=== PATIENT | male | born 1940 | race Caucasian/White ===

== ENCOUNTER 2018-05-01 16:07 | Inpatient (IN) ==
--- NOTE | 2018-05-01 17:35 | Emergency Department Note ---
Disposition Clinical Impression: Agitation Altered mental status Qualifiers: Altered mental status type: unspecified Qualified Code(s): R41.82 - Altered mental status, unspecified Alzheimer's dementia Qualifiers: Alzheimer's disease onset: unspecified onset Dementia behavioral disturbance: with behavioral disturbance Qualified Code(s): G30.9 - Alzheimer's disease, unspecified Disposition: Still a Patient Referrals: Tamiko Loco, VEND[employer] MANAGEMENT SPECIALIST [Primary Care Provider] - Forms: ED Satisfaction Letter Time of Disposition: 18:51 Altered Mental Status HPI - General Chief Complaint: ED Altered Mental Status Stated Complaint: AMS Time Seen by Provider: 05/01/18 16:11 Source: EMS Mode of arrival: EMS Limitations: altered mental status Nursing Notes Reviewed: Yes Vital Signs Reviewed: Yes - History of Present Illness HPI Narrative: Patient is a 77-year-old male presenting for altered mental status and agitation. History of Alzheimer's. Patient states that a few hours prior to arrival, he began to have chest pain in the middle of his chest, complains of current chest pain without shortness of breath, no nausea vomiting or diaphoresis. Earlier today, patient was seen by his primary care provider, at that point in time there was concern for agitation and altered mental status w ith confusion that is briskly worsened over the past few weeks, this is reported by the patient's as well as stepdaughter. They state that at the house, patient has been extremely agitated with increased confusion over the past few weeks briskly worse over the past few days, they state that today he became combative, throwing multiple items in the house, almost hitting the patient's . No recent fever, chills, nausea or vomiting. There were multiple medication changes that were performed today by the primary care provider, per the patient's family. Per , on , patient did have a fall when he was seen in the ER. No further falls or injury. - Related Data Home Medications Medication Instructions Recorded Confirmed Aspirin 81 mg PO DAILY 10/09/14 04/29/18 DiphenhydraMINE [Benadryl] 25 mg PO HS 10/09/14 04/29/18 Finasteride [Proscar] 5 mg PO QAM 10/09/14 04/29/18 Lisinopril [Zestril] 20 mg PO QAM 10/09/14 04/29/18 Mirtazapine [Remeron] 15 mg PO HS 10/09/14 04/29/18 Multivit-Min/FA/Lycopen/Lutein 1 each PO QAM 10/09/14 04/29/18 [Centrum Silver Tablet] Pravastatin Sodium 10 mg PO HS 10/09/14 04/29/18 Previous Rx's Medication Instructions Recorded Meclizine [Antivert] 12.5 mg PO TID PRN #30 tablet 10/10/14 Ondansetron [Zofran] 4 mg PO Q8HR PRN #21 tablet 10/10/14 Polyethylene Glycol 3350 [MiraLAX] 17 gm PO DAILY #30 powd.pack 04/29/18 Allergies Allergy/AdvReac Type Severity Reaction Status Date / Time No Known Allergies Allergy Verified 04/27/18 04:53 Review of Systems: In addition to that documented in the HPI above, the additional ROS was obtained: General: Denies fever. Denies chills. Denies weight loss. Affirms confusion Eyes: Denies visual changes. ENT: Denies nasal congestion. Denies sore throat. Denies hearing change. Cardio: Affirms chest pain. Denies palpitations. Respiratory: Denies cough. Denies shortness of breath. Denies wheezing. GI: Denies nausea, Denies vomiting, or diarrhea. Denies hematochezia denies melena. Denies abdominal pain. : Denies dysuria, hematuria, or urinary retention MSK: Denies back pain. Denies joint swelling. Neuro: Denies slurred speech. Denies numbness or tingling. Denies focal weakness. Denies headache. Denies loss of consciousness. Psych: Affirms agitation Past Medical History - Past Medical History Attestation: Yes The following information was validated with the patient. Medical history: Reports: hyperlipidemia, hypertension Surgical history: Reports: herniorrhaphy Psychiatric history: Reports: no psych history - Social History Smoking Status: Former smoker Smokeless Tobacco Status: No Alcohol use: Reports: none Drug use: Reports: none Physical Exam General: Conversant. No apparent distress. Follow commands. Appears stated age. Neck: No JVD. Trachea midline. Neck supple. Eyes: PERRL. No scleral icterus. HENT: Normocephalic and atraumatic. Moist mucus membranes. Cardiovascular: Regular rate and rhythm. Normal S1 and S2. No murmurs appreciated. Normal capillary refill. Extremities well perfused with 2+ distal pulses bilaterally. No edema. Pulmonary: Normal and equal breath sounds bilaterally, anteriorly and po steriorly. No wheezes, rales, or rhonchi. Not in respiratory distress. Speaks in full sentences. Abdomen: Soft, nondistended, without tenderness. No bruits or masses. No guarding or rebound. Neuro: Alert and oriented x3. No slurred speech. No focal deficits noted. Skin: No rashes noted on visualized skin. Musculoskeletal: No bony abnormalities visualized. Moves all extremities. Psych: Patient becomes agitated during questioning, does get an argument with his while I was in the room. - General Limitations: altered mental status General appearance: alert Course Vital Signs Temperature 97.8 F 05/01/18 16:15 Pulse Rate 80 05/01/18 16:15 Respiratory Rate 20 05/01/18 16:15 Blood Pressure 142/69 05/01/18 16:15 O2 Sat by Pulse Oximetry 100 05/01/18 16:15 Temperature 97.8 F 05/01/18 16:15 Pulse Rate 84 05/01/18 18:19 Respiratory Rate 20 05/01/18 18:19 Blood Pressure 155/82 05/01/18 18:19 O2 Sat by Pulse Oximetry 100 05/01/18 18:19 Oxygen Delivery Oxygen Delivery Room Air Altered Mental Status - [facility] Narrative Medical decision making narrative: Patient is a 77-year-old male presenting with altered mental status. Patient has history of Alzheimer's dementia, brought in for chest pain. Patient is coming by his as well as stepdaughter, states this is been progressive confusion and agitation for the past 2 weeks worse over the past few days. Per family, has had agitation with confrontational behavior to his . On examination, patient does appear agitated, quickly going from, cooperative to agitated threatening to leave and pull off all of his cardiac monitoring system pieces. He currently or is refusing IV. CBC, BMP as well as troponin and EKG were performed as well as chest x-ray and CT of the head, all within normal li mits showing no acute intracranial or intracardiac or pulmonary etiology. BMP does show slight hyponatremic at 128, do not suspect this is the etiology or underlying factor causing the acute confusion and agitation. Suspect this is most likely progressive dementia. Patient will need to be reevaluated by 18, suspect facial will need further evaluation and treatment by geriatric psych. In discussion with the patient's daughter and , they are in agreement with this plan. Patient currently stable, he was given 1 mg IV of Ativan, as he was agitated and became uncooperative. [place] slip signed for the patient at 1858. At this point in time, full workup has been performed, patient is medically cleared, will call 1A for further treatment and evaluation. Patient was signed out to the night team, Dr. Martinez and Dr. Weiss, please refer to the MDM for further management. - Medical Records Medical records reviewed: Yes I reviewed the patient's medical records. - Lab Data Lab results reviewed: Yes I reviewed the patient's lab results. Result diagrams: 05/01/18 17:32 05/01/18 17:32 Lab Results 05/01/18 05/01/18 05/01/18 Range/Units 17:32 17:32 18:20 WBC 9.8 (4.3-11.1) K/mcL RBC 4.81 (4.19-5.50) M/mcL Hgb 14.8 (12.9-16.9) g/dL Hct 42.6 (37.5-50.1) % MCV 88.6 (83.0-100.0) fL MCH 30.8 (28.0-33.3) pg MCHC 34.7 (31.6-35.5) g/dL RDW 11.9 (11.5-14.5) % Plt Count 264 (140-400) K/mcL MPV 9.2 L (9.4-12.4) fL Immature Gran % 0.5 (0-4) % Seg Neutrophils % 62.4 % Lymphocytes % 20.3 % Monocytes % 13.8 % Eosinophils % 2.5 % Basophils % 0.5 % Neutrophils # 6.1 (1.6-8.9) K/mcL Lymphocytes # 2.0 (0.6-4.6) K/mcL Monocytes # 1.4 H (0.0-1.3) K/mcL Eosinophils # 0.2 (0.0-0.6) K/mcL Basophils # 0.1 (0.0-0.2) K/mcL Sodium 128 L (136-145) mEq/L Potassium 3.7 (3.5-5.1) mEq/L Chloride 91 L (98-107) mEq/L Carbon Dioxide 28 (23-29) mEq/L BUN 20 (8-23) mg/dL Creatinine 1.15 (0.70-1.30) mg/dL Est GFR ( Amer) > 60 (> 60) Est GFR (Non-Af Amer) > 60 (> 60) BUN/Creatinine Ratio 17 (6-26) Glucose 100 (70-105) mg/dL Calculated Osmolality 269 L (280-300) Calcium 9.7 (8.6-10.3) mg/dL Total Bilirubin 0.4 (0.3-1.0) mg/dL Direct Bilirubin 0.1 (0.0-0.2) mg/dL Indirect Bilirubin 0.3 (0.0-1.2) mg/dL AST 29 (13-39) Units/L ALT 31 (7-52) Units/L Alkaline Phosphatase 76 (34-104) Units/L Troponin I < 0.03 (< 0.04) ng/mL Serum Total Protein 7.1 (6.4-8.9) g/dL Albumin 4.4 (3.5-5.7) g/dL Globulin 2.7 (2.4-3.5) g/dL Albumin/Globulin Ratio 1.6 (1.1-2.2) TSH 0.722 (0.340-5.600) mcIU/mL Urine Color Yellow (Yellow) Urine Clarity Clear (Clear) Urine pH 6.5 (5.0-8.0) pH Units Ur Specific [place] 1.014 (1.010-1.025) Urine Protein Negative (Neg-Trace) mg/dL Urine Glucose (UA) Normal (Normal) mg/dL Urine Ketones Negative (Negative) mg/dL Urine Blood Negative (Negative) Urine Nitrite Negative (Negative) Urine Bilirubin Negative (Negative) Urine Urobilinogen Normal (Normal) mg/dL Ur Leukocyte Esterase Negative (Negative) Urine Opiates Screen (Cpqafb=527) ng/mL Ur Barbiturates Screen (Upvyvl=190) ng/mL Ur Phencyclidine Scrn (Cutoff=25) ng/mL Ur Amphetamines Screen (Apmzjq=6048) ng/mL U Benzodiazepines Scrn (Zktebd=748) ng/mL Urine Cocaine Screen (Cutoff= 300) ng/mL U Marijuana (THC) Screen (Cutoff = 50) ng/mL Ur Drug Screen Interp 05/01/18 Range/Units 18:20 WBC (4.3-11.1) K/mcL RBC (4.19-5.50) M/mcL Hgb (12.9-16.9) g/dL Hct (37.5-50.1) % MCV (83.0-100.0) fL MCH (28.0-33.3) pg MCHC (31.6-35.5) g/dL RDW (11.5-14.5) % Plt Count (140-400) K/mcL MPV (9.4-12.4) fL Immature Gran % (0-4) % Seg Neutrophils % % Lymphocytes % % Monocytes % % Eosinophils % % Basophils % % Neutrophils # (1.6-8.9) K/mcL Lymphocytes # (0.6-4.6) K/mcL Monocytes # (0.0-1.3) K/mcL Eosinophils # (0.0-0.6) K/mcL Basophils # (0.0-0.2) K/mcL Sodium (136-145) mEq/L Potassium (3.5-5.1) mEq/L Chloride (98-107) mEq/L Carbon Dioxide (23-29) mEq/L BUN (8-23) mg/dL Creatinine (0.70-1.30) mg/dL Est GFR ( Amer) (> 60) Est GFR (Non-Af Amer) (> 60) BUN/Creatinine Ratio (6-26) Glucose (70-105) mg/dL Calculated Osmolality (280-300) Calcium (8.6-10.3) mg/dL Total Bilirubin (0.3-1.0) mg/dL Direct Bilirubin (0.0-0.2) mg/dL Indirect Bilirubin (0.0-1.2) mg/dL AST (13-39) Units/L ALT (7-52) Units/L Alkaline Phosphatase (34-104) Units/L Troponin I (< 0.04) ng/mL Serum Total Protein (6.4-8.9) g/dL Albumin (3.5-5.7) g/dL Globulin (2.4-3.5) g/dL Albumin/Globulin Ratio (1.1-2.2) TSH (0.340-5.600) mcIU/mL Urine Color (Yellow) Urine Clarity (Clear) Urine pH (5.0-8.0) pH Units Ur Specific [place] (1.010-1.025) Urine Protein (Neg-Trace) mg/dL Urine Glucose (UA) (Normal) mg/dL Urine Ketones (Negative) mg/dL Urine Blood (Negative) Urine Nitrite (Negative) Urine Bilirubin (Negative) Urine Urobilinogen (Normal) mg/dL Ur Leukocyte Esterase (Negative) Urine Opiates Screen Negative (Unfyhl=892) ng/mL Ur Barbiturates Screen Negative (Emqqcn=670) ng/mL Ur Phencyclidine Scrn Negative (Cutoff=25) ng/mL Ur Amphetamines Screen Negative (Trwbca=4488) ng/mL U Benzodiazepines Scrn Negative (Kjnmcs=464) ng/mL Urine Cocaine Screen Negative (Cutoff= 300) ng/mL U Marijuana (THC) Screen Negative (Cutoff = 50) ng/mL Ur Drug Screen Interp See Below - Radiology Data Radiology results reviewed: Yes I reviewed the patient's radiology results. - EKG Data EKG attestation: Yes I reviewed and interpreted this EKG. EKG results narrative: EKG performed at 1657 ventricular rate of 81, regular rhythm, normal axis, no ST segment elevation or depression, intervals are all within normal limits. TPA Checklist - LKW: 3-4.5 hrs Add. Warnings/Precautions Patient/family understanding: The patient/family members have been counseled and understood the risk, benefit, and alternatives of treatment.
[2018-05-01 17:46] LABS: Basophils # 0.1 K/mcL (0.0-0.2); Basophils % 0.5 %; Eosinophils # 0.2 K/mcL (0.0-0.6); Eosinophils % 2.5 %; Hematocrit 42.6 % (37.5-50.1); Hemoglobin 14.8 g/dL (12.9-16.9); Immature Granulocytes % 0.5 % (0-4); Lymphocytes % 20.3 %; Mean Corpuscular HGB Conc 34.7 g/dL (31.6-35.5); Mean Corpuscular Hemoglobin 30.8 pg (28.0-33.3); Mean Corpuscular Volume 88.6 fL (83.0-100.0); Mean Platelet Volume 9.2 fL (9.4-12.4); Monocytes # 1.4 K/mcL (0.0-1.3); Monocytes % 13.8 %; Neutrophils # 6.1 K/mcL (1.6-8.9); Platelet Count 264 K/mcL (140-400); Red Blood Count 4.81 M/mcL (4.19-5.50); Red Cell Distribution Width 11.9 % (11.5-14.5); Segmented Neutrophils % 62.4 %
[2018-05-01 18:08] LABS: Alanine Aminotransferase 31 Units/L (7-52); Albumin 4.4 g/dL (3.5-5.7); Albumin/Globulin Ratio 1.6 (1.1-2.2); Alkaline Phosphatase 76 Units/L (34-104); Aspartate Amino Transferase 29 Units/L (13-39); BUN/Creatinine Ratio 17 (6-26); Bilirubin,Direct 0.1 mg/dL (0.0-0.2); Bilirubin,Indirect 0.3 mg/dL (0.0-1.2); Bilirubin,Total 0.4 mg/dL (0.3-1.0); Blood Urea Nitrogen 20 mg/dL (8-23); Calcium 9.7 mg/dL (8.6-10.3); Carbon Dioxide 28 mEq/L (23-29); Chloride 91 mEq/L (98-107); Globulin 2.7 g/dL (2.4-3.5); Glucose 100 mg/dL (70-105); Osmolality,Calculated 269 (280-300); Potassium 3.7 mEq/L (3.5-5.1); Sodium 128 mEq/L (136-145); Total Protein 7.1 g/dL (6.4-8.9); Troponin I < 0.03 ng/mL (< 0.04); eGFR For Non-African Americans > 60 (> 60)
[2018-05-01] MEDS ORDERED: *HR* LORazepam 2 MG/ML VIAL IVP ONE (18:14)
--- NOTE | 2018-05-01 18:17 | Emergency Department Note ---
Disposition Clinical Impression: Alzheimer's dementia, Agitation Altered mental status Qualifiers: Altered mental status type: unspecified Qualified Code(s): R41.82 - Altered mental status, unspecified Disposition: Still a Patient Referrals: Tamiko Loco CNP [Primary Care Provider] - Forms: ED Satisfaction Letter General Adult HPI - General Chief complaint: ED Altered Mental Status Stated complaint: AMS Time Seen by Provider: 05/01/18 16:11 Source: EMS Mode of arrival: EMS Limitations: altered mental status - History of Present Illness Pain Scale: 0 - Related Data Home Medications Medication Instructions Recorded Confirmed Aspirin 81 mg PO DAILY 10/09/14 04/29/18 DiphenhydraMINE [Benadryl] 25 mg PO HS 10/09/14 04/29/18 Finasteride [Proscar] 5 mg PO QAM 10/09/14 04/29/18 Lisinopril [Zestril] 20 mg PO QAM 10/09/14 04/29/18 Mirtazapine [Remeron] 15 mg PO HS 10/09/14 04/29/18 Multivit-Min/FA/Lycopen/Lutein 1 each PO QAM 10/09/14 04/29/18 [Centrum Silver Tablet] Pravastatin Sodium 10 mg PO HS 10/09/14 04/29/18 Previous Rx's Medication Instructions Recorded Meclizine [Antivert] 12.5 mg PO TID PRN #30 tablet 10/10/14 Ondansetron [Zofran] 4 mg PO Q8HR PRN #21 tablet 10/10/14 Polyethylene Glycol 3350 [MiraLAX] 17 gm PO DAILY #30 powd.pack 04/29/18 Allergies Allergy/AdvReac Type Severity Reaction Status Date / Time No Known Allergies Allergy Verified 04/27/18 04:53 Past Medical History - Past Medical History Medical history: Reports: hyperlipidemia, hypertension Surgical history: Reports: herniorrhaphy Psychiatric history: Reports: no psych history - Social History Smoking Status: Former smoker Smokeless Tobacco Status: No Alcohol use: Reports: none Drug use: Reports: none Physical Exam - General Limitations: altered mental status General appearance: alert Course Vital Signs Temperature 97.8 F 05/01/18 16:15 Pulse Rate 80 05/01/18 16:15 Respiratory Rate 20 05/01/18 16:15 Blood Pressure 142/69 05/01/18 16:15 O2 Sat by Pulse Oximetry 100 05/01/18 16:15 Temperature 97.8 F 05/01/18 16:15 Pulse Rate 80 05/01/18 16:15 Respiratory Rate 20 05/01/18 16:15 Blood Pressure 142/69 05/01/18 16:15 O2 Sat by Pulse Oximetry 100 05/01/18 16:15 Oxygen Delivery Oxygen Delivery Room Air Medical Decision Making - Medical Records Medical records reviewed: Yes I reviewed the patient's medical records. - Lab Data Lab results reviewed: Yes I reviewed the patient's lab results. Result diagrams: 05/01/18 17:32 05/01/18 17:32 Lab Results 05/01/18 05/01/18 Range/Units 17:32 17:32 WBC 9.8 (4.3-11.1) K/mcL RBC 4.81 (4.19-5.50) M/mcL Hgb 14.8 (12.9-16.9) g/dL Hct 42.6 (37.5-50.1) % MCV 88.6 (83.0-100.0) fL MCH 30.8 (28.0-33.3) pg MCHC 34.7 (31.6-35.5) g/dL RDW 11.9 (11.5-14.5) % Plt Count 264 (140-400) K/mcL MPV 9.2 L (9.4-12.4) fL Immature Gran % 0.5 (0-4) % Seg Neutrophils % 62.4 % Lymphocytes % 20.3 % Monocytes % 13.8 % Eosinophils % 2.5 % Basophils % 0.5 % Neutrophils # 6.1 (1.6-8.9) K/mcL Lymphocytes # 2.0 (0.6-4.6) K/mcL Monocytes # 1.4 H (0.0-1.3) K/mcL Eosinophils # 0.2 (0.0-0.6) K/mcL Basophils # 0.1 (0.0-0.2) K/mcL Sodium 128 L (136-145) mEq/L Potassium 3.7 (3.5-5.1) mEq/L Chloride 91 L (98-107) mEq/L Carbon Dioxide 28 (23-29) mEq/L BUN 20 (8-23) mg/dL Creatinine 1.15 (0.70-1.30) mg/dL Est GFR ( Amer) > 60 (> 60) Est GFR (Non-Af Amer) > 60 (> 60) BUN/Creatinine Ratio 17 (6-26) Glucose 100 (70-105) mg/dL Calculated Osmolality 269 L (280-300) Calcium 9.7 (8.6-10.3) mg/dL Total Bilirubin 0.4 (0.3-1.0) mg/dL Direct Bilirubin 0.1 (0.0-0.2) mg/dL Indirect Bilirubin 0.3 (0.0-1.2) mg/dL AST 29 (13-39) Units/L ALT 31 (7-52) Units/L Alkaline Phosphatase 76 (34-104) Units/L Troponin I < 0.03 (< 0.04) ng/mL Serum Total Protein 7.1 (6.4-8.9) g/dL Albumin 4.4 (3.5-5.7) g/dL Globulin 2.7 (2.4-3.5) g/dL Albumin/Globulin Ratio 1.6 (1.1-2.2) - Radiology Data Radiology results reviewed: Yes I reviewed the patient's radiology results. Attestation Statement - Attestation Attestation: I examined this patient and my medical decision-making was reviewed with the Resident Physician. I agree with the documented findings, disposition and treatment plan as described except to the extent set forth below. 77-year-old male presents emergency room for psychiatric evaluation. Patient apparently has a history of Alzheimer's. His had increasing aggression and agitation and confusion over the last couple weeks. Patient is becoming more aggressive with family members. He said change in personality and behavior. Appetite changes as well. Concerns for worsening psychiatric disease. Patient was sent to the ER for evaluation and medical clearance to be placed somewhere for psychiatric evaluation. Patient is alert and oriented at this time. He has no complaints to us. There was complaints of chest pain earlier today. Patient was also confused and agitated at that time. EKG was nondiagnostic. CT of the head was negative. Chest x-ray was normal. Awaiting lab work and drug urinalysis screen.
[2018-05-01 18:21] LABS: Thyroid Stimulating Hormone 0.722 mcIU/mL (0.340-5.600)
[2018-05-01] MEDS ORDERED: *HR* LORazepam 2 MG/ML VIAL IM ONE (18:21)
[2018-05-01 18:39] LABS: Bilirubin,Urine Negative (Negative); Blood,Urine Negative (Negative); Clarity,Urine Clear (Clear); Color,Urine Yellow (Yellow); Glucose,Urine (UA) Normal (Normal); Ketones,Urine Negative (Negative); Leukocyte Esterase,Urine Negative (Negative); Nitrite,Urine Negative (Negative); PH,Urine 6.5 pH Units (5.0-8.0); Protein,Urine Negative (Neg-Trace); Specific Gravity,Urine 1.014 (1.010-1.025); Urobilinogen,Urine Normal (Normal)
[2018-05-01 18:59] LABS: Amphetamine Screen,Urine Negative ng/mL (Cutoff=1000); Barbiturate Screen,Urine Negative ng/mL (Cutoff=200); Benzodiazepines Screen,Urine Negative ng/mL (Cutoff=200); Cannabinoid Screen,Urine Negative ng/mL (Cutoff = 50); Cocaine Screen,Urine Negative ng/mL (Cutoff= 300); Opiate Screen,Urine Negative ng/mL (Cutoff=300); Phencyclidine Screen,Urine Negative ng/mL (Cutoff=25)
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
[2018-05-01] MEDS ORDERED: 0.9 % Sodium Chloride 500 ML IVC ONE (20:31)
[2018-05-01] MEDS ORDERED: Naloxone 0.4 MG/ML INJ IVP PRN (22:17)
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
[2018-05-02] MEDS: traMADol 50 MG TABLET PO PRN ×2 (00:20→17:42)
[2018-05-02] MEDS ORDERED: BENZOCAINE/MENTHOL 1 LOZENGE (BAG OF 6) MM PRN (01:47)
[2018-05-02 01:53] LABS: Hematocrit 36.4 % (37.5-50.1); Mean Corpuscular HGB Conc 35.7 g/dL (31.6-35.5); Mean Corpuscular Hemoglobin 31.3 pg (28.0-33.3); Mean Corpuscular Volume 87.7 fL (83.0-100.0); Mean Platelet Volume 9.2 fL (9.4-12.4); Platelet Count 211 K/mcL (140-400); Red Blood Count 4.15 M/mcL (4.19-5.50); Red Cell Distribution Width 11.8 % (11.5-14.5)
[2018-05-02 02:08] LABS: BUN/Creatinine Ratio 15 (6-26); Blood Urea Nitrogen 15 mg/dL (8-23); Calcium 8.6 mg/dL (8.6-10.3); Carbon Dioxide 22 mEq/L (23-29); Chloride 93 mEq/L (98-107); Cholesterol 136 mg/dL (< 200); Glucose 160 mg/dL (70-105); HDL Cholesterol 46 mg/dL (40-59); LDL Cholesterol,Calculated 71 mg/dL (0-99); Magnesium 2.1 mg/dL (1.6-2.6); Osmolality,Calculated 264 (280-300); Potassium 3.8 mEq/L (3.5-5.1); Sodium 125 mEq/L (136-145); Triglycerides 97 mg/dL (< 150); eGFR For Non-African Americans > 60 (> 60)
[2018-05-02 04:03] LABS: Adenovirus Not Detected (Not Detect); Bordetella Pertussis Not Detected (Not Detect); Chlamydophila pneumoniae Not Detected (Not Detect); Coronavirus 229E Not Detected (Not Detect); Coronavirus HKU1 Not Detected (Not Detect); Coronavirus NL63 Not Detected (Not Detect); Coronavirus OC43 Not Detected (Not Detect); Human Metapneumovirus Not Detected (Not Detect); Human Rhinovirus/Enterovirus Not Detected (Not Detect); Influenza A Subtype 2009 H1 Not Detected (Not Detect); Influenza A Untypeable Not Detected (Not Detect); Influenza B Not Detected (Not Detect); Mycoplasma pneumoniae Not Detected (Not Detect); Parainfluenza Virus 1 Not Detected (Not Detect); Parainfluenza Virus 2 Not Detected (Not Detect); Parainfluenza Virus 3 Not Detected (Not Detect); Parainfluenza Virus 4 Not Detected (Not Detect); Respiratory Syncytial Virus Not Detected (Not Detect)
[2018-05-02] MEDS: Lisinopril 20 MG TABLET PO SCH (09:32)
[2018-05-02] MEDS: amLODIPine 5 MG TABLET PO SCH (09:32)
[2018-05-02] MEDS: Finasteride 5 MG TABLET PO SCH (09:32)
[2018-05-02] MEDS: Loratadine 10 MG TABLET PO SCH (09:32)
[2018-05-02] MEDS: Aspirin 81 MG TAB.CHEW PO SCH (09:32)
--- NOTE | 2018-05-02 09:35 | Neurology - Consult Note ---
<Celso Sanchez - Last Filed: 05/02/18 09:33> Date of Encounter: 05/02/18 Time of Encounter: 09:33 Assessment and Plan (1) Altered mental status Current Visit: Yes Status: Acute neurology consulted to evaluate for cause of altered mental state. Patient has had progressive agitation, combativeness and mental status alterations times approximately 2 weeks. Etiology remains unclear. Likely multifactorial with metabolic derangements and new medication changes. Encephalopathic. Neuro exam is nonfocal and nonlateralizing. MRI of brain negative for acute intracranial abnormality; chronic microvascular ischemic changes seen. CT of head negative for acute abnormality. PLAN: EEG Evaluate medication list; D/W regarding new medications. History of Present Illness Chief complaint: AMS, aggression and episodic confusion HPI: Mr. Denney is a 77 year old male with a PMH of HLD, HTN, and dementia who presents to the ED with an altered mental state, headache, increased anger and aggressive and combative behavior over the past week. This behavior has been progressively worse over the last few days. He has also had a disturbed sleep/wake cycle with the spouse reporting that he has not been sleeping well. He denies any neuro s/sx including visual changes, dizziness/lightheadedness, dysphagia, dysarthria, and/neck pain, fevers, chills, nausea, vomiting, diarrh ea, urinary S/SX, unilateral weakness/paresthesias. CT of head completed in the ED and was found to be negative for acute intracranial abnormality. MRI of the brain completed today showing no acute intracranial abnormality, no acute infarction or medial temporal sclerosis. Findings on MRI showing age related parenchymal volume loss and mild chronic microvascular ischemic changes. Past Med Surg Social Fam HX - Past Medical History Medical history: hyperlipidemia, hypertension, other (Urinary retention) Additional medical history: ALZHEIMERS Psychiatric history: depression - Past Surgical History Surgical History: herniorrhaphy Additional surgical history: heart cath - Social History Smoking Status: Former smoker Packs per day: 1 PPD - Reports quitting 35 years ago Smokeless Tobacco Status: No Alcohol use: none Drug use: none - Family History Mother Race: Family Member Ethnicity: Non- Living Status: Age at : 94 Cause of : Alzheimer's disease Hx Family Endocrine Disorder: Yes (DM) Brother Race: Family Member Ethnicity: Non- Living Status: Still Living Hx Family Cardiac Disorders: Yes (CAD, CABG) Sister Race: Family Member Ethnicity: Non- Living Status: Age at : 20 Cause of : Colon cancer Hx Family Cancer: Yes (Colon) Father Race: Family Member Ethnicity: Non- Living Status: Cause of : Cancer Hx Family Cardiac Disorders: Yes Hx Family Cancer: Yes (Prostate cancer) Medications and Allergies Aspirin 81 mg PO DAILY 10/09/14 [History] Finasteride [Proscar] 5 mg PO QAM 10/09/14 [History] Lisinopril [Zestril] 20 mg PO QAM 10/09/14 [History] Mirtazapine [Remeron] 15 mg PO HS 10/09/14 [History] Pravastatin Sodium 10 mg PO HS 10/09/14 [History] Polyethylene Glycol 3350 [MiraLAX] 17 gm PO DAILY #30 powd.pack 04/29/18 [Rx] Donepezil [Aricept] 5 mg PO HS 05/01/18 [History] Fluticasone Propionate Nasal [Flonase] 100 mcg NS DAILY 05/01/18 [History] LORazepam [Ativan] 0.5 - 1 mg PO HS PRN 05/01/18 [History] Loratadine [Allergy Relief] 10 mg PO DAILY 05/01/18 [History] amLODIPine [Norvasc] 5 mg PO DAILY 05/01/18 [History] Allergy/AdvReac Type Severity Reaction Status Date / Time No Known Allergies Allergy Verified 04/27/18 04:53 All Systems: The remainder of the systems were reviewed and are negative Review of Systems: REVIEW OF SYSTEMS GENERAL: Negative for any nausea, vomiting, fevers, chills, or weight loss, fatigue NEUROLOGIC: Negative for any visual changes, facial asymmetry, dysphagia, dysa rthria, hemiparesis, hemisensory deficits, convulsive activity, unilateral weakness or numbness/tingling, or parasthesias Positive for episodic dizziness without aggravating factors PSYCH: Positive for agitation/irritability, and aggression (new to patient) HEENT: Negative for any head trauma, neck trauma, neck stiffness, photophobia, phonophobia CARDIAC: Negative for any chest pain, dyspnea, palpitations GASTROINTESTINAL: Negative for any abdominal pain, nausea, vomiting GENITOURINARY: Negative for any dysuria, incontinence, or polyuria. MUSCULOSKELETAL: denies loss of strength Physical Examination - Vital Signs Vital Signs: Initial Vital Signs Temp Pulse Resp BP Pulse Ox 97.8 F 80 20 142/69 100 05/01/18 16:15 05/01/18 16:15 05/01/18 16:15 05/01/18 16:15 05/01/18 16:15 - Exam Exam: Examination: General Examination: *CONSTITUTIONAL: Alert and oriented x3, no acute distress *GENERAL APPEARANCE OF PATIENT elderly male, overall appears healthy and well groomed *EYES: pupils equal, round, reactive to light and accommodation, conjunctiva clear *CARDIOVASCULAR RRR, S1, S2, no peripheral edema, 2+ radial and dorsalis pedis pulses normal. Musculoskeletal: *GAIT AND STATION normal, with normal Romberg testing, no abnormalities such as broad base gait or spasticity *ASSESSMENT OF MUSCLE STRENGTH IN THE UPPER AND LOWER EXTREMITIES bilateral deltoid, bicep, tricep, blast hole driller strength, hip flexors ,anterior tibialis, dorsoflexion of the foot 5/5 *MUSCLE TONE IN THE UPPER AND LOWER EXTREMITIES normal. No abnormal movements, fasciculations or atrophy identified. Neurological: *ORIENTATION to person, situation, time and place *RECURRENT AND REMOTE MEMORY intact *ATTENTION AND CONCENTRATION are normal *LANGUAGE FUNCTION no significant aphasia or dysarthia was noted. *FUND OF KNOWLEDGE aware of current events, past history, vocabulary *MENTAL attention span and concentration normal. *CN II optic fundi were normal, no papilledema noted. *CN III,IV, PERRLA extraocular eye movements were full, no nystagmus and no ptosis noted. *CN V shows normal sensation and jaw opens symmetrically. *CN VII shows normal facial movement symmetrically, upper and lower bilaterally. *CN VIII shows no significant hearing loss on exam *CN IX,,X palate elevated symmetrically *CN XI normal strength in the sternocleidomastoid muscles, symmetrical shoulder shrugging. *CN XII tongue protruded in the midline, with normal strength and movement. *SENSORY EXAMINATION light touch intact *REFLEXES: deep tendon reflexes were normal and symmetrical , grade 2/4 diffusely, no pathological reflexes were noted. *CEREBELLAR TESTING normal finger to nose, heel/knee/haynes *PAIN LEVEL 0 Results - Laboratory Findings CBC and BMP: 05/02/18 01:12 05/02/18 01:12 Abnormal lab findings: Abnormal lab results RBC 4.15 M/mcL (4.19-5.50) L 05/02/18 01:12 Hct 36.4 % (37.5-50.1) L 05/02/18 01:12 MCHC 35.7 g/dL (31.6-35.5) H 05/02/18 01:12 MPV 9.2 fL (9.4-12.4) L 05/02/18 01:12 Monocytes # 1.4 K/mcL (0.0-1.3) H 05/01/18 17:32 Sodium 125 mEq/L (136-145) L 05/02/18 01:12 Chloride 93 mEq/L (98-107) L 05/02/18 01:12 Carbon Dioxide 22 mEq/L (23-29) L 05/02/18 01:12 Glucose 160 mg/dL (70-105) H 05/02/18 01:12 Calculated Osmolality 264 (280-300) L 05/02/18 01:12 - Diagnostic Findings Additional findings: XR/XR chest 1V portable IMPRESSION: No radiographic evidence of acute cardiopulmonary process. CT/CT head/brain wo con IMPRESSION: No acute intracranial abnormality. MR/MR head/brain wo con IMPRESSION: 1. No acute intracranial abnormality. No acute infarction or medial temporal sclerosis. 2. Age-related parenchymal volume loss and mild chronic microvascular ischemic changes. Consult Discharge Plan - Plan Referrals: Tamiko Loco CNP [Primary Care Provider] - <Otto Severino I - Last Filed: 05/02/18 16:01> Date of Encounter: 05/02/18 Assessment and Plan (1) Altered mental status Current Visit: Yes Status: Acute I have personally performed a face to face diagnostic evaluation, including HPI, EXAM, which is included in the Assesment and plan, which was discussed with Celso Sanchez CNP, I agree with the above outlined documentation. Otto Severino MD. NeurologyI Qualifiers: Qualified Code(s): R41.0 - Disorientation, unspecified History of Present Illness HPI: Mr. Denney is a 77 year old male All Systems: The remainder of the systems were reviewed and are negative Physical Examination - Vital Signs Vital Signs: Initial Vital Signs Temp Pulse Resp BP Pulse Ox 97.8 F 80 20 142/69 100 05/01/18 16:15 05/01/18 16:15 05/01/18 16:15 05/01/18 16:15 05/01/18 16:15 Results - Laboratory Findings CBC and BMP: 05/02/18 01:12 05/02/18 01:12 Abnormal lab findings: Abnormal lab results RBC 4.15 M/mcL (4.19-5.50) L 05/02/18 01:12 Hct 36.4 % (37.5-50.1) L 05/02/18 01:12 MCHC 35.7 g/dL (31.6-35.5) H 05/02/18 01:12 MPV 9.2 fL (9.4-12.4) L 05/02/18 01:12 Monocytes # 1.4 K/mcL (0.0-1.3) H 05/01/18 17:32 Sodium 125 mEq/L (136-145) L 05/02/18 01:12 Chloride 93 mEq/L (98-107) L 05/02/18 01:12 Carbon Dioxide 22 mEq/L (23-29) L 05/02/18 01:12 Glucose 160 mg/dL (70-105) H 05/02/18 01:12 Serum Osmolality 260 mOsm/kg (280-300) L 05/02/18 10:17 Calculated Osmolality 264 (280-300) L 05/02/18 01:12 Folate 21.0 ng/mL (3.0-16.0) H 05/02/18 10:17 Urine Osmolality 87 mOsm/kg (300-1090) L 05/02/18 11:45
--- NOTE | 2018-05-02 09:55 | Internal Med Progress Note ---
Hospitalist Progress Note - Encounter Date of Encounter: 05/02/18 Time of Encounter: 09:55 - Subjective Interval History: He was seen and examined at bedside currently patient is alert and oriented 3 following simple commands denies any suicidal or homicidal ideations at this time no seizure activity noted continues to be on one-to-one observation - Exam Vitals: Temp Pulse Resp BP Pulse Ox 98.4 F 87 16 124/72 96 05/02/18 06:19 05/02/18 06:19 05/02/18 06:19 05/02/18 06:19 05/02/18 06:19 Exam: Skin: Free of rash and discoloration. Eyes: Sclera is white. There is no discharge from eyes. ENMT: Oral/pharyngeal mucosa is normal in appearance. There is no discharge from nose or ears. Respiratory: Normal breath sounds with no crackles and wheezes bilaterally. CV: Heart is regular with no gallop or murmur. GI: Abdomen is flat and soft with no palpable mass or visceromegaly. : There is no tenderness in patient's flanks bilaterally. Neuro exam: He has good strength in upper and lower extremities. He has normal eye movements. Psychiatric: He has normal affect. His thought process is appropriate to the situation. - Assessment and Plan (1) Acute encephalopathy Current Visit: Yes Status: Acute Assessment and Plan: Suspect that this is multifactorial however etiology remains unclear possible metabolic/ dementia- patient does have some hyponatremia and has had some new medication changes. Patient has not been sleeping which could be contributing -Infectious workup is been negative We will check thiamine B12 and folic acid check TSH MRI no acute intracranial abnormalities no acute infarcts or medial temporal sclerosis CT of head negative for any intracranial abnormalities Avoid benzos continue with Haldol and Seroquel as well as Aricept and Remeron Neurology and psychiatry have been consulted and appreciate recommendations EEG ordered per neurology (2) HTN (hypertension) Current Visit: Yes Status: Chronic Assessment and Plan: Hx of chronic HTN. Monitor pt. and VS. currently stable continue to monitor continue home medications (3) Suicidal ideation Current Visit: Yes Status: Acute Assessment and Plan: Presentation patient displayed acute suicidal ideations. 02/14 sitter. Currently patient denies any suicidal or homicidal thoughts -patient has been pleasant and cooperative psychiatry was consulted-recommending continue Seroquel 25 mg by mouth daily at bedtime and discontinuing medication once altered mental state has improved recommending continuing 1-1 sitter-due to waning delirium - recommending discontinuing 1-1 sitter once prolonged baseline is seen Avoid benzos recommending Haldol 5 mg by mouth every hours when necessary for severe agitation A (4) Behavior safety risk Current Visit: Yes Status: Acute Assessment and Plan: Patient is calm and cooperative today seen by psychiatry recommending continue Seroquel 25 mg daily at bedtime for calming Continue home dose of mirtazapine and denies a Prill Hold lorazepam and avoid benzos Haldol 5 mg orally every 8 hours as needed for severe agitation and combative behavior Continue with / observation Fall precautions (5) Chronic headaches Current Visit: Yes Status: Acute Assessment and Plan: Currently denies any headaches -MRI of brain showing no acute intracranial abnormality no acute infarction or medial temporal sclerosis CT of head completed in the ED and was found to be negative for any acute intracranial abnormality Neurology has been consulted and appreciate recommendations A (6) Discomfort in chest Current Visit: Yes Status: Acute Assessment and Plan: Troponins negative [address]-T wave abnormalities continue with aspirin and statin Echo pending (7) SOB (shortness of breath) Current Visit: Yes Status: Acute Assessment and Plan: Oxygen saturation has been stable he has been able the room without any difficulty Echo has been ordered and is pending (8) History of appetite changes Current Visit: Yes Status: Acute Assessment and Plan: Nutritional consult for supplements (9) Insomnia Current Visit: Yes Status: Acute Assessment and Plan: Continue with Seroquel and sitter (10) HLD (hyperlipidemia) Current Visit: Yes Status: Chronic Assessment and Plan: Hx of chronic HLD. Lipid panel in a.m. labs. Continue pts. Zocor. (11) DVT prophylaxis Current Visit: Yes Status: Acute Assessment and Plan: Bilateral SCDs on LEs for DVT prophylaxis until MRI done and resulted. (12) Dementia Current Visit: Yes Status: Chronic Assessment and Plan: Hx of dementia. Continue pts. Aricept w/caution d/t risk of QT prolongation. Cardiac monitoring ordered. (13) Anxiety and depression Current Visit: Yes Status: Chronic Assessment and Plan: Hx of anxiety and depression. Pt. takes Ativan and Remeron daily. Will continue these. Adding Seroquel 25 mg HS per Neurology recommendations for behavioral changes. (14) Weakness Current Visit: Yes Status: Acute Assessment and Plan: Consult PT and OT Falls precautions Obtain cardiac echo Rule out infectious process-respiratory panel is negative blood cultures are pending no white count chest x-ray no acute process urinalysis negative (15) Hyponatremia Current Visit: Yes Status: Acute Assessment and Plan: Sodium 125 today no neurological deficits noted no seizure activity noted. Nursing staff reports patient has been drinking large quantities of water-this may be contributing to his hyponatremia Will obtain urine osmole and serum osmole and urine sodium We will place on fluid restriction 1.5 mL Monitor intake and output Monitor sodium - Time Spent with Patient Total time spent is greater than 50% in coordination of care (as documented) at patient's floor/unit and/or counseling patient: Internal Medicine: Result - Labs CBC & Chem 7: 05/02/18 01:12 05/02/18 01:12 Labs: Short CBC 05/01/18 05/02/18 Range/Units 17:32 01:12 WBC 9.8 6.5 (4.3-11.1) K/mcL Hgb 14.8 13.0 D (12.9-16.9) g/dL Hct 42.6 36.4 L (37.5-50.1) % Plt Count 264 211 (140-400) K/mcL Neutrophils # 6.1 (1.6-8.9) K/mcL BMP 05/01/18 05/02/18 17:32 01:12 Sodium 128 L 125 L Potassium 3.7 3.8 Chloride 91 L 93 L Carbon Dioxide 28 22 L BUN 20 15 Creatinine 1.15 0.98 Glucose 100 160 H Calcium 9.7 8.6 Cardiac Enzymes 05/01/18 05/01/18 05/02/18 Range/Units 17:32 22:56 01:12 Troponin I < 0.03 < 0.03 < 0.03 (< 0.04) ng/mL Liver Function 05/01/18 Range/Units 17:32 Total Bilirubin 0.4 (0.3-1.0) mg/dL Direct Bilirubin 0.1 (0.0-0.2) mg/dL AST 29 (13-39) Units/L ALT 31 (7-52) Units/L Alkaline Phosphatase 76 (34-104) Units/L Albumin 4.4 (3.5-5.7) g/dL Urine 03/18/19 Range/Units 18:20 Urine Color Yellow (Yellow) Urine Clarity Clear (Clear) Urine pH 6.5 (5.0-8.0) pH Units Ur Specific [place] 1.014 (1.010-1.025) Urine Protein Negative (Neg-Trace) mg/dL Urine Glucose (UA) Normal (Normal) mg/dL - Impressions Impressions Chest X-Ray 05/01/18 16:48 IMPRESSION: No radiographic evidence of acute cardiopulmonary process. D/ / 05/01/2018 17:10:59 Bob Torres MD / xuan Interpreting Provider: Bob Torres MD Head CT 05/01/18 17:26 IMPRESSION: No acute intracranial abnormality. D/ / Xenia Allison MD / Xenia Allison MD Interpreting Provider: Xenia Allison MD Brain MRI 05/02/18 21:56 IMPRESSION: 1. No acute intracranial abnormality. No acute infarction or medial temporal sclerosis. 2. Age-related parenchymal volume loss and mild chronic microvascular ischemic changes. D/ / 05/02/2018 08:16:02 Zane Xiao MD / xuan Interpreting Provider: Zane Xiao MD - VTE Documentation of Mechanical Device: Intermittent pneumatic compression device Consult Discharge Plan - Plan Referrals: Tamiko Loco, [facility] [Primary Care Provider] - (2) HTN (hypertension) Qualifiers: Hypertension type: essential hypertension Qualified Code(s): I10 - Essential (primary) hypertension (5) Chronic headaches Qualifiers: Headache type: unspecified Intractability: intractable Qualified Code(s): R51 - Headache (9) Insomnia Qualifiers: Insomnia type: other insomnia Qualified Code(s): G47.09 - Other insomnia (10) HLD (hyperlipidemia) Qualifiers: Hyperlipidemia type: pure hypercholesterolemia Qualified Code(s): E78.00 - Pure hypercholesterolemia, unspecified; E78.0 - Pure hypercholesterolemia (12) Dementia Qualifiers: Dementia type: unspecified type Dementia behavioral disturbance: with behavioral disturbance Qualified Code(s): F03.91 - Unspecified dementia with behavioral disturbance
[2018-05-02] MEDS: Acetaminophen 325 MG TABLET PO PRN ×2 (10:03→19:41)
[2018-05-02] MEDS: Fluticasone Propionate Nasal 50 MCG/SPRAY BOTTLE NS SCH (10:03)
--- NOTE | 2018-05-02 13:05 | Consult Note ---
Date of Encounter: 05/03/18 Time of Encounter: 12:40 Assessment & Recommendation (1) Altered mental status Current visit: Yes Status: Acute Assessment & Recommendation: -Due to several confounding factors, including a current sodium of 125, it is unlikely that the altered mental status experience is purely due to to psychiatric illness or dementia. -Recommend continuing quetiapine 25 mg by mouth daily at bedtime for calming, discontinuing medication once altered mental status has improved -Recommend continuing home doses of mirtazapine and donepezil -Recommend continuing the hold home dose of lorazepam, as this can further confuse the patient -Recommend starting haloperidol 5 mg by mouth every 8 hours when necessary if there is any severe agitation or combative behavior -Recommend against starting benzodiazepines or other sedating drugs, as it can make the patient's altered mental status worse -Recommend continuing one-to-one sitter, as current status may be a waning of delirium. May recommend discontinuing one-to-one sitter once prolonged baseline is seen -Will continue to monitor Qualifiers: Altered mental status type: delirium Qualified Code(s): R41.0 - Disorientation, unspecified History of Present Illness Patient: new to practice Requesting Physician: Gaye Moseley MD Reason for consult: Altered mental status History of present illness: Mr. Denney is a 77 year old male with a past psychiatric history of major neuroc ognitive disorder, Alzheimer's type who was admitted on 05/01/2018 and he was consulted today for altered mental status. Reports state that and daughter explained that patient has become increasingly combative over the past few weeks. Patient presented to his PCP before admission he suggested that the visit due to altered mental status. Patient was admitted on 04/27/2018 and discharged on 04/29/2018 for weakness status post fall. Reports also explained that patient reported suicidal ideation due to the idea that he was dying. He was pink slipped. When speaking with the patient, he is logical and linear and speech, stating that he is "a lot better." He explains that he had carbon monoxide poisoning causing his medical issues. He reports a current 10 out of 10 headache and uses this headache to explain a lot of the questions he is unable to answer. He is unable to give this provider that date, even the year. He is not able to tell his provider the president's name, but was able to explain core aspects of him, stating that he has "a lot of money." He was also unable to out right state how many children he has, having to count them out. He denies issues of depression and anxiety today. He denies issues of appetite. He does report poor sleep but explains that his PCP assist with this. He denies side effects to his psychiatric medications. He denies current SI, HI, AH, and VH. He does admit to suicidal ideation previously in the admission. He explains that he had a "when I thought I was going to ." He reports that "nobody was going to help me, so as to help myself." However, he reports that he is not going to really harm himself, stating "I do not want to go down, I want to go up." He reports protective factors of "I want to go to [facility]." He denies past suicide attempts. He denies current SI. Nursing staff denies any abnormal behavior or combative behavior since she has been on shift this a.m. CC: Gaye Moseley MD Past Med Surg Social Fam HX - Past Medical History Source: patient Medical history: hyperlipidemia, hypertension, other (Urinary retention) - Past Psychiatric History Psychiatric history: Reports: anxiety, depression, other (Major neurocognitive disorder). Denies: prior suicide attempt Past psychiatric history details: Denies history of suicide attempt Family psychiatric history: Unknown Family History of Suicide: Unknown - Past Surgical History Surgical History: herniorrhaphy - Social History Smoking Status: Former smoker Smokeless Tobacco Status: No Alcohol use: none Drug use: none Occupational status: other Current living situation: Other Activity Level: Other - Family History Brother Race: Family Member Ethnicity: Non- Living Status: Still Living Hx Family Cardiac Disorders: Yes (CAD, CABG) Father Race: Family Member Ethnicity: Non- Living Status: Cause of : Cancer Hx Family Cardiac Disorders: Yes Hx Family Cancer: Yes (Prostate cancer) Mother Race: Family Member Ethnicity: Non- Living Status: Age at : 94 Cause of : Alzheimer's disease Hx Family Endocrine Disorder: Yes (DM) Sister Race: Family Member Ethnicity: Non- Living Status: Age at : 20 Cause of : Colon cancer Hx Family Cancer: Yes (Colon) Medications & Allergies RX: Aspirin 81 mg PO DAILY 10/09/14 [History] RX: Finasteride [Proscar] 5 mg PO QAM 10/09/14 [History] RX: Lisinopril [Zestril] 20 mg PO QAM 10/09/14 [History] RX: Mirtazapine [Remeron] 15 mg PO HS 10/09/14 [History] RX: Pravastatin Sodium 10 mg PO HS 10/09/14 [History] Polyethylene Glycol 3350 [MiraLAX] 17 gm PO DAILY #30 powd.pack 04/29/18 [Rx] Donepezil [Aricept] 5 mg PO HS 05/01/18 [History] Fluticasone Propionate Nasal [Flonase] 100 mcg NS DAILY 05/01/18 [History] LORazepam [Ativan] 0.5 - 1 mg PO HS PRN 05/01/18 [History] Loratadine [Allergy Relief] 10 mg PO DAILY 05/01/18 [History] amLODIPine [Norvasc] 5 mg PO DAILY 05/01/18 [History] Allergy/AdvReac Type Severity Reaction Status Date / Time No Known Allergies Allergy Verified 04/27/18 04:53 Review of Systems Neurological: Reports: headache Psychiatric: Reports: abnormal sleep pattern, memory loss. Denies: depression, anxiety, suicidal ideation, homicidal ideation, auditory hallucinations, visual hallucinations, confusion Psychiatry Exam - Constitutional Vitals: Temp Pulse Resp BP Pulse Ox 98.2 F 76 15 129/74 98 05/02/18 12:11 05/02/18 12:11 05/02/18 12:11 05/02/18 12:11 05/02/18 12:11 General appearance: age & developmentally appropriate, well-groomed, well- nourished, average - Musculoskeletal Gait: other (Not assessed) Station: relaxed Strength & Tone: normal for patient (Grossly) - Psychiatric Patient Orientation: Yes Person, Yes Time, Yes Place, Yes Circumstance (Did not know the president's name, was able to state core aspects about him, such as him having great wealth in that his was young) Level of alertness: Alert, Follows commands Behavior: calm, cooperative Psychomotor activity: Normal Eye Contact: Maintains Eye Contact Mood Description: Euthymic/stable Patient description of mood: "A lot better" Affect description: congruent with mood, full range Speech Volume: Normal Speech pattern: normal rate, normal rhythm, normal tone, fluent, spontaneous Language & Vocabulary: consistent with education Thought Process: Logical, Linear, Goal Oriented Thought Content: No Suicidal ideation, No Homicidal ideation, No Overt delusions Perceptual Disturbances: No Reacting to internal stimuli, No Auditory hallucinations, No Visual hallucinations Attention Span Ability: Capable of Focused Attention Memory Description: Grossly Intact Patient Reliability: Questionable Historian Fund of knowledge: Yes abstraction ability, Yes aware of current events Intelligence Estimate: Average Judgment: Fair Insight: Partial Results - Drug Levels and Toxicology Drug Levels and Toxicology: Drug Levels and Toxicity 05/01/18 18:20 Urine Opiates Screen Negative Ur Barbiturates Screen Negative Ur Phencyclidine Scrn Negative Ur Amphetamines Screen Negative U Benzodiazepines Scrn Negative Urine Cocaine Screen Negative U Marijuana (THC) Screen Negative - Labs Labs: Laboratory Last Values WBC 6.5 K/mcL (4.3-11.1) 05/02/18 01:12 RBC 4.15 M/mcL (4.19-5.50) L 05/02/18 01:12 Hgb 13.0 g/dL (12.9-16.9) D 05/02/18 01:12 Hct 36.4 % (37.5-50.1) L 05/02/18 01:12 MCV 87.7 fL (83.0-100.0) 05/02/18 01:12 MCH 31.3 pg (28.0-33.3) 05/02/18 01:12 MCHC 35.7 g/dL (31.6-35.5) H 05/02/18 01:12 RDW 11.8 % (11.5-14.5) 05/02/18 01:12 Plt Count 211 K/mcL (140-400) 05/02/18 01:12 MPV 9.2 fL (9.4-12.4) L 05/02/18 01:12 Immature Gran % 0.5 % (0-4) 05/01/18 17:32 Seg Neutrophils % 62.4 % 05/01/18 17:32 Lymphocytes % 20.3 % 05/01/18 17:32 Monocytes % 13.8 % 05/01/18 17:32 Eosinophils % 2.5 % 05/01/18 17:32 Basophils % 0.5 % 05/01/18 17:32 Neutrophils # 6.1 K/mcL (1.6-8.9) 05/01/18 17:32 Lymphocytes # 2.0 K/mcL (0.6-4.6) 05/01/18 17:32 Monocytes # 1.4 K/mcL (0.0-1.3) H 05/01/18 17:32 Eosinophils # 0.2 K/mcL (0.0-0.6) 05/01/18 17:32 Basophils # 0.1 K/mcL (0.0-0.2) 05/01/18 17:32 Sodium 125 mEq/L (136-145) L 05/02/18 01:12 Potassium 3.8 mEq/L (3.5-5.1) 05/02/18 01:12 Chloride 93 mEq/L (98-107) L 05/02/18 01:12 Carbon Dioxide 22 mEq/L (23-29) L 05/02/18 01:12 BUN 15 mg/dL (8-23) 05/02/18 01:12 Creatinine 0.98 mg/dL (0.70-1.30) 05/02/18 01:12 Est GFR ( Amer) > 60 (> 60) 05/02/18 01:12 Est GFR (Non-Af Amer) > 60 (> 60) 05/02/18 01:12 BUN/Creatinine Ratio 15 (6-26) 05/02/18 01:12 Glucose 160 mg/dL (70-105) H 05/02/18 01:12 Serum Osmolality 260 mOsm/kg (280-300) L 05/02/18 10:17 Calculated Osmolality 264 (280-300) L 05/02/18 01:12 Calcium 8.6 mg/dL (8.6-10.3) 05/02/18 01:12 Magnesium 2.1 mg/dL (1.6-2.6) 05/02/18 01:12 Total Bilirubin 0.4 mg/dL (0.3-1.0) 05/01/18 17:32 Direct Bilirubin 0.1 mg/dL (0.0-0.2) 05/01/18 17:32 Indirect Bilirubin 0.3 mg/dL (0.0-1.2) 05/01/18 17:32 AST 29 Units/L (13-39) 05/01/18 17:32 ALT 31 Units/L (7-52) 05/01/18 17:32 Alkaline Phosphatase 76 Units/L (34-104) 05/01/18 17:32 Ammonia 39 mcmol/L (16-53) 05/01/18 22:50 Troponin I < 0.03 ng/mL (< 0.04) 05/02/18 10:17 Serum Total Protein 7.1 g/dL (6.4-8.9) 05/01/18 17:32 Albumin 4.4 g/dL (3.5-5.7) 05/01/18 17:32 Globulin 2.7 g/dL (2.4-3.5) 05/01/18 17:32 Albumin/Globulin Ratio 1.6 (1.1-2.2) 05/01/18 17:32 Triglycerides 97 mg/dL (< 150) 05/02/18 01:12 Cholesterol 136 mg/dL (< 200) 05/02/18 01:12 LDL Cholesterol, Calc 71 mg/dL (0-99) 05/02/18 01:12 VLDL Cholesterol, Calc 19 mg/dL (< 31) 05/02/18 01:12 HDL Cholesterol 46 mg/dL (40-59) 05/02/18 01:12 Cholesterol/HDL Ratio 3.0 (0-4.9) 05/02/18 01:12 Vitamin B12 592 pg/mL (250-1100) 05/02/18 10:17 Folate 21.0 ng/mL (3.0-16.0) H 05/02/18 10:17 TSH 0.722 mcIU/mL (0.340-5.600) 05/01/18 17:32 Random Cortisol 15.3 mcg/dl 05/02/18 10:17 Urine Color Yellow (Yellow) 05/01/18 18:20 Urine Clarity Clear (Clear) 05/01/18 18:20 Urine pH 6.5 pH Units (5.0-8.0) 05/01/18 18:20 Ur Specific [place] 1.014 (1.010-1.025) 05/01/18 18:20 Urine Protein Negative mg/dL (Neg-Trace) 05/01/18 18:20 Urine Glucose (UA) Normal mg/dL (Normal) 05/01/18 18:20 Urine Ketones Negative mg/dL (Negative) 05/01/18 18:20 Urine Blood Negative (Negative) 05/01/18 18:20 Urine Nitrite Negative (Negative) 05/01/18 18:20 Urine Bilirubin Negative (Negative) 05/01/18 18:20 Urine Urobilinogen Normal mg/dL (Normal) 05/01/18 18:20 Ur Leukocyte Esterase Negative (Negative) 05/01/18 18:20 Urine Osmolality 87 mOsm/kg (300-1090) L 05/02/18 11:45 Urine Sodium 15.2 mEq/L 05/02/18 11:45 Urine Opiates Screen Negative ng/mL (Duczqn=835) 05/01/18 18:20 Ur Barbiturates Screen Negative ng/mL (Vrwwas=208) 05/01/18 18:20 Ur Phencyclidine Scrn Negative ng/mL (Cutoff=25) 05/01/18 18:20 Ur Amphetamines Screen Negative ng/mL (Tuvluj=8053) 05/01/18 18:20 U Benzodiazepines Scrn Negative ng/mL (Kdtxrb=452) 05/01/18 18:20 Urine Cocaine Screen Negative ng/mL (Cutoff= 300) 05/01/18 18:20 U Marijuana (THC) Screen Negative ng/mL (Cutoff = 50) 05/01/18 18:20 Ur Drug Screen Interp See Below 05/01/18 18:20 Chlamy pneumoniae PCR Not Detected (Not Detect) 05/01/18 23:30 Adenovirus (PCR) Not Detected (Not Detect) 05/01/18 23:30 B. pertussis DNA (PCR) Not Detected (Not Detect) 05/01/18 23:30 B.parapertussis DNA PCR Not Detected (Not Detect) 05/01/18 23:30 Coronavirus OC43 (PCR) Not Detected (Not Detect) 05/01/18 23:30 Coronavirus HKU1 (PCR) Not Detected (Not Detect) 05/01/18 23:30 Coronavirus 229E (PCR) Not Detected (Not Detect) 05/01/18 23:30 Coronavirus NL63 (PCR) Not Detected (Not Detect) 05/01/18 23:30 Human Metapneumovir PCR Not Detected (Not Detect) 05/01/18 23:30 Influenza A (H1) PCR Not Detected (Not Detect) 05/01/18 23:30 Influ A (H1N1/09) PCR Not Detected (Not Detect) 05/01/18 23:30 Influenza A (H3) PCR Not Detected (Not Detect) 05/01/18 23:30 Influenza A Untype (PCR) Not Detected (Not Detect) 05/01/18 23:30 Influenza Type B (PCR) Not Detected (Not Detect) 05/01/18 23:30 M.pneumoniae DNA (PCR) Not Detected (Not Detect) 05/01/18 23:30 Parainfluenza 1 (PCR) Not Detected (Not Detect) 05/01/18 23:30 Parainfluenza 2 (PCR) Not Detected (Not Detect) 05/01/18 23:30 Parainfluenza 3 (PCR) Not Detected (Not Detect) 05/01/18 23:30 Parainfluenza 4 (PCR) Not Detected (Not Detect) 05/01/18 23:30 RSV (PCR) Not Detected (Not Detect) 05/01/18 23:30 Entero/Rhino (PCR) Not Detected (Not Detect) 05/01/18 23:30 - Impressions Impressions Chest X-Ray 05/01/18 16:48 IMPRESSION: No radiographic evidence of acute cardiopulmonary process. D/ / 05/01/2018 17:10:59 Bob Torres MD / xuan Interpreting Provider: Bob Torres MD Head CT 05/01/18 17:26 IMPRESSION: No acute intracranial abnormality. D/ / Xenia Allsion MD / Xenia Allison MD Interpreting Provider: Xenia Allison MD Echocardiogram 05/02/18 08:00 Impressions: LVEF 60-65%. Normal LV chamber size, wall thickness and function. Mild left ventricular diastolic dysfunction. Normal right ventricular structure and function. No evidence of pulmonary hypertension. No significant valvular dysfunction. Left Ventricular Wall Motion: Rest Echo Findings All wall segments showed normal motion. Findings: Study Quality * Technically adequate exam. ECG Findings * Normal sinus rhythm. Left Ventricle * LVEF 60-65%. * Normal LV chamber size, wall thickness and function. * Mild left ventricular diastolic dysfunction. Right Ventricle * Normal right ventricular structure and function. Left Atrium * Normal left atrial size. Right Atrium * Normal right atrial size. Aortic Valve * Aortic valve not well visualized. * No aortic regurgitation. * No aortic stenosis. Mitral Valve * Normal mitral valve structure and function. * No mitral regurgitation. * No mitral stenosis. Tricuspid Valve * Normal tricuspid valve structure and function. * Trace tricuspid regurgitation. * No evidence of pulmonary hypertension. Pulmonic Valve * Pulmonic valve not well visualized. * No pulmonic regurgitation. Aorta * Normally sized aortic root. Pericardium * The pericardium appears normal. IVC * Normal IVC dimensions and inspiratory collapse. Pulmonary Artery * Pulmonary artery not well visualized. Brain MRI 05/02/18 21:56 IMPRESSION: 1. No acute intracranial abnormality. No acute infarction or medial temporal sclerosis. 2. Age-related parenchymal volume loss and mild chronic microvascular ischemic changes. D/ / 05/02/2018 08:16:02 Zane Xiao MD / xuan Interpreting Provider: Zane Xiao MD Consult Discharge Plan - Plan Referrals: Tamiko Loco, BEADWORKER [Primary Care Provider] - - Attending Attestation I examined this patient and my medical decision-making was reviewed with the Resident Physician. I agree with the documented findings, disposition and treatment plan as described except to the extent set forth below.
--- NOTE | 2018-05-02 15:56 | EEG/EMG/Oth Biometrics Report ---
EEG Procedure Report EEG Procedure: Routine EEG Procedure Note: This is a routine 21 channel digital EEG performed utilizing 10- 20 international electrode placement system. FINDINGS: Patient has a predominant waking background frequency that is average voltage 8 to 10 Hertz alpha activity in the posterior region, normal amplitude symmetrical over the both hemispheres reactive to eyes opening and closing record continued to show alpha activity intermixed with some theta off and on, no abnormal activity recorded, predominantly no evidence of any spike wave discharges or any lateralizing abnormalities, Photic stimulation did not produce any convulsive response. Intermittent EMG artifacts were noted. Stage II sleep was not achieved. Impression: Normal awake drowsy electroencephalogram. With significant electrode artifacts , No epileptiform discharges or any other paroxysmal activities noted. ( Please note that normal EEG does not exclude the diagnosis of seizures or epilepsy, clinical correlation is suggested)
[2018-05-02] MEDS: Mirtazapine 15 MG TABLET PO SCH (20:58)
--- NOTE | 2018-05-02 21:25 | Electrocardiograph Report ---
[address] [address] Test Date: 2018-05-01 Pat Name: Irais Denney Department: EXAM8 Room: 3B21 Gender: M [employer] Worker: : 1940 Requested By: Kristian Wang Order Number: [id number] Reading MD: Sarah Garay Measurements Intervals [place] Rate: 81 P: 61 TX: 173 QRS: 67 QRSD: 96 T: 56 QT: 361 QTc: 419 Interpretive Statements Sinus rhythm Electronically Signed On 05-02-2018 21:24:16 EDT by Sarah Garay
[2018-05-03] MEDS: traMADol 50 MG TABLET PO PRN ×2 (06:41→16:04)
[2018-05-03 06:53] LABS: Hematocrit 41.4 % (37.5-50.1); Hemoglobin 14.5 g/dL (12.9-16.9); Mean Corpuscular Hemoglobin 31.3 pg (28.0-33.3); Mean Corpuscular Volume 89.2 fL (83.0-100.0); Platelet Count 251 K/mcL (140-400); Red Blood Count 4.64 M/mcL (4.19-5.50); Red Cell Distribution Width 11.9 % (11.5-14.5)
[2018-05-03 07:11] LABS: BUN/Creatinine Ratio 10 (6-26); Blood Urea Nitrogen 11 mg/dL (8-23); Calcium 9.7 mg/dL (8.6-10.3); Carbon Dioxide 27 mEq/L (23-29); Chloride 97 mEq/L (98-107); Glucose 97 mg/dL (70-105); Osmolality,Calculated 277 (280-300); Sodium 134 mEq/L (136-145); eGFR For Non-African Americans > 60 (> 60)
--- NOTE | 2018-05-03 09:26 | Neurology Progress Note ---
<Celso Sanchez J - Last Filed: 05/03/18 14:48> Date of Encounter: 05/03/18 Time of Encounter: 09:23 Assessment and Plan (1) Altered mental status Current Visit: Yes Status: Acute Neurology consulted for evaluation of altered mental state. Episodic agitation, combativeness and altered mental state ongoing approximately 2 weeks. Encephalopathy likely multifactorial secondary to metabolic derangements and new medication changes; however, concerning for underlying psychological process as well. Patient repeating "the devil was making the act different " but is unable to elaborate further. Today during my assessment he is displaying some agitation and appears anxious. Neuro exam is nonfocal and nonlateralizing. MRI and CT imaging of brain negative for any acute abnormalities. EEG negative Urinalysis and a urine tox negative RIP negative We do not feel at this juncture that the patient's altered mental state is of a neurological etiology. Again, encephalopathy is multifactorial; will take time to resolve. Psychiatry following; recommendations appreciated Continue to avoid starting benzodiazepines or other sedating drugs to avoid worsening AMS Continue with sitter. Continue medical and supportive care Qualifiers: Altered mental status type: delirium Qualified Code(s): R41.0 - Disorientation, unspecified Subjective Principal diagnosis: Altered mental status, patient is encephalopathic Interval history: Seen and examined at bedside today. The patient is having persistent confusion with erratic behavior. At times he does appear to be agitated easily and somewhat aggressive and at other times he is weepy and concerned that he may not see his again. He reports that the devil is making him act different but he is unable to elaborate further. Overall, he remained stable and has not had any acute decline overnight. Objective - Constitutional Vitals: Temp Pulse Resp BP Pulse Ox 98.3 F 92 18 147/81 97 05/03/18 07:45 05/03/18 07:45 05/03/18 07:45 05/03/18 07:45 05/03/18 07:45 Exam: Examination: General Examination: *CONSTITUTIONAL: Alert and oriented x2, somewhat disoriented to situation and events surrounding admission. He is mildly distressed and agitated. *GENERAL APPEARANCE OF PATIENT elderly male, generally healthy, well groomed *EYES: pupils equal, round, reactive to light and accommodation, conjunctiva clear *CARDIOVASCULAR RRR, S1, S2, no peripheral edema, 2+ radial and dorsalis pedis pulses normal. Musculoskeletal: *GAIT AND STATION normal, with normal Romberg testing, no abnormalities such as broad base gait or spasticity *ASSESSMENT OF MUSCLE STRENGTH IN THE UPPER AND LOWER EXTREMITIES bilate ral deltoid, bicep, tricep, cutter plastics rolls strength, hip flexors ,anterior tibialis, dorsoflexion of the foot 5/5 *MUSCLE TONE IN THE UPPER AND LOWER EXTREMITIES normal. No abnormal movements, fasciculations or atrophy identified. *PSYCH: Distressed, agitated easily and somewhat anxious appearing Neurological: *ORIENTATION to person, time and place *RECURRENT AND REMOTE MEMORY intact *ATTENTION AND CONCENTRATION are normal *LANGUAGE FUNCTION no significant aphasia or dysarthia was noted. *FUND OF KNOWLEDGE aware of current events, past history, vocabulary *MENTAL attention span and concentration normal. *CN II optic fundi were normal, no papilledema noted. *CN III,IV, PERRLA extraocular eye movements were full, no nystagmus and no ptosis noted. *CN V shows normal sensation and jaw opens symmetrically. *CN VII shows normal facial movement symmetrically, upper and lower bilaterally. *CN VIII shows no significant hearing loss on exam *CN IX,,X palate elevated symmetrically *CN XI normal strength in the sternocleidomastoid muscles, symmetrical shoulder shrugging. *CN XII tongue protruded in the midline, with normal strength and movement. *SENSORY EXAMINATION light touch intact *REFLEXES: deep tendon reflexes were normal and symmetrical , grade 2/4 diffusely, no pathological reflexes were noted. *CEREBELLAR TESTING normal finger to nose, heel/knee/haynes *PAIN LEVEL 0 - VTE Documentation of Mechanical Device: Intermittent pneumatic compression device Results - Laboratory Findings CBC and BMP: 05/03/18 04:57 05/03/18 04:57 Abnormal lab findings: Abnormal lab results Monocytes # 1.4 K/mcL (0.0-1.3) H 05/01/18 17:32 Sodium 134 mEq/L (136-145) L 05/03/18 04:57 Chloride 97 mEq/L (98-107) L 05/03/18 04:57 Serum Osmolality 260 mOsm/kg (280-300) L 05/02/18 10:17 Calculated Osmolality 277 (280-300) L 05/03/18 04:57 Folate 21.0 ng/mL (3.0-16.0) H 05/02/18 10:17 Urine Osmolality 87 mOsm/kg (300-1090) L 05/02/18 11:45 Consult Discharge Plan - Plan Referrals: Tamiko Loco HIGHBALLER [Primary Care Provider] - <Otto Severino I - Last Filed: 05/03/18 15:50> Date of Encounter: 05/03/18 Assessment and Plan (1) Altered mental status Current Visit: Yes Status: Acute I have personally performed a face to face diagnostic evaluation, including HPI, EXAM, which is included in the Assesment and plan, which was discussed with Celso Sanchez CNP, I agree with the above outlined documentation. NO evidence of Stroke or seizures or infection, suggest adjustment of meds, Dementia with behavioral features, may get help from Psych Otto Severino MD. NeurologyI Qualifiers: Altered mental status type: delirium Qualified Code(s): R41.0 - Disorientation, unspecified Objective - Constitutional Vitals: Temp Pulse Resp BP Pulse Ox 98.7 F 88 16 135/75 95 05/03/18 15:19 05/03/18 15:19 05/03/18 15:19 05/03/18 15:19 05/03/18 15:19 Results - Laboratory Findings CBC and BMP: 05/03/18 04:57 05/03/18 04:57 Abnormal lab findings: Abnormal lab results Monocytes # 1.4 K/mcL (0.0-1.3) H 05/01/18 17:32 Sodium 134 mEq/L (136-145) L 05/03/18 04:57 Chloride 97 mEq/L (98-107) L 05/03/18 04:57 Serum Osmolality 260 mOsm/kg (280-300) L 05/02/18 10:17 Calculated Osmolality 277 (280-300) L 05/03/18 04:57 Folate 21.0 ng/mL (3.0-16.0) H 05/02/18 10:17 Urine Osmolality 87 mOsm/kg (300-1090) L 05/02/18 11:45
[2018-05-03] MEDS: Loratadine 10 MG TABLET PO SCH (10:03)
[2018-05-03] MEDS: Lisinopril 20 MG TABLET PO SCH (10:03)
[2018-05-03] MEDS: Aspirin 81 MG TAB.CHEW PO SCH (10:03)
[2018-05-03] MEDS: Finasteride 5 MG TABLET PO SCH (10:04)
[2018-05-03] MEDS: Fluticasone Propionate Nasal 50 MCG/SPRAY BOTTLE NS SCH (10:04)
[2018-05-03] MEDS: amLODIPine 5 MG TABLET PO SCH (10:04)
--- NOTE | 2018-05-03 10:15 | Internal Med Progress Note ---
Hospitalist Progress Note - Encounter Date of Encounter: 05/03/18 Time of Encounter: 10:13 - Subjective Interval History: Pt seen and examined in the room. He is still having on and off psychotic episodes with paranoid thoughts. His behaviour is calm and less violent. - Exam Vitals: Temp Pulse Resp BP Pulse Ox 98.3 F 92 18 147/81 97 05/03/18 07:45 05/03/18 07:45 05/03/18 07:45 05/03/18 07:45 05/03/18 07:45 Exam: Skin: Free of rash and discoloration. Eyes: Sclera is white. There is no discharge from eyes. ENMT: Oral/pharyngeal mucosa is normal in appearance. There is no discharge from nose or ears. Respiratory: Normal breath sounds with no crackles and wheezes bilaterally. CV: Heart is regular with no gallop or murmur. GI: Abdomen is flat and soft with no palpable mass or visceromegaly. : There is no tenderness in patient's flanks bilaterally. Neuro exam: He has good strength in upper and lower extremities. He has normal eye movements. Psychiatric: He has normal affect. His thought process is appropriate to the situation. - Assessment and Plan (1) Acute encephalopathy Current Visit: Yes Status: Acute Assessment and Plan: 05/02 Suspect that this is multifactorial however etiology remains unclear possible metabolic/ dementia- patient does have some hyponatremia and has had some new medication changes. Patient has not been sleeping which could be contributing -Infectious workup is been negative We will check thiamine B12 and folic acid check TSH MRI no acute intracranial abnormalities no acute infarcts or medial temporal sclerosis CT of head negative for any intracranial abnormalities Avoid benzos continue with Haldol and Seroquel as well as Aricept and Remeron Neurology and psychiatry have been consulted and appreciate recommendations EEG ordered per neurology. 05/03 Etiology remains unclear. Has mild hyponatremia upon arrival, but it has corrected, current Na 134. Normal TSH, random cortisol, Vit B12 and folate. Neuro exam no focal, negative MRI brain and CT for acute abnormalities. EEG no rmal. Neuro signed off. Hx of dementia. On Aricept. Symptoms likely has a psych component. On Romeron and Seroquel. Overall symptoms improving. (2) Suicidal ideation Current Visit: Yes Status: Acute Assessment and Plan: Presentation patient displayed acute suicidal ideations. 02/14 sitter. Currently patient denies any suicidal or homicidal thoughts -patient has been pleasant and cooperative psychiatry was consulted-recommending continue Seroquel 25 mg by mouth daily at bedtime and discontinuing medication once altered mental state has improved recommending continuing 1-1 sitter-due to waning delirium - recommending discontinuing 1-1 sitter once prolonged baseline is seen Avoid benzos recommending Haldol 5 mg by mouth every hours when necessary for severe agitation A (3) Behavior safety risk Current Visit: Yes Status: Acute Assessment and Plan: Patient is calm and cooperative today seen by psychiatry recommending continue Seroquel 25 mg daily at bedtime for calming Continue home dose of mirtazapine and denies a Prill Hold lorazepam and avoid benzos Haldol 5 mg orally every 8 hours as needed for severe agitation and combative behavior Continue with 02/14 observation Fall precautions (4) Chronic headaches Current Visit: Yes Status: Acute Assessment and Plan: Currently denies any headaches -MRI of brain showing no acute intracranial abnormality no acute infarction or medial temporal sclerosis CT of head completed in the ED and was found to be negative for any acute intracranial abnormality A (5) Discomfort in chest Current Visit: Yes Status: Resolved (6) SOB (shortness of breath) Current Visit: Yes Status: Resolved (7) History of appetite changes Current Visit: Yes Status: Acute (8) Insomnia Current Visit: Yes Status: Acute Assessment and Plan: Continue with Seroquel and sitter (9) HLD (hyperlipidemia) Current Visit: Yes Status: Chronic Assessment and Plan: Hx of chronic HLD. Lipid panel in a.m. labs. Continue pts. Zocor. (10) Dementia Current Visit: Yes Status: Chronic (11) Anxiety and depression Current Visit: No Status: Chronic Assessment and Plan: Hx of anxiety and depression. Added Seroquel 25 mg HS per Neurology recommendations for behavioral changes. Continue Romeron. (12) Weakness Current Visit: Yes Status: Acute Assessment and Plan: Consult PT and OT Falls precautions (13) Hyponatremia Current Visit: Yes Status: Acute Assessment and Plan: Sodium 125 today no neurological deficits noted no seizure activity noted. Nursing staff reports patient has been drinking large quantities of water-this may be contributing to his hyponatremia Fluid restriction 1.5 mL Monitor intake and output Urine Na and osmolarity are appropriate, ruled out SIADH. Na improving, currently at 134. (14) HTN (hypertension) Current Visit: Yes Status: Chronic Assessment and Plan: Hx of chronic HTN. Monitor pt. and VS. currently stable continue to monitor continue home medications (15) DVT prophylaxis Current Visit: Yes Status: Acute Assessment and Plan: Bilateral SCDs on LEs for DVT prophylaxis. - Time Spent with Patient Total time spent is greater than 50% in coordination of care (as documented) at patient's floor/unit and/or counseling patient: Greater than 35 minutes Plan of Care Discussed with: patient Internal Medicine: Result - Labs CBC & Chem 7: 05/03/18 04:57 05/03/18 04:57 Labs: Short CBC 05/03/18 Range/Units 04:57 WBC 8.4 (4.3-11.1) K/mcL Hgb 14.5 D (12.9-16.9) g/dL Hct 41.4 (37.5-50.1) % Plt Count 251 (140-400) K/mcL BMP 05/02/18 05/03/18 16:02 04:57 Sodium 128 L 134 L Potassium 4.0 Chloride 97 L Carbon Dioxide 27 BUN 11 Creatinine 1.07 Glucose 97 Calcium 9.7 Cardiac Enzymes 05/02/18 Range/Units 10:17 Troponin I < 0.03 (< 0.04) ng/mL - Impressions Impressions Chest X-Ray 05/01/18 16:48 IMPRESSION: No radiographic evidence of acute cardiopulmonary process. D/ / 05/01/2018 17:10:59 Bob Torres MD / xuan Interpreting Provider: Bob Torres MD Brain MRI 05/02/18 21:56 IMPRESSION: 1. No acute intracranial abnormality. No acute infarction or medial temporal sclerosis. 2. Age-related parenchymal volume loss and mild chronic microvascular ischemic changes. D/ / 05/02/2018 08:16:02 Zane Xiao MD / xuan Interpreting Provider: Zane Xiao MD - VTE Documentation of Mechanical Device: Intermittent pneumatic compression device Consult Discharge Plan - Plan Referrals: Tamiko Loco, LEATHER SCRAPER [Primary Care Provider] - (4) Chronic headaches Qualifiers: Headache type: unspecified Intractability: intractable Qualified Code(s): R51 - Headache (8) Insomnia Qualifiers: Insomnia type: other insomnia Qualified Code(s): G47.09 - Other insomnia (9) HLD (hyperlipidemia) Qualifiers: Hyperlipidemia type: pure hypercholesterolemia Qualified Code(s): E78.00 - Pure hypercholesterolemia, unspecified; E78.0 - Pure hypercholesterolemia (10) Dementia Qualifiers: Dementia type: unspecified type Dementia behavioral disturbance: with behavioral disturbance Qualified Code(s): F03.91 - Unspecified dementia with behavioral disturbance (14) HTN (hypertension) Qualifiers: Hypertension type: essential hypertension Qualified Code(s): I10 - Essential (primary) hypertension
[2018-05-03] MEDS: Acetaminophen 325 MG TABLET PO PRN (12:47)
--- NOTE | 2018-05-03 14:25 | Psychiatry Progress Note ---
Date of Encounter: 05/03/18 Time of Encounter: 09:45 Subjective Interval history: Patient was seen today in his room. Overnight reports state that he has been verbally aggressive at times but not combative or physically aggressive. Smita reports that he has been "irritable" due to being on a water restriction. However, she reports that he has not been "mean." They state that he has been tearful due to wanting his with him. When seeing the patient, he reports that he is "just fine." He was alert and oriented to self, city, hospital, and president. He was unable to tell this provider the date, but he understands that he needs to look at the wall for that date. He did not know the name of the hospital, but was able to look at the wall for the hospital name. He appeared logical and linear at this time. He is intermittently tearful, stating that he wants his . He reports they have been for 39 years. He reports depression due to his not being with him and explains that if she were, he would not be depressed. He reports "normal" anxiety at this time. He states that he is not sleeping well due to a headache. He denies issues with appetite. He denies SI, HI, AH, and VH. This provider later went up to the provider's room, as nursing staff alerted me to the presence of his and stepdaughter. They explain that he has been "talking nonstop" for a week. They report that 3 weeks ago, he made a large purchase of $4000 in covers for his gutters. He also reported that he has not been sleeping. He also explained that 3-4 weeks ago, the patient's son called asking for money. His son reported that he was clean, then ended up in [facility]. explains that the patient was extremely upset about this issue. They explain that he has had issues similar to this 4 times before. He explained during these times, he will talk a lot, make large purchases, and have thoughts of suicide. They report 1 hospitalization 40 years ago due to a "nervous breakdown" which appeared to be due to depression and social stressors. Patient's family reports that up to about a week ago, he was baseline. They report that his confusion due to dementia consists of not finding his car in a parking lot, losing his wedding ring, and losing his keys. 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 reports that he threw a cane at her, which is not normal for him. He reports that he is "a sweetheart." Stepdaughter also reports increased aggression with the patient. They explain that how he appears now is certainly not his baseline. This prov ider notices a difference in the patient from when he was seen this a.m., with him being increasingly confused and trying to leave the hospital. This provider does note irritation and slight aggression and the patient's voice when told he is not able to leave. He continues to tell this provider the same thing several times. Review of Systems Neurological: Reports: headache Psychiatric: Reports: depression, anxiety, abnormal sleep pattern, confusion, memory loss. Denies: suicidal ideation, change in appetite, homicidal ideation, auditory hallucinations, visual hallucinations Results - Vital Signs Vital Signs: Temp Pulse Resp BP Pulse Ox 98.1 F 88 18 138/78 99 05/03/18 11:20 05/03/18 11:20 05/03/18 11:20 05/03/18 11:20 05/03/18 11:20 - Drug Levels and Toxicology Drug Levels and Toxicology: None noted this a.m. - Labs Labs: Laboratory Results - last 24 hr 05/02/18 05/03/18 05/03/18 16:02 04:57 04:57 WBC 8.4 RBC 4.64 Hgb 14.5 D Hct 41.4 MCV 89.2 MCH 31.3 MCHC 35.0 RDW 11.9 Plt Count 251 MPV 10.0 Sodium 128 L 134 L Potassium 4.0 Chloride 97 L Carbon Dioxide 27 BUN 11 Creatinine 1.07 Est GFR ( Amer) > 60 Est GFR (Non-Af Amer) > 60 BUN/Creatinine Ratio 10 Glucose 97 Calculated Osmolality 277 L Calcium 9.7 - Impressions ITS Impressions Chest X-Ray 05/01/18 16:48 IMPRESSION: No radiographic evidence of acute cardiopulmonary process. D/ / 05/01/2018 17:10:59 Bob Torres MD / xuan Interpreting Provider: Bob Torres MD Head CT 05/01/18 17:26 IMPRESSION: No acute intracranial abnormality. D/ / Xenia Allison MD / Xenia Allison MD Interpreting Provider: Xenia Allison MD Echocardiogram 05/02/18 08:00 Impressions: LVEF 60-65%. Normal LV chamber size, wall thickness and function. Mild left ventricular diastolic dysfunction. Normal right ventricular structure and function. No evidence of pulmonary hypertension. No significant valvular dysfunction. Left Ventricular Wall Motion: Rest Echo Findings All wall segments showed normal motion. Findings: Study Quality * Technically adequate exam. ECG Findings * Normal sinus rhythm. Left Ventricle * LVEF 60-65%. * Normal LV chamber size, wall thickness and function. * Mild left ventricular diastolic dysfunction. Right Ventricle * Normal right ventricular structure and function. Left Atrium * Normal left atrial size. Right Atrium * Normal right atrial size. Aortic Valve * Aortic valve not well visualized. * No aortic regurgitation. * No aortic stenosis. Mitral Valve * Normal mitral valve structure and function. * No mitral regurgitation. * No mitral stenosis. Tricuspid Valve * Normal tricuspid valve structure and function. * Trace tricuspid regurgitation. * No evidence of pulmonary hypertension. Pulmonic Valve * Pulmonic valve not well visualized. * No pulmonic regurgitation. Aorta * Normally sized aortic root. Pericardium * The pericardium appears normal. IVC * Normal IVC dimensions and inspiratory collapse. Pulmonary Artery * Pulmonary artery not well visualized. Brain MRI 05/02/18 21:56 IMPRESSION: 1. No acute intracranial abnormality. No acute infarction or medial temporal sclerosis. 2. Age-related parenchymal volume loss and mild chronic microvascular ischemic changes. D/ / 05/02/2018 08:16:02 Zane Xiao MD / xuan Interpreting Provider: Zane Xiao MD Assessment and Plan (1) Altered mental status Current visit: Yes Status: Acute Plan: Continue hospitalization, Encourage participation in unit milieu, Monitor sleep, Monitor appetite Additional Plan: -Due to this recent hyponatremia, the abrupt nature of the mental status change, and apparent waxing and waning of his confusion, this altered mental status appears to be more of a delirium process. Although his hyponatremia has been corrected, it may take several weeks for his mentation to return to baseline due to his lowered cognitive reserve. -Recommend continuing quetiapine 25 mg by mouth daily at bedtime for calming, discontinuing medication once altered mental status has improved -Recommend continuing home doses of mirtazapine and donepezil -Recommend continuing the hold home dose of lorazepam, as this can further confuse the patient -Recommend starting haloperidol 5 mg by mouth every 8 hours when necessary if there is any severe agitation or combative behavior -Recommend against starting benzodiazepines or other sedating drugs, as it can make the patient's altered mental status worse -Although patient has not been combative or has had suicidal actions or thoughts during this admission, there is concern with this provider after seeing the patient this afternoon for the need of constant redirection, as the patient is continually attempting to leave. It is recommended that a one-to-one sitter be continued on this patient at this time -Will continue to monitor Risks, benefits, side effects, alternatives discussed w/pt: No (No changes made) Patient agreeable to treatment: Yes Qualifiers: Altered mental status type: delirium Qualified Code(s): R41.0 - Disorientation, unspecified Consult Discharge Plan - Plan Referrals: Tamiko Loco, MARKETING UNDERWRITER [Primary Care Provider] - - Attending Attestation I examined this patient and my medical decision-making was reviewed with the Resident Physician. I agree with the documented findings, disposition and treatment plan as described except to the extent set forth below. Resident spoke with family as outlined. I examined patient. If patient doesn't agree to recommended ECF may need to pursue guardianship options. Psychiatry Exam - Constitutional Vitals: Temp Pulse Resp BP Pulse Ox 98.1 F 88 18 138/78 99 05/03/18 11:20 05/03/18 11:20 05/03/18 11:20 05/03/18 11:20 05/03/18 11:20 General appearance: age & developmentally appropriate, well-groomed, well- nourished, average - Musculoskeletal Gait: unsteady (Mildly so, needing a cane) Station: relaxed Strength & Tone: normal for patient (Grossly) - Psychiatric Patient Orientation: Yes Person, No Time (Due to look up on the board for the date but could not tell even the year to this provider), Yes Place ([facility] and in [place] but did not know the name of the [facility]), Yes Circumstance Level of alertness: Alert, Follows commands Behavior: cooperative, tearful Psychomotor activity: Slowed (Mildly so) Eye Contact: Maintains Eye Contact Mood Description: Anxious Patient description of mood: "Just fine" Affect description: constricted Speech Volume: Soft/Quiet Speech pattern: normal rate, normal tone, fluent, spontaneous, appropriate, clear, coherent, limited (Decreased prosody) Language & Vocabulary: consistent with education Thought Process: Logical (Earlier in the day), Linear (Earlier in the day), Goal Oriented (Earlier in the day), Tangential (Later in the day) Thought Content: No Suicidal ideation, No Homicidal ideation, No Overt delusions Perceptual Disturbances: No Reacting to internal stimuli, No Auditory hallucinations, No Visual hallucinations Attention Span Ability: Capable of Focused Attention Memory Description: Grossly Intact Patient Reliability: Questionable Historian Fund of knowledge: Yes aware of current events Intelligence Estimate: Average Judgment: Poor Insight: Minimal
[2018-05-03] MEDS: Mirtazapine 15 MG TABLET PO SCH (20:04)
[2018-05-04] MEDS ORDERED: Haloperidol Lactate 5 MG/ML VIAL IVP PRN (01:02)
[2018-05-04] MEDS ORDERED: Haloperidol Lactate 5 MG/ML VIAL IM PRN (01:05)
[2018-05-04 06:18] LABS: Hematocrit 41.6 % (37.5-50.1); Hemoglobin 14.8 g/dL (12.9-16.9); Mean Corpuscular HGB Conc 35.6 g/dL (31.6-35.5); Mean Corpuscular Hemoglobin 31.6 pg (28.0-33.3); Mean Corpuscular Volume 88.7 fL (83.0-100.0); Mean Platelet Volume 9.2 fL (9.4-12.4); Platelet Count 262 K/mcL (140-400); Red Blood Count 4.69 M/mcL (4.19-5.50)
[2018-05-04 06:36] LABS: BUN/Creatinine Ratio 11 (6-26); Blood Urea Nitrogen 12 mg/dL (8-23); Calcium 9.8 mg/dL (8.6-10.3); Carbon Dioxide 25 mEq/L (23-29); Chloride 98 mEq/L (98-107); Glucose 128 mg/dL (70-105); Osmolality,Calculated 277 (280-300); Potassium 4.3 mEq/L (3.5-5.1); Sodium 133 mEq/L (136-145); eGFR For Non-African Americans > 60 (> 60)
[2018-05-04] MEDS: Aspirin 81 MG TAB.CHEW PO SCH (08:21)
[2018-05-04] MEDS: Loratadine 10 MG TABLET PO SCH (08:21)
[2018-05-04] MEDS: Finasteride 5 MG TABLET PO SCH (08:21)
[2018-05-04] MEDS: amLODIPine 5 MG TABLET PO SCH (08:21)
[2018-05-04] MEDS: Lisinopril 20 MG TABLET PO SCH (08:21)
[2018-05-04] MEDS: Fluticasone Propionate Nasal 50 MCG/SPRAY BOTTLE NS SCH (08:29)
--- NOTE | 2018-05-04 10:25 | Neurology Progress Note ---
<Celso Sanchez - Last Filed: 05/04/18 15:45> Date of Encounter: 05/04/18 Time of Encounter: 15:45 Assessment and Plan (1) Altered mental status Current Visit: Yes Status: Acute Neuro consulted for eval of AMS. Episodic agitation, combativeness and altered mental state ongoing approximately 2 weeks. Has also been making large purchases unexpectedly, has had a altered sleep/wake cycle. Etiology of altered mental state encephalopathic versus acute psychosis or some combination of both. Today, neuro exam continues to be nonfocal, remains somewhat easily agitated but is overall cooperative and not combative. Symptoms do not appear to be of a primary neurologic cause. MRI and CT imaging of brain negative for acute abnormalities. EEG normal. Psychiatry following in consultation, recommendations appreciated. Agree with continuing to avoid benzodiazepines or other sedating meds to avoid worsening AMS. Continue with sitter. Recommend medical and supportive care. We will likely take time to improve. Neurology will sign off at this time; please reconsult should any further need arise. Qualifiers: Altered mental status type: delirium Qualified Code(s): R41.0 - Disorientation, unspecified Subjective Principal diagnosis: Altered mental status, patient is encephalopathic Interval history: Seen and examined at bedside today. Confusion and erratic behavior are consistent, patient remains somewhat confused regarding situational events leading up to admission. He does admit to not sleeping well and recently making large purchases. Additionally, he continues to have this pressure speech presentation and somewhat easily agitated at times. Objective - Constitutional Vitals: Temp Pulse Resp BP Pulse Ox 98.1 F 91 16 130/81 93 05/04/18 08:04 05/04/18 08:04 05/04/18 08:04 05/04/18 08:04 05/04/18 08:20 Exam: Examination: General Examination: *CONSTITUTIONAL: Alert and oriented x2, somewhat disoriented to situation and events surrounding admission. Continues to be distressed and somewhat agitated. At times he is weepy. *GENERAL APPEARANCE OF PATIENT elderly male, generally healthy, well groomed *EYES: pupils equal, round, reactive to light and accommodation, conjunctiva clear *CARDIOVASCULAR RRR, S1, S2, no peripheral edema, 2+ radial and dorsalis pedis pulses normal. Musculoskeletal: *GAIT AND STATION normal, with normal Romberg testing, no abnormalities such as broad base gait or spasticity *ASSESSMENT OF MUSCLE STRENGTH IN THE UPPER AND LOWER EXTREMITIES bilateral deltoid, bicep, tricep, clinical nurse strength, hip flexors ,anterior tibialis, dorsoflexion of the foot 5/5 *MUSCLE TONE IN THE UPPER AND LOWER EXTREMITIES normal. No abnormal movements, fasciculations or atrophy identified. *PSYCH: Distressed, agitated easily and somewhat anxious appearing Neurological: *ORIENTATION to person, time and place *RECURRENT AND REMOTE MEMORY intact *ATTENTION AND CONCENTRATION are normal *LANGUAGE FUNCTION no significant aphasia or dysarthia was noted. Pressured speech pattern *FUND OF KNOWLEDGE aware of current events, past history, vocabulary *MENTAL attention span and concentration normal. *CN II optic fundi were normal, no papilledema noted. *CN III,IV, PERRLA extraocular eye movements were full, no nystagmus and no ptosis noted. *CN V shows normal sensation and jaw opens symmetrically. *CN VII shows normal facial movement symmetrically, upper and lower bilaterally. *CN VIII shows no significant hearing loss on exam *CN IX,,X palate elevated symmetrically *CN XI normal strength in the sternocleidomastoid muscles, symmetrical shoulder shrugging. *CN XII tongue protruded in the midline, with normal strength and movement. *SENSORY EXAMINATION light touch intact *REFLEXES: deep tendon reflexes were normal and symmetrical , grade 2/4 diffusely, no pathological reflexes were noted. *CEREBELLAR TESTING normal finger to nose, heel/knee/haynes *PAIN LEVEL 0 - VTE Documentation of Mechanical Device: Intermittent pneumatic compression device Results - Laboratory Findings CBC and BMP: 05/04/18 05:55 05/04/18 05:55 Abnormal lab findings: Abnormal lab results MCHC 35.6 g/dL (31.6-35.5) H 05/04/18 05:55 MPV 9.2 fL (9.4-12.4) L 05/04/18 05:55 Monocytes # 1.4 K/mcL (0.0-1.3) H 05/01/18 17:32 Sodium 133 mEq/L (136-145) L 05/04/18 05:55 Glucose 128 mg/dL (70-105) H 05/04/18 05:55 Serum Osmolality 260 mOsm/kg (280-300) L 05/02/18 10:17 Calculated Osmolality 277 (280-300) L 05/04/18 05:55 Folate 21.0 ng/mL (3.0-16.0) H 05/02/18 10:17 Urine Osmolality 87 mOsm/kg (300-1090) L 05/02/18 11:45 Consult Discharge Plan - Plan Referrals: Tamiko Loco CNP [Primary Care Provider] - Prescriptions: Quetiapine Fumarate [Seroquel] 25 mg PO HS #30 tablet <Otto Severino I - Last Filed: 05/04/18 16:30> Date of Encounter: 05/04/18 Assessment and Plan (1) Altered mental status Current Visit: Yes Status: Acute I have personally performed a face to face diagnostic evaluation, including HPI, EXAM, which is included in the Assesment and plan, which was discussed with Celso Sanchez CNP, I agree with the above outlined documentation. Otto Severino MD. NeurologyI Qualifiers: Altered mental status type: delirium Qualified Code(s): R41.0 - Disorientation, unspecified Objective - Constitutional Vitals: Temp Pulse Resp BP Pulse Ox 98.9 F 97 14 114/71 94 05/04/18 15:31 05/04/18 15:31 05/04/18 15:31 05/04/18 15:31 05/04/18 15:31 Results - Laboratory Findings CBC and BMP: 05/04/18 05:55 05/04/18 05:55 Abnormal lab findings: Abnormal lab results MCHC 35.6 g/dL (31.6-35.5) H 05/04/18 05:55 MPV 9.2 fL (9.4-12.4) L 05/04/18 05:55 Monocytes # 1.4 K/mcL (0.0-1.3) H 05/01/18 17:32 Sodium 133 mEq/L (136-145) L 05/04/18 05:55 Glucose 128 mg/dL (70-105) H 05/04/18 05:55 Serum Osmolality 260 mOsm/kg (280-300) L 05/02/18 10:17 Calculated Osmolality 277 (280-300) L 05/04/18 05:55 Folate 21.0 ng/mL (3.0-16.0) H 05/02/18 10:17 Urine Osmolality 87 mOsm/kg (300-1090) L 05/02/18 11:45
[2018-05-04] MEDS: Acetaminophen 325 MG TABLET PO PRN (12:21)
--- NOTE | 2018-05-04 13:29 | Discharge Summary ---
- NOTES TO OUTPATIENT PROVIDER Notes to Outpatient Provider: f/u with PCP and psych as needed. Orders not resulted at time of discharge: Pending orders 05/01/18 22:45 Culture,Blood [BC] Stat 05/02/18 10:17 Vitamin B1 (Thiamine) Whole Bl Routine Date of Encounter: 05/05/18 Time of Encounter: 13:27 - Discharge Diagnosis (1) Acute encephalopathy Priority: Primary Status: Acute (2) Suicidal ideation Priority: Primary Status: Acute (3) Behavior safety risk Priority: Primary Status: Acute (4) Chronic headaches Priority: Secondary Status: Chronic Qualifiers: Headache type: unspecified Intractability: intractable Qualified Code(s): R51 - Headache (5) Discomfort in chest Priority: Primary Status: Resolved (6) SOB (shortness of breath) Priority: Primary Status: Resolved (7) History of appetite changes Priority: Secondary Status: Resolved (8) Insomnia Priority: Primary Status: Acute Qualifiers: Insomnia type: other insomnia Qualified Code(s): G47.09 - Other insomnia (9) HLD (hyperlipidemia) Priority: Secondary Status: Chronic Qualifiers: Hyperlipidemia type: pure hypercholesterolemia Qualified Code(s): E78.00 - Pure hypercholesterolemia, unspecified; E78.0 - Pure hypercholesterolemia (10) Dementia Priority: Secondary Status: Chronic Qualifiers: Dementia type: unspecified type Dementia behavioral disturbance: with behavioral disturbance Qualified Code(s): F03.91 - Unspecified dementia with behavioral disturbance (11) Anxiety and depression Priority: Secondary Status: Chronic (12) Weakness Priority: Primary Status: Acute (13) Hyponatremia Priority: Primary Status: Resolved (14) HTN (hypertension) Priority: Secondary Status: Chronic Qualifiers: Hypertension type: essential hypertension Qualified Code(s): I10 - Essential (primary) hypertension (15) DVT prophylaxis Priority: Primary Status: Acute Hospital course: Mr. Denney is a 77 year old male w/PMH of HTN, HLD, urinary retention, mild dementia, anxiety and depression presents from the ED w/CC of increased anger and aggressive behavior over the past week. Pt. states he has had a headache for several weeks. Pt. also reports mild chest discomfort and has a hx of anxiety. Pts. states that the pt. has not been sleeping well and has not had any sleep for several days. Pt. was admitted on 04/27 and discharged on 04/29. stated that she found the pt. on the bathroom floor on 04/27 and he was incontinent of stool and could not use his legs. denies pt. hit his head. No neuro work-up completed. Pt. also reports he is very weak when he walks to the mailbox and back up their hill. Reports SOB but denies home O2 use. Pts. also states that pts. appetite has not been good and he is not eating well. Pt. denies recent cardiac w/u, recent illness, fever, chills, nausea, vomiting, changes in vision, unusual bleeding, abdominal pain, diarrhea, constipation, one-sided weakness, numbness, tingling, facial droop, slurred speech, dizziness, lightheadedness, pre-syncope, or syncope. Patient was admitted for further evaluation and management. He underwent extensive workup including labs, EEG, echocardiogram, and imaging studies. Labs showed mild hyponatremia with sodium 121. He received IV fluid, which gradually corrected sodium to 134. TSH, free T4, random cortisol all normal. An MRI and CT were negative for acute abnormalities. Neurology was consulted, and EEG was ordered which showed no epileptic waveforms. Psychiatry was consulted, patient was started on Seroquel 25 mg every night. His home medication Remeron and Aricept were continued. Haldol was ordered as needed for agitation. He remained agitated, confused, and aggressive at times, which required intermittent restraints and bedside sitter. After carefully reviewing all the test results and a discussion with all the specialties, with THE patient's symptoms are typical for depression and silvano. To transfer to a facility with capability of taking care of mood disorder is an optimal choice. campaign worker and lining caser have been talking to the family and a contact relevant facilities. Patient is discharged to [facility]. He was instructed to continue follow-up with PCP and the psychiatry as needed. Discharge discussed with: patient, family Time spent discussing smoking cessation with patient: more than 10 minutes - Time Spent with Patient Total time spent providing and/or coordinating discharge services: Time spent: Greater than 30 minutes - Discharge Medications Prescriptions: New Quetiapine Fumarate [Seroquel] 25 mg PO HS #30 tablet Continue Mirtazapine [Remeron] 15 mg PO HS Lisinopril [Zestril] 20 mg PO QAM Finasteride [Proscar] 5 mg PO QAM Pravastatin Sodium 10 mg PO HS Aspirin 81 mg PO DAILY Polyethylene Glycol 3350 [MiraLAX] 17 gm PO DAILY #30 powd.pack amLODIPine [Norvasc] 5 mg PO DAILY Donepezil [Aricept] 5 mg PO HS Fluticasone Propionate Nasal [Flonase] 100 mcg NS DAILY Loratadine [Allergy Relief] 10 mg PO DAILY LORazepam [Ativan] 0.5 - 1 mg PO HS PRN PRN Reason: Sleep Home Medications: Aspirin 81 mg PO DAILY 10/09/14 [History] Finasteride [Proscar] 5 mg PO QAM 10/09/14 [History] Lisinopril [Zestril] 20 mg PO QAM 10/09/14 [History] Mirtazapine [Remeron] 15 mg PO HS 10/09/14 [History] Pravastatin Sodium 10 mg PO HS 10/09/14 [History] Polyethylene Glycol 3350 [MiraLAX] 17 gm PO DAILY #30 powd.pack 04/29/18 [Rx] Donepezil [Aricept] 5 mg PO HS 05/01/18 [History] Fluticasone Propionate Nasal [Flonase] 100 mcg NS DAILY 05/01/18 [History] LORazepam [Ativan] 0.5 - 1 mg PO HS PRN 05/01/18 [History] Loratadine [Allergy Relief] 10 mg PO DAILY 05/01/18 [History] amLODIPine [Norvasc] 5 mg PO DAILY 05/01/18 [History] Quetiapine Fumarate [Seroquel] 25 mg PO HS #30 tablet 05/04/18 [Rx] Allergies/Adverse Reactions: Allergy/AdvReac Type Severity Reaction Status Date / Time No Known Allergies Allergy Verified 04/27/18 04:53 Date of admission: 05/02/18 16:08 Primary care physician: Tamiko Loco CNP Consults: 05/01/18 21:58 Consult to Neurology [CONS] Routine Consulting Provider: Neurology [facility] Reason for Consult: Patient is experiencing recent behavioral changes w/increased anger and aggression. CT of the head unremarkable. Pt. reports headache for several weeks. 04/27 found the pt. in the bathroom on the floor at 4 a.m. incontinent of stool and unable to move leg. denies pt. hit his head. Pt. brought to ED and discharged on 04/29. reports aggressive behavior today w/pt. trying to strike her w/cane. On exam, pt. is calm and has minor difficulty w/details. Pt. also reports worsening weakness over the past several weeks w/ambulation. Echocardiogram ordered to assess LVEF. MRI of the head/brain ordered. Call Completed: Yes 05/01/18 22:13 Consult to Psychiatry [CONS] Routine Consulting Provider: Psychiat[facility] Reason consult: Agitation 05/01/18 22:15 Consult to Nutrition [CONS] Routine Comment: CHOCOLATE BOOST Consulting Provider: NUTRITION Reason for Dietary Consult: PO Supplementation 05/01/18 22:27 Consult to Manager Monitoring [CONS] Routine Reason for SW Consult: Please assess patient for possible home needs for post-discharge planning. 05/02/18 12:26 Consult to Interpret Exam [CONS] Routine Consulting Provider: Otto Severino I Consult to Interpret Exam: Interpret EEG 05/02/18 15:42 Consult to Physical Therapy [CONS] Routine Comment: Evaluate, develop and implement POC Reason for Consult: Falls Does patient have active BEDREST order?: No Is patient medically & hemodynamically stable?: Yes Patient assessed for mobility or mobilized this visit?: Yes 05/02/18 15:43 Consult to Physical Therapy [CONS] Routine Comment: Evaluate, develop and implement POC Reason for Consult: WEAKNESS, POSSIBLE PLACEMENT Does patient have active BEDREST order?: No Is patient medically & hemodynamically stable?: Yes Anticipated date of discharge: 05/04/18 - Constitutional Vitals: Temp Pulse Resp BP Pulse Ox 98.1 F 91 16 130/81 93 05/04/18 08:04 05/04/18 08:04 05/04/18 08:04 05/04/18 08:04 05/04/18 08:20 General appearance: Present: A&O X 3 Exam: Skin: Free of rash and discoloration. Eyes: Sclera is white. There is no discharge from eyes. ENMT: Oral/pharyngeal mucosa is normal in appearance. There is no discharge from nose or ears. Respiratory: Normal breath sounds with no crackles and wheezes bilaterally. CV: Heart is regular with no gallop or murmur. GI: Abdomen is flat and soft with no palpable mass or visceromegaly. : There is no tenderness in patient's flanks bilaterally. Neuro exam: He has good strength in upper and lower extremities. He has normal eye movements. Psychiatric: He has normal affect. His thought process is appropriate to the situation. - Patient Status Disposition: Transfer Psychiatric Hosp Condition: Good Functional capacity at discharge: uses cane/walker Overall status at discharge: patient is progressing back to baseline - Discharge Instructions Follow Up With: Tamiko Loco, INSURANCE ADJUSTOR [Primary Care Provider] - (We are unable make appointment. Please call and make a follow up appointment within 1 week of discharge. Thank You. ) - Diet and Activity Activity: increase activity as tolerated Diet: advance to your usual diet - VTE Documentation of Mechanical Device: Intermittent pneumatic compression device
--- NOTE | 2018-05-04 13:49 | Physician Discharge Referral ---
ExtendedCare Referral Info Provider in Charge after Transfer: PCP Institutional Level of Care: Skilled - Diagnosis (1) Acute encephalopathy Priority: Primary Status: Acute (2) Suicidal ideation Priority: Primary Status: Acute (3) Behavior safety risk Priority: Primary Status: Acute (4) Chronic headaches Priority: Secondary Status: Chronic (5) Discomfort in chest Priority: Primary Status: Resolved (6) SOB (shortness of breath) Priority: Primary Status: Resolved (7) History of appetite changes Priority: Secondary Status: Acute (8) Insomnia Priority: Primary Status: Acute (9) HLD (hyperlipidemia) Priority: Secondary Status: Chronic (10) Dementia Priority: Secondary Status: Chronic (11) Anxiety and depression Priority: Primary Status: Chronic (12) Weakness Priority: Primary Status: Acute (13) Hyponatremia Priority: Primary Status: Acute (14) HTN (hypertension) Priority: Secondary Status: Chronic (15) DVT prophylaxis Priority: Primary Status: Acute Prognosis: Fair Aware of Diagnosis: Patient, Family Aware of Prognosis: Patient, Family - Transfer Medications Prescriptions: Quetiapine Fumarate [Seroquel] 25 mg PO HS #30 tablet Home Medications: Aspirin 81 mg PO DAILY 10/09/14 [History] Finasteride [Proscar] 5 mg PO QAM 10/09/14 [History] Lisinopril [Zestril] 20 mg PO QAM 10/09/14 [History] Mirtazapine [Remeron] 15 mg PO HS 10/09/14 [History] Pravastatin Sodium 10 mg PO HS 10/09/14 [History] Polyethylene Glycol 3350 [MiraLAX] 17 gm PO DAILY #30 powd.pack 04/29/18 [Rx] Donepezil [Aricept] 5 mg PO HS 05/01/18 [History] Fluticasone Propionate Nasal [Flonase] 100 mcg NS DAILY 05/01/18 [History] LORazepam [Ativan] 0.5 - 1 mg PO HS PRN 05/01/18 [History] Loratadine [Allergy Relief] 10 mg PO DAILY 05/01/18 [History] amLODIPine [Norvasc] 5 mg PO DAILY 05/01/18 [History] Quetiapine Fumarate [Seroquel] 25 mg PO HS #30 tablet 05/04/18 [Rx] Allergies/Adverse Reactions: Allergy/AdvReac Type Severity Reaction Status Date / Time No Known Allergies Allergy Verified 04/27/18 04:53 - Respiratory Orders Smoking Cessation: Smoking cessation has been advised. For more information, call the [place] Tobacco Quit Line at 7-871-GKDJ-NOW. - Advance Directives Code Status: Full Code CERTIFICATION: I certify that the transfer of the above named patient to an Extended Care Facility is necessary for the continuing treatment of the diagnosis listed. The above information is true and accurate reflection of patient's current condition. Confidential - Redisclosure prohibited without a patient's written consent.
[2018-05-04] MEDS: traMADol 50 MG TABLET PO PRN (16:17)
--- NOTE | 2018-05-04 16:43 | Internal Med Progress Note ---
Hospitalist Progress Note - Encounter Date of Encounter: 05/04/18 Time of Encounter: 16:39 - Subjective Interval History: Pt seen and examined in the room. He is calm but not coherent. still needs sitter and restraints. - Exam Vitals: Temp Pulse Resp BP Pulse Ox 98.9 F 97 14 114/71 94 05/04/18 15:31 05/04/18 15:31 05/04/18 15:31 05/04/18 15:31 05/04/18 15:31 Exam: Skin: Free of rash and discoloration. Eyes: Sclera is white. There is no discharge from eyes. ENMT: Oral/pharyngeal mucosa is normal in appearance. There is no discharge from nose or ears. Respiratory: Normal breath sounds with no crackles and wheezes bilaterally. CV: Heart is regular with no gallop or murmur. GI: Abdomen is flat and soft with no palpable mass or visceromegaly. : There is no tenderness in patient's flanks bilaterally. Neuro exam: He has good strength in upper and lower extremities. He has normal eye movements. Psychiatric: He has normal affect. His thought process is appropriate to the situation. - Assessment and Plan (1) Acute encephalopathy Current Visit: Yes Status: Acute Assessment and Plan: 05/02 Suspect that this is multifactorial however etiology remains unclear possible metabolic/ dementia- patient does have some hyponatremia and has had some new medication changes. Patient has not been sleeping which could be contributing -Infectious workup is been negative We will check thiamine B12 and folic acid check TSH MRI no acute intracranial abnormalities no acute infarcts or medial temporal sclerosis CT of head negative for any intracranial abnormalities Avoid benzos continue with Haldol and Seroquel as well as Aricept and Remeron Neurology and psychiatry have been consulted and appreciate recommendations EEG ordered per neurology. 05/03 Etiology remains unclear. Has mild hyponatremia upon arrival, but it has corrected, current Na 134. Normal TSH, random cortisol, Vit B12 and folate. Neuro exam no focal, negative MRI brain and CT for acute abnormalities. EEG normal. Neuro signed off. Hx of dementia. On Aricept. Symptoms likely has a psych component. On Romeron and Seroquel. Overall symptoms improving. 05/04 wax and wane agitation and confusion. Will transfer to [facility] for further psych treatment. (2) Suicidal ideation Current Visit: Yes Status: Acute Assessment and Plan: Presentation patient displayed acute suicidal ideations. 02/14 sitter. Currently patient denies any suicidal or homicidal thoughts -patient has been pleasant and cooperative psychiatry was consulted-recommending continue Seroquel 25 mg by mouth daily at bedtime and discontinuing medication once altered mental state has improved recommending continuing 1-1 sitter-due to waning delirium - recommending discontinuing 1-1 sitter once prolonged baseline is seen Avoid benzos recommending Haldol 5 mg by mouth every hours when necessary for severe agitation (3) Behavior safety risk Current Visit: Yes Status: Acute Assessment and Plan: Patient is calm and cooperative today seen by psychiatry recommending continue Seroquel 25 mg daily at bedtime for calming Continue home dose of mirtazapine and denies a Prill Hold lorazepam and avoid benzos Haldol 5 mg orally every 8 hours as needed for severe agitation and combative behavior Continue with 02/14 observation Fall precautions (4) Chronic headaches Current Visit: Yes Status: Chronic Assessment and Plan: Currently denies any headaches -MRI of brain showing no acute intracranial ab normality no acute infarction or medial temporal sclerosis CT of head completed in the ED and was found to be negative for any acute intracranial abnormality (5) Discomfort in chest Current Visit: Yes Status: Resolved (6) SOB (shortness of breath) Current Visit: Yes Status: Resolved (7) History of appetite changes Current Visit: Yes Status: Resolved (8) Insomnia Current Visit: Yes Status: Acute Assessment and Plan: Continue with Seroquel and sitter (9) HLD (hyperlipidemia) Current Visit: Yes Status: Chronic Assessment and Plan: Hx of chronic HLD. Lipid panel in a.m. labs. Continue pts. Zocor. (10) Dementia Current Visit: Yes Status: Chronic Assessment and Plan: Hx of dementia. Continue pts. Aricept w/caution d/t risk of QT prolongation. Cardiac monitoring ordered. (11) Anxiety and depression Current Visit: No Status: Chronic Assessment and Plan: Hx of anxiety and depression. Added Seroquel 25 mg HS per Neurology recommendations for behavioral changes. Continue Romeron. (12) Weakness Current Visit: Yes Status: Acute Assessment and Plan: Consult PT and OT Falls precautions (13) Hyponatremia Current Visit: Yes Status: Resolved (14) HTN (hypertension) Current Visit: Yes Status: Chronic Assessment and Plan: Hx of chronic HTN. Monitor pt. and VS. currently stable continue to monitor continue home medications (15) DVT prophylaxis Current Visit: Yes Status: Acute Assessment and Plan: Bilateral SCDs on LEs for DVT prophylaxis. - Time Spent with Patient Total time spent is greater than 50% in coordination of care (as documented) at patient's floor/unit and/or counseling patient: Greater than 35 minutes Plan of Care Discussed with: patient Internal Medicine: Result - Labs CBC & Chem 7: 05/04/18 05:55 05/04/18 05:55 Labs: Short CBC 05/04/18 Range/Units 05:55 WBC 9.3 (4.3-11.1) K/mcL Hgb 14.8 (12.9-16.9) g/dL Hct 41.6 (37.5-50.1) % Plt Count 262 (140-400) K/mcL BMP 05/04/18 05:55 Sodium 133 L Potassium 4.3 Chloride 98 Carbon Dioxide 25 BUN 12 Creatinine 1.07 Glucose 128 H Calcium 9.8 - VTE Documentation of Mechanical Device: Intermittent pneumatic compression device Consult Discharge Plan - Plan Referrals: Tamiko Loco, [employer] [employer] [Primary Care Provider] - Prescriptions: Quetiapine Fumarate [Seroquel] 25 mg PO HS #30 tablet ____ (4) Chronic headaches Qualifiers: Headache type: unspecified Intractability: intractable Qualified Code(s): R51 - Headache (8) Insomnia Qualifiers: Insomnia type: other insomnia Qualified Code(s): G47.09 - Other insomnia (9) HLD (hyperlipidemia) Qualifiers: Hyperlipidemia type: pure hypercholesterolemia Qualified Code(s): E78.00 - Pure hypercholesterolemia, unspecified; E78.0 - Pure hypercholesterolemia (10) Dementia Qualifiers: Dementia type: unspecified type Dementia behavioral disturbance: with behavioral disturbance Qualified Code(s): F03.91 - Unspecified dementia with behavioral disturbance (14) HTN (hypertension) Qualifiers: Hypertension type: essential hypertension Qualified Code(s): I10 - Essential (primary) hypertension
[2018-05-04] MEDS: Mirtazapine 15 MG TABLET PO SCH (20:12)
--- NOTE | 2018-05-04 20:28 | Electrocardiograph Report ---
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
[2018-05-05 04:18] LABS: BUN/Creatinine Ratio 16 (6-26); Blood Urea Nitrogen 19 mg/dL (8-23); Calcium 9.6 mg/dL (8.6-10.3); Carbon Dioxide 24 mEq/L (23-29); Chloride 98 mEq/L (98-107); Glucose 118 mg/dL (70-105); Osmolality,Calculated 277 (280-300); Potassium 4.5 mEq/L (3.5-5.1); Sodium 132 mEq/L (136-145); eGFR For Non-African Americans 60 (> 60)
[2018-05-05] MEDS: Lisinopril 20 MG TABLET PO SCH (09:27)
[2018-05-05] MEDS: Loratadine 10 MG TABLET PO SCH (09:27)
[2018-05-05] MEDS: amLODIPine 5 MG TABLET PO SCH (09:27)
[2018-05-05] MEDS: Finasteride 5 MG TABLET PO SCH (09:27)
[2018-05-05] MEDS: Fluticasone Propionate Nasal 50 MCG/SPRAY BOTTLE NS SCH (09:29)
[2018-05-05] MEDS: Aspirin 81 MG TAB.CHEW PO SCH (09:29)
[2018-05-05] MEDS: Acetaminophen 325 MG TABLET PO PRN (10:32)
[2018-05-05 10:41] VITALS: BP 156/81
== END 2018-05-05 12:32 | DRG 71 ==
LOC: 3BNU 16:07 → EMEROOARM 16:07 → 3BNU 22:20
PROVIDERS: ADMIT Internal Medicine; ATTEND Internal Medicine

== ENCOUNTER 2018-05-29 12:29 | Observation (INO) ==
[2018-05-29] MEDS ORDERED: Aspirin 81 MG TAB.CHEW PO ONE (12:40)
--- NOTE | 2018-05-29 12:48 | Emergency Department Note ---
Disposition Clinical Impression: Safety impairment Chest pain Qualifiers: Chest pain type: unspecified Qualified Code(s): R07.9 - Chest pain, unspecified Disposition: Admitted As Inpatient Condition: Fair Time of Disposition: 15:15 General Adult HPI - General Chief complaint: ED General Medical Stated complaint: constipation, UTI Time Seen by Provider: 05/29/18 12:30 Source: patient, EMS Mode of arrival: EMS Limitations: no limitations Nursing Notes Reviewed: Yes Vital Signs Reviewed: Yes - History of Present Illness HPI Narrative: Patient is a 77-year-old male with baseline dementia coming in today with complaints of constipation, chest pain, inability to urinate. Family is on their way to the facility at this moment, patient is alert and oriented to self, place, but not to time. He states that he does not know when his chest pain began, but it is mild and radiating across his chest, and he finds it difficult to describe but says that it hurts a little bit. Patient also does not know the last time he had a bowel movement, and states that he has been unable to urinate all day as far as he knows. He is also complaining of a headache. He is also complaining of a dry cough. And patient states that he has been itchy recently. 1400: Family is in room and states that patient is unable to care for self at home. He has waxing and waning mental status where he seems increasingly confused or will lash out at family occasionally. Additionally, he is not sleeping more than two hours each night and is not eating more than just a few bites here and there. Family is concerned that they are unable to care for him as his that lives with him is 80+ and a 2-time cancer survivor. Pain Scale: 5 - Related Data Home Medications Medication Instructions Recorded Confirmed Aspirin 81 mg PO DAILY 10/09/14 05/29/18 Finasteride [Proscar] 5 mg PO QAM 10/09/14 05/29/18 Lisinopril [Zestril] 20 mg PO QAM 10/09/14 05/29/18 Pravastatin Sodium 10 mg PO HS 10/09/14 05/29/18 amLODIPine [Norvasc] 5 mg PO HS 05/01/18 05/29/18 Melatonin 5 mg Tablet 5 mg PO HS 05/29/18 05/29/18 Allergies Allergy/AdvReac Type Severity Reaction Status Date / Time No Known Allergies Allergy Verified 05/13/18 19:06 Review of Systems: All systems ED: reviewed and negative except as stated. Constitutional: Denies: fever, chills ENT ED: Denies: ear pain, throat pain Reports: rhinorrhea Cardiovascular: Denies: palpitations Reports: chest pain Respiratory: Denies: dyspnea Reports: cough Gastrointestinal: Denies: nausea, vomiting, diarrhea, Reports: constipation, abdominal pain Genitourinary: Denies: urgency, dysuria, frequency Reports: inability to urinate Musculoskeletal: Denies: back pain, Reports: neck pain Integumentary: Denies: rash, abrasion Neurological: Denies: weakness, numbness, paresthesias Reports: headache, frontal Psychiatric: Denies: anxiety, depression Endocrine: Denies: fatigue, heat or cold intolerance Hematological/Lymphatic: Denies: easy bleeding, easy bruising Allergic/Immunologic: Denies: facial swelling, urticaria Past Medical History - Past Medical History Attestation: Yes The following information was validated with the patient. Source: patient Medical history: Reports: dementia, hyperlipidemia, hypertension, other Surgical history: Reports: herniorrhaphy Psychiatric history: Reports: anxiety, depression, other - Social History Smoking Status: Former smoker Smokeless Tobacco Status: No Alcohol use: Reports: none Drug use: Reports: none Physical Exam General: A&O x 2 - person and place. No acute distress. Well developed, well nourished. Pleasant. Easily engaged in conversation. Head: atraumatic, normocephalic. ENT: No conjunctival injection, no scleral icterus. PERRLA. EOMI. Oropharynx non- erythematous. mucous membranes tacky. Neuro: No focal deficits, no speech deficit, no facial droop, mentating well enough. BUE/BLE Str 5/5. Pulm: Lungs CTAB A/P. No wheezes, rales, ronchi. Cardio: RRR no m/r/g. Chest not tender to palpation. Abd: Soft, non-distended. Normoactive bowel sounds. Non-tender to palpation. No guarding. Non rigid. No scars. No rashes. Extremities: Radial pulses 2+ raman, posterior tibialis 2+ raman. No LE edema. No cyanosis, clubbing. Skin: warm, dry, intact. No rashes. Psych: Appropriate mood and affect. Answers questions appropriately. Cooperative with exam. - General General appearance: alert Course Course Narrative: Pt has complaints of constipation/inability to urinate/chest pain. Ddx includes but is not limited to: fecal impaction causing urinary retention, enlarged prostate, ACS, angina, PNA Workup to include: CXR, EKG, CBC, BMP, troponin, lipase, KUB, UA Vital Signs Temperature 97.9 F 05/29/18 12:34 Pulse Rate 69 05/29/18 12:34 Respiratory Rate 15 05/29/18 12:34 Blood Pressure 138/81 05/29/18 12:34 O2 Sat by Pulse Oximetry 100 05/29/18 12:34 Temperature 97.9 F 05/29/18 12:34 Pulse Rate 65 05/29/18 14:30 Respiratory Rate 14 05/29/18 14:30 Blood Pressure 146/85 05/29/18 14:30 O2 Sat by Pulse Oximetry 100 05/29/18 14:30 Oxygen Delivery Oxygen Delivery Room Air Medical Decision Making - MDM Narrative Medical decision making narrative: Pts workup was unremarkable as far as chest pain was concerned - troponin was negative, EKG did not demonstrate ischemic changes, CXR did not show acute cardiopulmonary changes. However, social work evaluated the patient and determined that he was not safe to return to home and would require a more extensive evaluation in order to go to a SNF. Spoke with hospitalist, Dr. Hunter, who agreed to accept the patient for observation. Family was given an opportunity to ask questions at bedside and all of their concerns were addressed. Family verbalized understanding and agreement with plan of care. Pt remained stable while in the department. Patient was able to urinate on his own. No Johnson catheter was placed. - Medical Records Medical records reviewed: Yes I reviewed the patient's medical records. - Lab Data Lab results reviewed: Yes I reviewed the patient's lab results. Result diagrams: 05/29/18 13:43 05/29/18 13:43 Lab Results 05/29/18 05/29/18 05/29/18 Range/Units 13:21 13:43 13:43 WBC 5.4 (4.3-11.1) K/mcL RBC 4.21 (4.19-5.50) M/mcL Hgb 13.3 (12.9-16.9) g/dL Hct 38.1 (37.5-50.1) % MCV 90.5 (83.0-100.0) fL MCH 31.6 (28.0-33.3) pg MCHC 34.9 (31.6-35.5) g/dL RDW 12.6 (11.5-14.5) % Plt Count 270 (140-400) K/mcL MPV 10.2 (9.4-12.4) fL Immature Gran % 0.2 (0-4) % Seg Neutrophils % 55.1 % Lymphocytes % 28.0 % Monocytes % 14.8 % Eosinophils % 1.3 % Basophils % 0.6 % Neutrophils # 3.0 (1.6-8.9) K/mcL Lymphocytes # 1.5 (0.6-4.6) K/mcL Monocytes # 0.8 (0.0-1.3) K/mcL Eosinophils # 0.1 (0.0-0.6) K/mcL Basophils # 0.0 (0.0-0.2) K/mcL PT 11.3 (9.4-12.1) Seconds INR 1.0 APTT 31.4 (26.0-36.0) Seconds Sodium (136-145) mEq/L Potassium (3.5-5.1) mEq/L Chloride (98-107) mEq/L Carbon Dioxide (23-29) mEq/L BUN (8-23) mg/dL Creatinine (0.70-1.30) mg/dL Est GFR ( Amer) (> 60) Est GFR (Non-Af Amer) (> 60) BUN/Creatinine Ratio (6-26) Glucose (70-105) mg/dL Calculated Osmolality (280-300) Calcium (8.6-10.3) mg/dL Total Bilirubin (0.3-1.0) mg/dL Direct Bilirubin (0.0-0.2) mg/dL Indirect Bilirubin (0.0-1.2) mg/dL AST (13-39) Units/L ALT (7-52) Units/L Alkaline Phosphatase (34-104) Units/L Troponin I (< 0.04) ng/mL Serum Total Protein (6.4-8.9) g/dL Albumin (3.5-5.7) g/dL Globulin (2.4-3.5) g/dL Albumin/Globulin Ratio (1.1-2.2) Lipase (11-82) Units/L Urine Color Yellow (Yellow) Urine Clarity Clear (Clear) Urine pH 7.0 (5.0-8.0) pH Units Ur Specific [place] < 1.005 L (1.010-1.025) Urine Protein Negative (Neg-Trace) mg/dL Urine Glucose (UA) Normal (Normal) mg/dL Urine Ketones Negative (Negative) mg/dL Urine Blood Negative (Negative) Urine Nitrite Negative (Negative) Urine Bilirubin Negative (Negative) Urine Urobilinogen Normal (Normal) mg/dL Ur Leukocyte Esterase Negative (Negative) Ur Culture Indicated? NO (NO) 05/29/18 Range/Units 13:43 WBC (4.3-11.1) K/mcL RBC (4.19-5.50) M/mcL Hgb (12.9-16.9) g/dL Hct (37.5-50.1) % MCV (83.0-100.0) fL MCH (28.0-33.3) pg MCHC (31.6-35.5) g/dL RDW (11.5-14.5) % Plt Count (140-400) K/mcL MPV (9.4-12.4) fL Immature Gran % (0-4) % Seg Neutrophils % % Lymphocytes % % Monocytes % % Eosinophils % % Basophils % % Neutrophils # (1.6-8.9) K/mcL Lymphocytes # (0.6-4.6) K/mcL Monocytes # (0.0-1.3) K/mcL Eosinophils # (0.0-0.6) K/mcL Basophils # (0.0-0.2) K/mcL PT (9.4-12.1) Seconds INR APTT (26.0-36.0) Seconds Sodium 131 L (136-145) mEq/L Potassium 4.0 (3.5-5.1) mEq/L Chloride 99 (98-107) mEq/L Carbon Dioxide 23 (23-29) mEq/L BUN 17 (8-23) mg/dL Creatinine 0.97 (0.70-1.30) mg/dL Est GFR ( Amer) > 60 (> 60) Est GFR (Non-Af Amer) > 60 (> 60) BUN/Creatinine Ratio 18 (6-26) Glucose 91 (70-105) mg/dL Calculated Osmolality 273 L (280-300) Calcium 8.8 (8.6-10.3) mg/dL Total Bilirubin 0.5 (0.3-1.0) mg/dL Direct Bilirubin 0.1 (0.0-0.2) mg/dL Indirect Bilirubin 0.4 (0.0-1.2) mg/dL AST 20 (13-39) Units/L ALT 14 (7-52) Units/L Alkaline Phosphatase 64 (34-104) Units/L Troponin I < 0.03 (< 0.04) ng/mL Serum Total Protein 5.8 L (6.4-8.9) g/dL Albumin 3.8 (3.5-5.7) g/dL Globulin 2.0 L (2.4-3.5) g/dL Albumin/Globulin Ratio 1.9 (1.1-2.2) Lipase 19 (11-82) Units/L Urine Color (Yellow) Urine Clarity (Clear) Urine pH (5.0-8.0) pH Units Ur Specific [place] (1.010-1.025) Urine Protein (Neg-Trace) mg/dL Urine Glucose (UA) (Normal) mg/dL Urine Ketones (Negative) mg/dL Urine Blood (Negative) Urine Nitrite (Negative) Urine Bilirubin (Negative) Urine Urobilinogen (Normal) mg/dL Ur Leukocyte Esterase (Negative) Ur Culture Indicated? (NO) - Radiology Data Radiology results reviewed: Yes I reviewed the patient's radiology results. Chest X-Ray 05/29/18 12:40 IMPRESSION: 1. Chest: No acute cardiopulmonary abnormality. 2. Abdomen: Stool throughout the colon may represent mild constipation. No bowel obstruction or acute abnormality. D/ / Zane Xiao MD / Zane zayas MD Interpreting Provider: Zane Xiao MD X-Ray 05/29/18 12:54 IMPRESSION: 1. Chest: No acute cardiopulmonary abnormality. 2. Abdomen: Stool throughout the colon may represent mild constipation. No bowel obstruction or acute abnormality. D/ / Zane Xiao MD / Zane Xiao MD Interpreting Provider: Zane Xiao MD - EKG Data EKG #1 EKG attestation: Yes I reviewed and interpreted this EKG. EKG results narrative: HR 70, rhythm sinus, axis normal. WA 171, QRS 94, QTc 418. No evidence of St elevation or depression. Critical Care Time Critical Care Time: No
[2018-05-29 13:37] LABS: Bilirubin,Urine Negative (Negative); Blood,Urine Negative (Negative); Clarity,Urine Clear (Clear); Color,Urine Yellow (Yellow); Glucose,Urine (UA) Normal (Normal); Ketones,Urine Negative (Negative); Leukocyte Esterase,Urine Negative (Negative); Nitrite,Urine Negative (Negative); Protein,Urine Negative (Neg-Trace); Specific Gravity,Urine < 1.005 (1.010-1.025); Urobilinogen,Urine Normal (Normal)
--- NOTE | 2018-05-29 13:47 | Emergency Department Note ---
Disposition Clinical Impression: Safety impairment Chest pain Qualifiers: Chest pain type: unspecified Qualified Code(s): R07.9 - Chest pain, unspecified Disposition: Admitted As Inpatient Condition: Fair Forms: ED Satisfaction Letter, Work/School Release Time of Disposition: 15:17 General Adult HPI - General Chief complaint: ED General Medical Stated complaint: constipation, UTI Time Seen by Provider: 05/29/18 12:30 Source: patient, EMS Mode of arrival: EMS Limitations: no limitations - History of Present Illness Pain Scale: 5 - Related Data Home Medications Medication Instructions Recorded Confirmed Aspirin 81 mg PO DAILY 10/09/14 05/29/18 Finasteride [Proscar] 5 mg PO QAM 10/09/14 05/29/18 Lisinopril [Zestril] 20 mg PO QAM 10/09/14 05/29/18 Pravastatin Sodium 10 mg PO HS 10/09/14 05/29/18 amLODIPine [Norvasc] 5 mg PO HS 05/01/18 05/29/18 Melatonin 5 mg Tablet 5 mg PO HS 05/29/18 05/29/18 Allergies Allergy/AdvReac Type Severity Reaction Status Date / Time No Known Allergies Allergy Verified 05/13/18 19:06 Past Medical History - Past Medical History Medical history: Reports: dementia, hyperlipidemia, hypertension, other Surgical history: Reports: herniorrhaphy Psychiatric history: Reports: anxiety, depression, other - Social History Smoking Status: Former smoker Smokeless Tobacco Status: No Alcohol use: Reports: none Drug use: Reports: none Physical Exam - General Limitations: no limitations General appearance: alert Course Vital Signs Temperature 97.9 F 05/29/18 12:34 Pulse Rate 69 05/29/18 12:34 Respiratory Rate 15 05/29/18 12:34 Blood Pressure 138/81 05/29/18 12:34 O2 Sat by Pulse Oximetry 100 05/29/18 12:34 Temperature 97.9 F 05/29/18 12:34 Pulse Rate 65 05/29/18 14:30 Respiratory Rate 14 05/29/18 14:30 Blood Pressure 146/85 05/29/18 14:30 O2 Sat by Pulse Oximetry 100 05/29/18 14:30 Oxygen Delivery Oxygen Delivery Room Air Medical Decision Making - Lab Data Result diagrams: 05/29/18 13:43 05/29/18 13:43 Lab Results 05/29/18 05/29/18 05/29/18 Range/Units 13:21 13:43 13:43 WBC 5.4 (4.3-11.1) K/mcL RBC 4.21 (4.19-5.50) M/mcL Hgb 13.3 (12.9-16.9) g/dL Hct 38.1 (37.5-50.1) % MCV 90.5 (83.0-100.0) fL MCH 31.6 (28.0-33.3) pg MCHC 34.9 (31.6-35.5) g/dL RDW 12.6 (11.5-14.5) % Plt Count 270 (140-400) K/mcL MPV 10.2 (9.4-12.4) fL Immature Gran % 0.2 (0-4) % Seg Neutrophils % 55.1 % Lymphocytes % 28.0 % Monocytes % 14.8 % Eosinophils % 1.3 % Basophils % 0.6 % Neutrophils # 3.0 (1.6-8.9) K/mcL Lymphocytes # 1.5 (0.6-4.6) K/mcL Monocytes # 0.8 (0.0-1.3) K/mcL Eosinophils # 0.1 (0.0-0.6) K/mcL Basophils # 0.0 (0.0-0.2) K/mcL PT 11.3 (9.4-12.1) Seconds INR 1.0 APTT 31.4 (26.0-36.0) Seconds Sodium (136-145) mEq/L Potassium (3.5-5.1) mEq/L Chloride (98-107) mEq/L Carbon Dioxide (23-29) mEq/L BUN (8-23) mg/dL Creatinine (0.70-1.30) mg/dL Est GFR ( Amer) (> 60) Est GFR (Non-Af Amer) (> 60) BUN/Creatinine Ratio (6-26) Glucose (70-105) mg/dL Calculated Osmolality (280-300) Calcium (8.6-10.3) mg/dL Total Bilirubin (0.3-1.0) mg/dL Direct Bilirubin (0.0-0.2) mg/dL Indirect Bilirubin (0.0-1.2) mg/dL AST (13-39) Units/L ALT (7-52) Units/L Alkaline Phosphatase (34-104) Units/L Troponin I (< 0.04) ng/mL Serum Total Protein (6.4-8.9) g/dL Albumin (3.5-5.7) g/dL Globulin (2.4-3.5) g/dL Albumin/Globulin Ratio (1.1-2.2) Lipase (11-82) Units/L Urine Color Yellow (Yellow) Urine Clarity Clear (Clear) Urine pH 7.0 (5.0-8.0) pH Units Ur Specific [place] < 1.005 L (1.010-1.025) Urine Protein Negative (Neg-Trace) mg/dL Urine Glucose (UA) Normal (Normal) mg/dL Urine Ketones Negative (Negative) mg/dL Urine Blood Negative (Negative) Urine Nitrite Negative (Negative) Urine Bilirubin Negative (Negative) Urine Urobilinogen Normal (Normal) mg/dL Ur Leukocyte Esterase Negative (Negative) Ur Culture Indicated? NO (NO) 05/29/18 Range/Units 13:43 WBC (4.3-11.1) K/mcL RBC (4.19-5.50) M/mcL Hgb (12.9-16.9) g/dL Hct (37.5-50.1) % MCV (83.0-100.0) fL MCH (28.0-33.3) pg MCHC (31.6-35.5) g/dL RDW (11.5-14.5) % Plt Count (140-400) K/mcL MPV (9.4-12.4) fL Immature Gran % (0-4) % Seg Neutrophils % % Lymphocytes % % Monocytes % % Eosinophils % % Basophils % % Neutrophils # (1.6-8.9) K/mcL Lymphocytes # (0.6-4.6) K/mcL Monocytes # (0.0-1.3) K/mcL Eosinophils # (0.0-0.6) K/mcL Basophils # (0.0-0.2) K/mcL PT (9.4-12.1) Seconds INR APTT (26.0-36.0) Seconds Sodium 131 L (136-145) mEq/L Potassium 4.0 (3.5-5.1) mEq/L Chloride 99 (98-107) mEq/L Carbon Dioxide 23 (23-29) mEq/L BUN 17 (8-23) mg/dL Creatinine 0.97 (0.70-1.30) mg/dL Est GFR ( Amer) > 60 (> 60) Est GFR (Non-Af Amer) > 60 (> 60) BUN/Creatinine Ratio 18 (6-26) Glucose 91 (70-105) mg/dL Calculated Osmolality 273 L (280-300) Calcium 8.8 (8.6-10.3) mg/dL Total Bilirubin 0.5 (0.3-1.0) mg/dL Direct Bilirubin 0.1 (0.0-0.2) mg/dL Indirect Bilirubin 0.4 (0.0-1.2) mg/dL AST 20 (13-39) Units/L ALT 14 (7-52) Units/L Alkaline Phosphatase 64 (34-104) Units/L Troponin I < 0.03 (< 0.04) ng/mL Serum Total Protein 5.8 L (6.4-8.9) g/dL Albumin 3.8 (3.5-5.7) g/dL Globulin 2.0 L (2.4-3.5) g/dL Albumin/Globulin Ratio 1.9 (1.1-2.2) Lipase 19 (11-82) Units/L Urine Color (Yellow) Urine Clarity (Clear) Urine pH (5.0-8.0) pH Units Ur Specific [place] (1.010-1.025) Urine Protein (Neg-Trace) mg/dL Urine Glucose (UA) (Normal) mg/dL Urine Ketones (Negative) mg/dL Urine Blood (Negative) Urine Nitrite (Negative) Urine Bilirubin (Negative) Urine Urobilinogen (Normal) mg/dL Ur Leukocyte Esterase (Negative) Ur Culture Indicated? (NO) Attestation Statement - Attestation Attestation: I examined this patient and my medical decision-making was reviewed with the Resident Physician. I agree with the documented findings, disposition and treatment plan as described except to the extent set forth below. Patient presents to the ED with a chief complaint of constipation, difficulty urinating, and chest pain. EMS reports that family sent him in because her no longer able to take care of him at home. On examination he is in no distress. Abdomen is soft. Moving all extremities. Plan. Awaiting family arrival. We will check a KUB and basic labs. Patient is without stool impaction. Able to urinate without any difficulties. Cardiac workup is unremarkable. Patient will be admitted secondary to safety concerns. Chest X-Ray 05/29/18 12:40 IMPRESSION: 1. Chest: No acute cardiopulmonary abnormality. 2. Abdomen: Stool throughout the colon may represent mild constipation. No bowel obstruction or acute abnormality. D/ / Zane Xiao MD / Zane Xiao MD Interpreting Provider: Zane Xiao MD X-Ray 05/29/18 12:54 IMPRESSION: 1. Chest: No acute cardiopulmonary abnormality. 2. Abdomen: Stool throughout the colon may represent mild constipation. No bowel obstruction or acute abnormality. D/ / Zane Xiao MD / Zane Xiao MD Interpreting Provider: Zane Xiao MD Normal sinus at 70. Normal ST segments other than a T-wave inversion in aVL which is nonspecific. T-wave inversion is new from May 03.
[2018-05-29 13:56] LABS: Basophils % 0.6 %; Eosinophils # 0.1 K/mcL (0.0-0.6); Eosinophils % 1.3 %; Hematocrit 38.1 % (37.5-50.1); Hemoglobin 13.3 g/dL (12.9-16.9); Immature Granulocytes % 0.2 % (0-4); Lymphocytes # 1.5 K/mcL (0.6-4.6); Mean Corpuscular HGB Conc 34.9 g/dL (31.6-35.5); Mean Corpuscular Hemoglobin 31.6 pg (28.0-33.3); Mean Corpuscular Volume 90.5 fL (83.0-100.0); Mean Platelet Volume 10.2 fL (9.4-12.4); Monocytes # 0.8 K/mcL (0.0-1.3); Monocytes % 14.8 %; Platelet Count 270 K/mcL (140-400); Red Blood Count 4.21 M/mcL (4.19-5.50); Red Cell Distribution Width 12.6 % (11.5-14.5); Segmented Neutrophils % 55.1 %
[2018-05-29 14:07] LABS: Prothrombin Time 11.3 Seconds (9.4-12.1)
[2018-05-29 14:09] LABS: Activated Partial Thrombo Time 31.4 Seconds (26.0-36.0)
[2018-05-29 14:27] LABS: Alanine Aminotransferase 14 Units/L (7-52); Albumin 3.8 g/dL (3.5-5.7); Albumin/Globulin Ratio 1.9 (1.1-2.2); Alkaline Phosphatase 64 Units/L (34-104); Aspartate Amino Transferase 20 Units/L (13-39); BUN/Creatinine Ratio 18 (6-26); Bilirubin,Direct 0.1 mg/dL (0.0-0.2); Bilirubin,Indirect 0.4 mg/dL (0.0-1.2); Bilirubin,Total 0.5 mg/dL (0.3-1.0); Blood Urea Nitrogen 17 mg/dL (8-23); Calcium 8.8 mg/dL (8.6-10.3); Carbon Dioxide 23 mEq/L (23-29); Chloride 99 mEq/L (98-107); Glucose 91 mg/dL (70-105); Lipase 19 Units/L (11-82); Osmolality,Calculated 273 (280-300); Sodium 131 mEq/L (136-145); Total Protein 5.8 g/dL (6.4-8.9); Troponin I < 0.03 ng/mL (< 0.04); eGFR For Non-African Americans > 60 (> 60)
[2018-05-29] MEDS ORDERED: Naloxone 0.4 MG/ML INJ IVP PRN (16:03)
[2018-05-29] MEDS ORDERED: MOM Conc 10 ML UD.LIQ PO PRN (16:03)
--- NOTE | 2018-05-29 16:36 | Internal Med History&Physical ---
Date of Encounter: 05/29/18 Time of Encounter: 16:31 Internal Medicine - H&P: HPI Chief complaint: Chest pain Admitted From: Emergency Dept Plans for Post Hospital Care: Home History of present illness: Mr. Denney is a 77 year old male w/PMH of HTN, HLD, urinary retention, mild dementia, anxiety and depression pt who was recently discharged to [facility] in April, now he was brought to ER b family c/o pt has been c/o sub sternal chest pain from last 2 days. Also pt is becoming more agitated and confused family unable to care for him. He is alert, awake and Oriented to self only. Seems very confused and demented. However he is still c.o chest pain, non radiating pain. Unable to describe what kind of pain. Past Med Surg Social Fam HX - Past Medical History Medical history: dementia, hyperlipidemia, hypertension, other Additional medical history: ALZHEIMERS Psychiatric history: anxiety, depression, other - Past Surgical History Surgical History: herniorrhaphy Additional surgical history: heart cath - Social History Smoking Status: Former smoker Smokeless Tobacco Status: No Alcohol use: none Drug use: none - Family History Mother Family Member Ethnicity: Non- Living Status: Hx Family Endocrine Disorder: Yes (DM) Brother Family Member Ethnicity: Non- Living Status: Still Living Hx Family Cardiac Disorders: Yes (CAD, CABG) Sister Family Member Ethnicity: Non- Living Status: Hx Family Cancer: Yes (Colon) Father Family Member Ethnicity: Non- Living Status: Hx Family Cardiac Disorders: Yes Hx Family Cancer: Yes (Prostate cancer) Internal Medicine - H&P: Meds Aspirin 81 mg PO DAILY 10/09/14 [History] Finasteride [Proscar] 5 mg PO QAM 10/09/14 [History] Lisinopril [Zestril] 20 mg PO QAM 10/09/14 [History] Pravastatin Sodium 10 mg PO HS 10/09/14 [History] amLODIPine [Norvasc] 5 mg PO HS 05/01/18 [History] Melatonin 5 mg Tablet 5 mg PO HS 05/29/18 [History] Allergy/AdvReac Type Severity Reaction Status Date / Time No Known Allergies Allergy Verified 05/13/18 19:06 All Systems PM: A 10-system review of systems was performed and is negative for pertinent findings except as documented above in the HPI. Review of systems: All the systems are reviewed everything is benign except the systems and symptoms I mentioned in the history of present illness - Constitutional Vitals: Temp Pulse Resp BP Pulse Ox 97.9 F 65 14 146/85 100 05/29/18 12:34 05/29/18 14:30 05/29/18 14:30 05/29/18 14:30 05/29/18 14:30 General appearance: Present: A&O X 1, no acute distress, answers questions appropriately Exam: See below - Head Head exam: Present: atraumatic, normal inspection - Neck Neck exam general surgery: Present: supple - Respiratory Respiratory exam: Present: decreased breath sounds. Absent: rales, respiratory distress, rhonchi, wheezes - Cardiovascular Cardiovascular exam: Present: RRR, +S1, +S2. Absent: tachycardia - GI/Abdominal GI/Abdominal exam: Present: normal bowel sounds, soft. Absent: rebound, rigid, tenderness - Extremities Exam Extremities exam: Absent: calf tenderness, pedal edema, tenderness - Back Exam Back exam: Absent: CVA tenderness (L), CVA tenderness (R) - Neurological Exam Neurological exam: Present: alert, altered (demented and confused), no focal deficits, strengths equal and symetr throughout. Absent: speech deficit - Psychiatric Psychiatric exam: Present: anxious, depressed. Absent: suicidal ideation - Skin Skin exam: Absent: rash Internal Med - H&P Results - Labs CBC & Chem 7: 05/29/18 13:43 05/29/18 13:43 Labs: Short CBC 05/29/18 Range/Units 13:43 WBC 5.4 (4.3-11.1) K/mcL Hgb 13.3 (12.9-16.9) g/dL Hct 38.1 (37.5-50.1) % Plt Count 270 (140-400) K/mcL Neutrophils # 3.0 (1.6-8.9) K/mcL BMP 05/29/18 13:43 Sodium 131 L Potassium 4.0 Chloride 99 Carbon Dioxide 23 BUN 17 Creatinine 0.97 Glucose 91 Calcium 8.8 Cardiac Enzymes 05/29/18 Range/Units 13:43 Troponin I < 0.03 (< 0.04) ng/mL Liver Function 05/29/18 Range/Units 13:43 Total Bilirubin 0.5 (0.3-1.0) mg/dL Direct Bilirubin 0.1 (0.0-0.2) mg/dL AST 20 (13-39) Units/L ALT 14 (7-52) Units/L Alkaline Phosphatase 64 (34-104) Units/L Albumin 3.8 (3.5-5.7) g/dL Urine 05/29/18 Range/Units 13:21 Urine Color Yellow (Yellow) Urine Clarity Clear (Clear) Urine pH 7.0 (5.0-8.0) pH Units Ur Specific [place] < 1.005 L (1.010-1.025) Urine Protein Negative (Neg-Trace) mg/dL Urine Glucose (UA) Normal (Normal) mg/dL - Impressions ITS Impressions Chest X-Ray 05/29/18 12:40 IMPRESSION: 1. Chest: No acute cardiopulmonary abnormality. 2. Abdomen: Stool throughout the colon may represent mild constipation. No bowel obstruction or acute abnormality. D/ / Zane Xiao MD / Zane Xiao MD Interpreting Provider: Zane Xiao MD X-Ray 05/29/18 12:54 IMPRESSION: 1. Chest: No acute cardiopulmonary abnormality. 2. Abdomen: Stool throughout the colon may represent mild constipation. No bowel obstruction or acute abnormality. D/ / Zane Xiao MD / Zane Xiao MD Interpreting Provider: Zane Xiao MD - Assessment and Plan (1) Chest pain Current Visit: Yes Status: Acute Assessment and plan: Will admit the pt into Tele for observation Will place pt on quality assurance monitor chassis check serial troponin so far negative troponin EKG reviewed - NSR, no acute ischemic changes noticed cont ASA and started on Nitro PRN for pain Will check FLP in AM Will get stress test in AM since pt is high risk for ACS Qualifiers: Chest pain type: unspecified Qualified Code(s): R07.9 - Chest pain, unspecified (2) Altered mental status Current Visit: No Status: Acute Assessment and plan: 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 for which he has to be evaluated mental health dept for clearance SW working on it Qualifiers: Altered mental status type: delirium Qualified Code(s): R41.0 - Disorientation, unspecified (3) Alzheimer's dementia Current Visit: No Status: Acute Qualifiers: Alzheimer's disease onset: unspecified onset Dementia behavioral disturbance: with behavioral disturbance Qualified Code(s): G30.9 - Alzheimer's disease, unspecified; F02.81 - Dementia in other diseases classified elsewhere with behavioral disturbance (4) DVT prophylaxis Current Visit: No Status: Acute Assessment and plan: Sub Q heparin (5) HLD (hyperlipidemia) Current Visit: No Status: Chronic Assessment and plan: on statin Qualifiers: Hyperlipidemia type: pure hypercholesterolemia Qualified Code(s): E78.00 - Pure hypercholesterolemia, unspecified; E78.0 - Pure hypercholesterolemia (6) HTN (hypertension) Current Visit: No Status: Chronic Assessment and plan: resumed home meds stable Qualifiers: Hypertension type: essential hypertension Qualified Code(s): I10 - Essential (primary) hypertension - Time Spent With Patient Total time spent is greater than 50% in coordination of care (as documented) at patient's floor/unit and/or counseling patient:
[2018-05-29] MEDS: *HR* Heparin 5,000 UNIT/ML VIAL SQ SCH (19:48)
[2018-05-29] MEDS: amLODIPine 5 MG TABLET PO SCH (20:20)
[2018-05-29] MEDS: Melatonin 3 MG TABLET PO SCH (20:20)
[2018-05-30 05:29] LABS: Chol/HDL Ratio 2.9 (0-4.9); Cholesterol 143 mg/dL (< 200); HDL Cholesterol 49 mg/dL (40-59); LDL Cholesterol,Calculated 78 mg/dL (0-99); Triglycerides 81 mg/dL (< 150); Troponin I < 0.03 ng/mL (< 0.04)
[2018-05-30] MEDS ORDERED: Regadenoson 0.4 MG/5 ML SYRINGE IVP ONE (06:16)
[2018-05-30] MEDS: *HR* Heparin 5,000 UNIT/ML VIAL SQ SCH ×2 (06:18→18:32)
--- NOTE | 2018-05-30 07:21 | Electrocardiograph Report ---
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
[2018-05-30] MEDS: Lisinopril 20 MG TABLET PO SCH (10:03)
[2018-05-30] MEDS: Aspirin 81 MG TAB.CHEW PO SCH (10:03)
[2018-05-30] MEDS: Finasteride 5 MG TABLET PO SCH (10:03)
[2018-05-30] MEDS: Acetaminophen 325 MG TABLET PO PRN (10:03)
[2018-05-30] MEDS: *HR* HYDROcodone/Acet 5/325 mg TABLET PO PRN (11:09)
--- NOTE | 2018-05-30 13:46 | Cardiology Consult Note ---
<London Beyer R - Last Filed: 05/30/18 13:40> Date of Encounter: 05/30/18 Time of Encounter: 13:40 Assessment and Plan (1) Abnormal stress test Current Visit: Yes Status: Acute Nuclear stress test completed--perfusion imaging was positive for ischemia. Small sized reversible perfusion defect mild in intensity in the mid inferolateral segment. Gated EF 71%. TTE 04/2018 LVEF 60-65%. Normal LV chamber size, wall thickness and function. Mild LVDD. Normal RV structure and function. No evidence of pulmonary hypertension. No significant valvular dysfunction. Pt with confusion and dementia. He is unable to describe any details about his chest pain, only that he had some and it is now gone. The the low risk findings on stress, recommend medical management. Pt is on ASA and Statin. Will start low dose BB and Imdur 30mg daily. Will coordinate outpt follow-up for re-evaluation. Anticipate sign off once seen and evaluated by Dr. Jenkins. (2) Chest pain Current Visit: Yes Status: Acute As above. Qualifiers: Chest pain type: unspecified Qualified Code(s): R07.9 - Chest pain, unspecified Discussion w patient/family: The assessment and plan as outlined above was discussed with the patient and/or family members who expressed understanding and agreement. All questions were answered. Thank you for involving us in the care of your patient. Please call with any questions. I will discuss all the above with Dr. Jenkins and make changes as necessary. History of Present Illness Consult date: 05/30/18 Requesting physician: Alexsandra Navarro Consult reason: abnormal stress Chief complaint: chest pain History of present illness: Mr. Denney is a 77 year old male w/PMH of HTN, HLD, urinary retention, mild dementia, anxiety and depression pt who was recently discharged to [facility] in April, now he was brought to ER b family c/o pt has been c/o sub sternal chest pain from last 2 days. Also pt is becoming more agitated and confused family unable to care for him. He is confused and demented. Currently chest pain free. He is unable to describe pain when he had it. Troponins negative. Nuclear stress test completed--perfusion imaging was positive for ischemia. Small sized reversible perfusion defect mild in intensity in the mid inferolateral segment. Gated EF 71%. Cardiology consulted for further recs. Recent TTE 04/2018 LVEF 60- 65%. Normal LV chamber size, wall thickness and function. Mild LVDD. Normal RV structure and function. No evidence of pulmonary hypertension. No significant valvular dysfunction. Past Med Surg Social Fam HX - Past Medical History Medical history: dementia, hyperlipidemia, hypertension Additional medical history: ALZHEIMERS Psychiatric history: anxiety, depression, other - Past Surgical History Surgical History: herniorrhaphy Additional surgical history: heart cath - Social History Smoking Status: Former smoker Smokeless Tobacco Status: No Alcohol use: none Drug use: none - Family History Mother Family Member Ethnicity: Non- Living Status: Hx Family Endocrine Disorder: Yes (DM) Brother Family Member Ethnicity: Non- Living Status: Still Living Hx Family Cardiac Disorders: Yes (CAD, CABG) Sister Family Member Ethnicity: Non- Living Status: Hx Family Cancer: Yes (Colon) Father Family Member Ethnicity: Non- Living Status: Hx Family Cardiac Disorders: Yes Hx Family Cancer: Yes (Prostate cancer) Medications and Allergies Aspirin 81 mg PO DAILY 10/09/14 [History] Finasteride [Proscar] 5 mg PO QAM 10/09/14 [History] Lisinopril [Zestril] 20 mg PO QAM 10/09/14 [History] Pravastatin Sodium 10 mg PO HS 10/09/14 [History] amLODIPine [Norvasc] 5 mg PO HS 05/01/18 [History] Melatonin 5 mg Tablet 5 mg PO HS 05/29/18 [History] Allergy/AdvReac Type Severity Reaction Status Date / Time No Known Allergies Allergy Verified 05/13/18 19:06 All Systems Review: The remainder of the systems were reviewed and are negative - Cardiovascular Cardiovascular: as per HPI, chest pain at rest, chest pain with exertion Physical Examination Vital Signs, Last 4 Hours Temp Pulse Resp BP Pulse Ox 05/30/18 11:40 97.9 F 70 16 136/78 98 Vital Signs Temp Pulse Resp BP Pulse Ox 05/30/18 11:40 97.9 F 70 16 136/78 98 05/30/18 08:52 97.5 F L 74 16 152/80 100 05/29/18 23:13 97.5 F L 69 17 142/73 98 05/29/18 17:28 97.9 F 67 17 148/77 99 05/29/18 14:30 65 14 146/85 100 Intake and Output 05/29/18 05/30/18 05/30/18 23:59 07:59 15:59 Intake Total 120 / 120 0 / 0 0 / 0 Balance 120 / 120 0 / 0 0 / 0 Intake: Oral 120 / 120 0 / 0 0 / 0 Other: Meal NPO Percent of Meal Consumed 0% # Voids 2 2 Weight 74.616 kg 74.616 kg Patient Weight 05/30/18 23:59 Weight 74.616 kg General: Conversant, No Apparent Distress HEENT: Atraumatic, Normocephaly, Mucus Membranes Moist Neck: No JVD, Normal carotid pulses Cardiac: Reg Rate and Rhythm, Normal S1 and S2, No Murmur Lungs: Normal Breath Sounds, No Wheeze, Rales, Rhonchi Neuro: Alert and responsive, No focal deficits noted Abdomen: Soft, Non-Tender Skin: No rashes noted on visualized skin Musculoskeletal: No Chest Wall Tenderness Extremities: No Clubbing, No Cyanosis, No Edema, Normal Pulses Results 05/29/18 13:43 05/29/18 13:43 Lab Results 05/29/18 05/29/18 05/29/18 13:43 13:43 13:43 WBC 5.4 Hgb 13.3 Hct 38.1 Plt Count 270 INR 1.0 APTT 31.4 Sodium 131 L Potassium 4.0 Chloride 99 Carbon Dioxide 23 BUN 17 Creatinine 0.97 Glucose 91 Calcium 8.8 Total Bilirubin 0.5 AST 20 ALT 14 Alkaline Phosphatase 64 Troponin I < 0.03 Lipase 19 05/29/18 05/30/18 21:57 04:39 WBC Hgb Hct Plt Count INR APTT Sodium Potassium Chloride Carbon Dioxide BUN Creatinine Glucose Calcium Total Bilirubin AST ALT Alkaline Phosphatase Troponin I < 0.03 < 0.03 Lipase BMP 05/29/18 Range/Units 13:43 Sodium 131 L (136-145) mEq/L Potassium 4.0 (3.5-5.1) mEq/L Chloride 99 (98-107) mEq/L Carbon Dioxide 23 (23-29) mEq/L BUN 17 (8-23) mg/dL Creatinine 0.97 (0.70-1.30) mg/dL Glucose 91 (70-105) mg/dL Calcium 8.8 (8.6-10.3) mg/dL Cardiac Enzymes 05/30/18 05/29/18 05/29/18 Range/Units 04:39 21:57 13:43 Troponin I < 0.03 < 0.03 < 0.03 (< 0.04) ng/mL Liver Function 05/29/18 Range/Units 13:43 Total Bilirubin 0.5 (0.3-1.0) mg/dL Direct Bilirubin 0.1 (0.0-0.2) mg/dL AST 20 (13-39) Units/L ALT 14 (7-52) Units/L Alkaline Phosphatase 64 (34-104) Units/L Albumin 3.8 (3.5-5.7) g/dL Active Medications Acetaminophen (Tylenol) 650 mg PO Q6HR PRN PRN Reason: Mild Pain/Fever Stop: 11/28/18 16:04 Last Admin: 05/30/18 10:03 Dose: 650 mg Hydrocodone Bitart/Acetaminophen (Paulina 5-325 Mg) 1 tab PO Q6HR PRN PRN Reason: Moderate Pain Stop: 11/28/18 16:04 Last Admin: 05/30/18 11:09 Dose: 1 tab Amlodipine Besylate (Norvasc) 5 mg PO HS [facility]; Protocol Stop: 11/28/18 21:01 Last Admin: 05/29/18 20:20 Dose: 5 mg Aspirin (Aspirin) 81 mg PO DAILY [facility] Stop: 11/29/18 09:01 Last Admin: 05/30/18 10:03 Dose: 81 mg Docusate Sodium (Colace) 100 mg PO BID [facility] Stop: 11/28/18 21:01 Last Admin: 05/30/18 10:03 Dose: 100 mg Finasteride (Proscar) 5 mg PO QAM [facility]; Protocol Stop: 11/29/18 09:01 Last Admin: 05/30/18 10:03 Dose: 5 mg Haloperidol (Haldol) 0.5 mg PO QID PRN PRN Reason: Delerium Stop: 11/28/18 17:01 Last Admin: 05/30/18 10:54 Dose: 0.5 mg Heparin Sodium (Porcine) (Heparin) 5,000 unit SQ Q12HCO [facility] Stop: 11/28/18 18:01 Last Admin: 05/30/18 06:18 Dose: Not Given Lisinopril (Zestril) 20 mg PO QAM [facility]; Protocol Stop: 11/29/18 09:01 Last Admin: 05/30/18 10:03 Dose: 20 mg Magnesium Hydroxide (Milk Of Magnesia Conc) 10 ml PO DAILY PRN PRN Reason: Constipation Stop: 11/28/18 16:04 Melatonin (Melatonin) 6 mg PO HS [facility] Stop: 11/28/18 21:01 Last Admin: 05/29/18 20:20 Dose: 6 mg Naloxone HCl (Narcan) 0.4 mg IVP Q2M PRN PRN Reason: SEE COMMENTS Stop: 11/28/18 16:04 Ondansetron HCl (Zofran) 4 mg IVP Q8HR PRN PRN Reason: Nausea And Vomiting Stop: 11/28/18 16:04 Simvastatin (Zocor) 5 mg PO HS [facility] Stop: 11/28/18 21:01 Last Admin: 05/29/18 20:20 Dose: 5 mg - Imaging and Cardiology Stress Test: report reviewed Echo: report reviewed - EKG Interpretation EKG results cardiology: personally reviewed (SR) Consult Discharge Plan - Plan Referrals: Tamiko Loco, STAGE DRIVER [Primary Care Provider] - <Linsey Jenkins - Last Filed: 05/30/18 17:29> Date of Encounter: 05/30/18 - Attending Attestation Patient was seen and evaluated independently by me. Findings, assessment and plan were discussed at length with patient, questions answered. Agree with nurse practitioner's/resident's documentation. Addition as follows, 77 yoCM ho HTN, HLD, dementia, depression. P/w 2 days of atypical chest pain with agitation and confusion. ECG no ischemic changes, trop negative, Pharm SPECT mild mid-basal inferolateral ischemia SDS2-3. TTE [id number] wnl except for mild diastolic dysfunction. No chest pain recurrence after admission. BP mild fluctuation, no O2 requirement, euvolemia on exam. CBC/BMP wnl. A: Mild inferolateral ischemia on SPECT, SDS2-3 Atypical angina HTN HLD P: medical management for now ASA, statin, BB, imdur BP ctr f/u cardiology clinic Linsey Jenkins MD, PhD Assessment and Plan Discussion w patient/family: The assessment and plan as outlined above was discussed with the patient and/or family members who expressed understanding and agreement. All questions were answered. Thank you for involving us in the care of your patient. Please call with any questions. History of Present Illness History of present illness: Mr. Denney is a 77 year old male All Systems Review: The remainder of the systems were reviewed and are negative Results 05/29/18 13:43 05/29/18 13:43 Lab Results 05/29/18 05/30/18 21:57 04:39 Troponin I < 0.03 < 0.03
--- NOTE | 2018-05-30 14:08 | Internal Med Progress Note ---
Hospitalist Progress Note - Encounter Date of Encounter: 05/30/18 Time of Encounter: 14:06 - Subjective Interval History: Mr. eDnney is a 77 year old male w/PMH of HTN, HLD, urinary retention, mild dementia, anxiety and depression pt who was recently discharged to [facility] in April, now he was brought to ER b family c/o pt has been c/o sub sternal ch est pain from last 2 days. Also pt is becoming more agitated and confused family unable to care for him. He is alert, awake and Oriented to self only. Seems very confused and demented. However he is still c.o chest pain, non radiating pain. Unable to describe what kind of pain. He was admitted in the hospital and placed him on air sampling and monitoring. His serial troponin came back as negative. Patient is still complaining about intermittent chest pain. He is also confused and demented unable to provide a good reliable history. - Exam Vitals: Temp Pulse Resp BP Pulse Ox 97.9 F 70 16 136/78 98 05/30/18 11:40 05/30/18 11:40 05/30/18 11:40 05/30/18 11:40 05/30/18 11:40 Exam: Gen: Alert, awake, Oriented to self.. Demented. Chest: Diminished breath sounds B/L, No wheezing, No crackles, No rales Heart: S1S2+ RRR No murmurs Abd: Soft, NT, BS +, No organomegaly Ext: No edema, pulses are palpable, No calf tenderness Neuro : no focal neuro deficits Skin: No rash. - Assessment and Plan (1) Chest pain Current Visit: Yes Status: Acute Assessment and Plan: His serial troponin were negative EKG reviewed - NSR, no acute ischemic changes noticed cont ASA and started on Nitro PRN for pain reviewed his lipid profile - LDL @ 78 since he is high risk for ACS did go for nuclear stress test which came back as slightly abnormal Perfusion imaging was positive for ischemia.There is a small sized reversible perfusion defect which is mild in intensity in the mid-inferolateral segment. 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 for which he need to be evaluated mental health dept for clearance SW working on it (3) Alzheimer's dementia Current Visit: No Status: Acute (4) DVT prophylaxis Current Visit: No Status: Acute Assessment and Plan: Sub Q heparin (5) HLD (hyperlipidemia) Current Visit: No Status: Chronic Assessment and Plan: on statin (6) HTN (hypertension) Current Visit: No Status: Chronic Assessment and Plan: resumed home meds stable - Time Spent with Patient Total time spent is greater than 50% in coordination of care (as documented) at patient's floor/unit and/or counseling patient: Internal Medicine: Result - Labs CBC & Chem 7: 05/29/18 13:43 05/29/18 13:43 Labs: BMP 05/29/18 13:43 Sodium 131 L Potassium 4.0 Chloride 99 Carbon Dioxide 23 BUN 17 Creatinine 0.97 Glucose 91 Calcium 8.8 Cardiac Enzymes 05/29/18 05/29/18 05/30/18 Range/Units 13:43 21:57 04:39 Troponin I < 0.03 < 0.03 < 0.03 (< 0.04) ng/mL Liver Function 05/29/18 Range/Units 13:43 Total Bilirubin 0.5 (0.3-1.0) mg/dL Direct Bilirubin 0.1 (0.0-0.2) mg/dL AST 20 (13-39) Units/L ALT 14 (7-52) Units/L Alkaline Phosphatase 64 (34-104) Units/L Albumin 3.8 (3.5-5.7) g/dL - ABG Interpretation ABG results: PT/INR, D-dimer PT 11.3 Seconds (9.4-12.1) 05/29/18 13:43 Consult Discharge Plan - Plan Referrals: Tamiko Loco, FOOD EQUIPMENT SERVICE TECHNICIAN [Primary Care Provider] - (1) Chest pain Qualifiers: Chest pain type: unspecified Qualified Code(s): R07.9 - Chest pain, unspecified (2) Altered mental status Qualifiers: Altered mental status type: delirium Qualified Code(s): R41.0 - Disorientation, unspecified (3) Alzheimer's dementia Qualifiers: Alzheimer's disease onset: unspecified onset Dementia behavioral disturbance: with behavioral disturbance Qualified Code(s): G30.9 - Alzheimer's disease, unspecified; F02.81 - Dementia in other diseases classified elsewhere with behavioral disturbance (5) HLD (hyperlipidemia) Qualifiers: Hyperlipidemia type: pure hypercholesterolemia Qualified Code(s): E78.00 - Pure hypercholesterolemia, unspecified; E78.0 - Pure hypercholesterolemia (6) HTN (hypertension) Qualifiers: Hypertension type: essential hypertension Qualified Code(s): I10 - Essential (primary) hypertension
[2018-05-30] MEDS: Isosorbide MONOnitrate (24 HR) 30 MG TAB.ER.24H PO SCH (14:31)
[2018-05-30] MEDS: Melatonin 3 MG TABLET PO SCH (21:08)
[2018-05-30] MEDS: amLODIPine 5 MG TABLET PO SCH (21:08)
[2018-05-31] MEDS: *HR* Heparin 5,000 UNIT/ML VIAL SQ SCH ×2 (05:26→18:57)
[2018-05-31] MEDS: Aspirin 81 MG TAB.CHEW PO SCH (08:47)
[2018-05-31] MEDS: Isosorbide MONOnitrate (24 HR) 30 MG TAB.ER.24H PO SCH (08:48)
[2018-05-31] MEDS: Finasteride 5 MG TABLET PO SCH (08:48)
[2018-05-31] MEDS: Acetaminophen 325 MG TABLET PO PRN ×2 (08:50→16:42)
[2018-05-31] MEDS: Lisinopril 20 MG TABLET PO SCH (09:41)
--- NOTE | 2018-05-31 10:21 | Internal Med Progress Note ---
Hospitalist Progress Note - Encounter Date of Encounter: 05/31/18 Time of Encounter: 10:18 - Subjective Interval History: Mr. Denney is a 77 year old male w/PMH of HTN, HLD, urinary retention, mild dementia, anxiety and depression pt who was recently discharged to [facility] in April, now he was brought to ER b family c/o pt has been c/o sub sternal c hest pain from last 2 days. Also pt is becoming more agitated and confused family unable to care for him. He is alert, awake and Oriented to self only. Seems very confused and demented. However he is still c.o chest pain, non radiating pain. Unable to describe what kind of pain. He was admitted in the hospital and placed him on pattern designer. His serial troponin came back as negative. He denied any active CP today. However he is c/o generalized pains, huts every where. He is also confused and demented unable to provide a good reliable history. - Exam Vitals: Temp Pulse Resp BP Pulse Ox 97.8 F 63 16 110/70 96 05/31/18 06:39 05/31/18 06:39 05/31/18 06:39 05/31/18 06:39 05/31/18 06:39 Exam: Gen: Alert, awake, Oriented to self.. Demented. Chest: Diminished breath sounds B/L, No wheezing, No crackles, No rales Heart: S1S2+ RRR No murmurs Abd: Soft, NT, BS +, No organomegaly Ext: No edema, pulses are palpable, No calf tenderness Neuro : no focal neuro deficits Skin: No rash. - Assessment and Plan (1) Chest pain Current Visit: Yes Status: Acute Assessment and Plan: His serial troponin were negative EKG reviewed - NSR, no acute ischemic changes noticed His stress test came back as slightly abnormal. There is a small sized reversible perfusion defect which is mild in intensity in the mid-inferolateral segment. Card consulted.. who evaluated the pt and recommend medical management only started on ASA, Imdur and Metoprolol. 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 for which he need to be evaluated mental health dept for clearance SW working on it (3) Alzheimer's dementia Current Visit: No Status: Acute (4) DVT prophylaxis Current Visit: No Status: Acute Assessment and Plan: Sub Q heparin (5) HLD (hyperlipidemia) Current Visit: No Status: Chronic Assessment and Plan: on statin (6) HTN (hypertension) Current Visit: No Status: Chronic Assessment and Plan: Stable with home medications (7) Urinary retention Current Visit: Yes Status: Acute Assessment and Plan: Family complaining about patient does have urinary retention Will do frequent bladder scans continue close monitoring - Time Spent with Patient Total time spent is greater than 50% in coordination of care (as documented) at patient's floor/unit and/or counseling patient: Internal Medicine: Result - Labs CBC & Chem 7: 05/29/18 13:43 05/29/18 13:43 - ABG Interpretation ABG results: PT/INR, D-dimer PT 11.3 Seconds (9.4-12.1) 05/29/18 13:43 Consult Discharge Plan - Plan Referrals: Tamiko Loco, DIRECTOR OF RETAIL MARKETING [Primary Care Provider] - (1) Chest pain Qualifiers: Chest pain type: unspecified Qualified Code(s): R07.9 - Chest pain, unspecified (2) Altered mental status Qualifiers: Altered mental status type: delirium Qualified Code(s): R41.0 - Disorientation, unspecified (3) Alzheimer's dementia Qualifiers: Alzheimer's disease onset: unspecified onset Dementia behavioral disturbance: with behavioral disturbance Qualified Code(s): G30.9 - Alzheimer's disease, unspecified; F02.81 - Dementia in other diseases classified elsewhere with behavioral disturbance (5) HLD (hyperlipidemia) Qualifiers: Hyperlipidemia type: pure hypercholesterolemia Qualified Code(s): E78.00 - Pure hypercholesterolemia, unspecified; E78.0 - Pure hypercholesterolemia (6) HTN (hypertension) Qualifiers: Hypertension type: essential hypertension Qualified Code(s): I10 - Essential (primary) hypertension
[2018-05-31] MEDS: Melatonin 3 MG TABLET PO SCH (21:29)
[2018-05-31] MEDS: amLODIPine 5 MG TABLET PO SCH (21:30)
[2018-06-01] MEDS: *HR* Heparin 5,000 UNIT/ML VIAL SQ SCH ×2 (06:34→18:38)
[2018-06-01] MEDS: Lisinopril 20 MG TABLET PO SCH (08:33)
[2018-06-01] MEDS: Finasteride 5 MG TABLET PO SCH (08:33)
[2018-06-01] MEDS: Aspirin 81 MG TAB.CHEW PO SCH (08:33)
[2018-06-01] MEDS: Isosorbide MONOnitrate (24 HR) 30 MG TAB.ER.24H PO SCH (08:33)
--- NOTE | 2018-06-01 13:12 | Internal Med Progress Note ---
Hospitalist Progress Note - Encounter Date of Encounter: 06/01/18 Time of Encounter: 13:09 - Subjective Interval History: Mr. Denney is a 77 year old male w/PMH of HTN, HLD, urinary retention, mild dementia, anxiety and depression pt who was recently discharged to [place] in April, now he was brought to ER b family c/o pt has been c/o sub sternal c hest pain from last 2 days. Also pt is becoming more agitated and confused family unable to care for him. He is alert, awake and Oriented to self only. Seems very confused and demented. However he is still c.o chest pain, non radiating pain. Unable to describe what kind of pain. He was admitted in the hospital and placed him on director of cardiac cath lab. His serial troponin came back as negative. He denied any active CP today. However he is c/o generalized pains, hurts every where. He is also confused and demented unable to provide a good reliable history. No events over night. Denied any suicidal ideations - Exam Vitals: Temp Pulse Resp BP Pulse Ox 97.8 F 64 16 115/62 96 06/01/18 11:16 06/01/18 11:16 06/01/18 11:16 06/01/18 11:16 06/01/18 11:16 Exam: Gen: Alert, awake, Oriented to self.. Demented. Chest: Diminished breath sounds B/L, No wheezing, No crackles, No rales Heart: S1S2+ RRR No murmurs Abd: Soft, NT, BS +, No organomegaly Ext: No edema, pulses are palpable, No calf tenderness Neuro : no focal neuro deficits, demented Psych: No suicidal ideations Skin: No rash. - Assessment and Plan (1) Chest pain Current Visit: Yes Status: Acute Assessment and Plan: His serial troponin were negative EKG reviewed - NSR, no acute ischemic changes noticed His stress test came back as slightly abnormal. There is a small sized reversible perfusion defect which is mild in intensity in the mid-inferolateral segment. Card consulted.. who evaluated the pt and recommend medical management only started on ASA, Imdur and Metoprolol. 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 for which he need to be evaluated mental health dept for clearance Still waiting on their clearance SW working on it (3) Alzheimer's dementia Current Visit: No Status: Acute (4) DVT prophylaxis Current Visit: No Status: Acute Assessment and Plan: Sub Q heparin (5) HLD (hyperlipidemia) Current Visit: No Status: Chronic Assessment and Plan: on statin (6) HTN (hypertension) Current Visit: No Status: Chronic Assessment and Plan: Stable with home medications (7) Urinary retention Current Visit: Yes Status: Acute Assessment and Plan: Family complaining about patient does have urinary retention Will do frequent bladder scans continue close monitoring - Time Spent with Patient Total time spent is greater than 50% in coordination of care (as documented) at patient's floor/unit and/or counseling patient: Internal Medicine: Result - Labs CBC & Chem 7: 05/29/18 13:43 05/29/18 13:43 - ABG Interpretation ABG results: PT/INR, D-dimer PT 11.3 Seconds (9.4-12.1) 05/29/18 13:43 Consult Discharge Plan - Plan Referrals: Tmaiko Loco, CARTOON ANIMATOR [Primary Care Provider] - (Please call once discharged and schedule hospital follow up appointment for 7-10 days from date of discharge. ) (1) Chest pain Qualifiers: Chest pain type: unspecified Qualified Code(s): R07.9 - Chest pain, unspecified (2) Altered mental status Qualifiers: Altered mental status type: delirium Qualified Code(s): R41.0 - Disor ientation, unspecified (3) Alzheimer's dementia Qualifiers: Alzheimer's disease onset: unspecified onset Dementia behavioral disturbance: with behavioral disturbance Qualified Code(s): G30.9 - Alzheimer's disease, uns pecified; F02.81 - Dementia in other diseases classified elsewhere with behavioral disturbance (5) HLD (hyperlipidemia) Qualifiers: Hyperlipidemia type: pure hypercholesterolemia Qualified Code(s): E78.00 - Pure hypercholesterolemia, unspecified; E78.0 - Pure hypercholesterolemia (6) HTN (hypertension) Qualifiers: Hypertension type: essential hypertension Qualified Code(s): I10 - Essential (primary) hypertension
[2018-06-01] MEDS: Melatonin 3 MG TABLET PO SCH (20:29)
[2018-06-01] MEDS: amLODIPine 5 MG TABLET PO SCH (20:29)
[2018-06-01] MEDS: Acetaminophen 325 MG TABLET PO PRN (20:55)
[2018-06-02] MEDS: *HR* Heparin 5,000 UNIT/ML VIAL SQ SCH ×2 (05:38→17:45)
[2018-06-02] MEDS: Finasteride 5 MG TABLET PO SCH (08:30)
[2018-06-02] MEDS: Acetaminophen 325 MG TABLET PO PRN ×2 (08:30→14:21)
[2018-06-02] MEDS: Isosorbide MONOnitrate (24 HR) 30 MG TAB.ER.24H PO SCH (08:31)
[2018-06-02] MEDS: Aspirin 81 MG TAB.CHEW PO SCH (08:31)
[2018-06-02] MEDS: Lisinopril 20 MG TABLET PO SCH (08:31)
--- NOTE | 2018-06-02 10:36 | Discharge Summary ---
- NOTES TO OUTPATIENT PROVIDER Notes to Outpatient Provider: Follow up with PCP in one week. Follow-up with [facility] in 2 weeks. Orders not resulted at time of discharge: Pending orders 05/29/18 16:06 NM benoit perf SPECT multi [NM] Routine Date of Encounter: 06/02/18 Time of Encounter: 10:34 - Discharge Diagnosis (1) Chest pain Priority: Primary Status: Acute Qualifiers: Chest pain type: unspecified Qualified Code(s): R07.9 - Chest pain, unspecified (2) Altered mental status Priority: Primary Status: Acute Qualifiers: Altered mental status type: delirium Qualified Code(s): R41.0 - Disorientation, unspecified (3) Alzheimer's dementia Priority: Secondary Status: Acute Qualifiers: Alzheimer's disease onset: unspecified onset Dementia behavioral disturbance: with behavioral disturbance Qualified Code(s): G30.9 - Alzh eimer's disease, unspecified; F02.81 - Dementia in other diseases classified elsewhere with behavioral disturbance (4) DVT prophylaxis Priority: Secondary Status: Acute (5) HLD (hyperlipidemia) Priority: Secondary Status: Chronic Qualifiers: Hyperlipidemia type: pure hypercholesterolemia Qualified Code(s): E78.00 - Pure hypercholesterolemia, unspecified; E78.0 - Pure hypercholesterolemia (6) HTN (hypertension) Priority: Secondary Status: Chronic Qualifiers: Hypertension type: essential hypertension Qualified Code(s): I10 - Essential (primary) hypertension (7) Urinary retention Priority: Secondary Status: Acute Hospital course: Mr. Denney is a 77 year old male w/PMH of HTN, HLD, urinary retention, mild dementia, anxiety and depression pt who was recently discharged to [place] in April, now he was brought to ER b family c/o pt has been c/o sub sternal chest pain from last 2 days. Also pt is becoming more agitated and confused family unable to care for him. He is alert, awake and Oriented to self only. Seems very confused and demented. However he is still c.o chest pain, non radiating pain. Unable to describe what kind of pain. He was admitted in the hospital and placed him on campus monitor. His serial troponin came back as negative. He did go for nuclear stress test. His stress test came back as slightly abnormal. There is a small sized reversible perfusion defect which is mild in intensity in the mid-inferolateral segment. Pt was evaluated by cardiology who recommended medical management only. Pt was started on low dose Metoprolol and Imdur. Also continued his home med ASA, Pravastatin and Lisinopril. He denied any more active CP. He is more alert, awake and O to self only, pleasantly demented. He does not have any behavioral issues now. He denied any suicidal ideation / thoughts. He was cleared by [facility] department to transfer to [facility] for placement. So will d/c him to [facility] in stable condition today. - Time Spent with Patient Total time spent providing and/or coordinating discharge services: - Discharge Medications Prescriptions: No Action Lisinopril [Zestril] 20 mg PO QAM Finasteride [Proscar] 5 mg PO QAM Pravastatin Sodium 10 mg PO HS Aspirin 81 mg PO DAILY amLODIPine [Norvasc] 5 mg PO HS Melatonin 5 mg Tablet 5 mg PO HS Home Medications: Aspirin 81 mg PO DAILY 10/09/14 [History] Finasteride [Proscar] 5 mg PO QAM 10/09/14 [History] Lisinopril [Zestril] 20 mg PO QAM 10/09/14 [History] Pravastatin Sodium 10 mg PO HS 10/09/14 [History] amLODIPine [Norvasc] 5 mg PO HS 05/01/18 [History] Melatonin 5 mg Tablet 5 mg PO HS 05/29/18 [History] Allergies/Adverse Reactions: Allergy/AdvReac Type Severity Reaction Status Date / Time No Known Allergies Allergy Verified 05/13/18 19:06 Date of admission: 05/29/18 16:04 Primary care physician: Tamiko Loco CNP Consults: 05/30/18 08:48 Consult to [employer] [CONS] Routine Reason for SW Consult: PLACEMENT TO [place] [employer] RESIDENT 05/30/18 13:14 Consult to Cardiology [CONS] Routine Comment: Consulting Provider: Cardiology [facility] Reason for Consult: Abnormal stress test Time Notified: 13:15 Call Completed: Yes - Constitutional Vitals: Temp Pulse Resp BP Pulse Ox 97.9 F 62 16 116/67 97 06/02/18 06:47 06/02/18 06:47 06/02/18 06:47 06/02/18 06:47 06/02/18 06:47 General appearance: Present: A&O X 1, no acute distress, answers questions appropriately Exam: Gen: Alert, awake, Oriented to self.. Demented. Chest: Diminished breath sounds B/L, No wheezing, No crackles, No rales Heart: S1S2+ RRR No murmurs Abd: Soft, NT, BS +, No organomegaly Ext: No edema, pulses are palpable, No calf tenderness Neuro : no focal neuro deficits, demented Psych: No suicidal ideations Skin: No rash. - Patient Status Disposition: Transfer SNF Condition: Good Overall status at discharge: patient is back to baseline - Discharge Instructions Follow Up With: Tamiko Loco CNP [Primary Care Provider] - (Please call once discharged and schedule hospital follow up appointment for 7-10 days from date of discharge. ) Linsey Jenkins MD [Non-Partnered Physician] - - Diet and Activity Activity: increase activity as tolerated Diet: low salt diet
--- NOTE | 2018-06-02 10:46 | Physician Discharge Referral ---
ExtendedCare Referral Info Transfer To: [facility] Provider in Charge after Transfer: PCP Institutional Level of Care: Skilled - Diagnosis (1) Chest pain Status: Acute (2) Altered mental status Status: Acute (3) Alzheimer's dementia Status: Acute (4) DVT prophylaxis Status: Acute (5) HLD (hyperlipidemia) Status: Chronic (6) HTN (hypertension) Status: Chronic (7) Urinary retention Status: Acute - Transfer Medications Prescriptions: Isosorbide MONOnitrate (24 HR) [Imdur] 30 mg PO DAILY #30 tab.er.24h Metoprolol [Lopressor] 25 mg PO BID #60 tablet Home Medications: Aspirin 81 mg PO DAILY 10/09/14 [History] Finasteride [Proscar] 5 mg PO QAM 10/09/14 [History] Lisinopril [Zestril] 20 mg PO QAM 10/09/14 [History] Pravastatin Sodium 10 mg PO HS 10/09/14 [History] amLODIPine [Norvasc] 5 mg PO HS 05/01/18 [History] Melatonin 5 mg Tablet 5 mg PO HS 05/29/18 [History] Isosorbide MONOnitrate (24 HR) [Imdur] 30 mg PO DAILY #30 tab.er.24h 06/02/18 [Rx] Metoprolol [Lopressor] 25 mg PO BID #60 tablet 06/02/18 [Rx] Allergies/Adverse Reactions: Allergy/AdvReac Type Severity Reaction Status Date / Time No Known Allergies Allergy Verified 05/13/18 19:06 - Respiratory Orders Smoking Cessation: Smoking cessation has been advised. For more information, call the [place] Tobacco Quit Line at 8-840-LNMG-NOW. CERTIFICATION: I certify that the transfer of the above named patient to an Extended Care Facility is necessary for the continuing treatment of the diagnosis listed. The above information is true and accurate reflection of patient's current condition. Confidential - Redisclosure prohibited without a patient's written consent.
[2018-06-02] MEDS: *HR* HYDROcodone/Acet 5/325 mg TABLET PO PRN (17:45)
[2018-06-02] MEDS: amLODIPine 5 MG TABLET PO SCH (22:07)
[2018-06-02] MEDS: Melatonin 3 MG TABLET PO SCH (22:07)
[2018-06-03] MEDS: *HR* Heparin 5,000 UNIT/ML VIAL SQ SCH ×2 (05:24→16:18)
[2018-06-03] MEDS: Acetaminophen 325 MG TABLET PO PRN ×2 (06:34→16:18)
[2018-06-03] MEDS: Finasteride 5 MG TABLET PO SCH (08:49)
[2018-06-03] MEDS: Isosorbide MONOnitrate (24 HR) 30 MG TAB.ER.24H PO SCH (08:49)
[2018-06-03] MEDS: Aspirin 81 MG TAB.CHEW PO SCH (08:49)
[2018-06-03] MEDS: Lisinopril 20 MG TABLET PO SCH (08:50)
--- NOTE | 2018-06-03 13:14 | Internal Med Progress Note ---
Hospitalist Progress Note - Encounter Date of Encounter: 06/03/18 Time of Encounter: 13:11 - Subjective Interval History: Patient seen and examined earlier today. Pt remains pleasantly confused and appears to be at baseline as per med records and nursing reports. Pt denies any discomfort. Pt was discharged to SNF yesterday(06/02/18), however discharge was placed on hold due to insurance issues. The SNF pt was accepted at did not accept pt's insurance and family is unable to afford the placement. Case management is on board for placement at another facility. No overnight events reported - Exam Vitals: Temp Pulse Resp BP Pulse Ox 97.3 F L 65 16 110/66 95 06/03/18 06:25 06/03/18 06:25 06/03/18 06:25 06/03/18 06:25 06/03/18 06:25 Exam: Gen: Alert, awake, Oriented to self, pleasantly confused, has underlying dementia, no acute distress Chest: equal air entry bilaterally, No wheezing, No crackles, No rales Heart: S1S2+ RRR No murmurs Abd: Soft, NT, BS +, No organomegaly Ext: No edema, pulses are palpable, No calf tenderness Neuro : no focal neuro deficits, demented Skin: No rash. Rest of the physical exam is noncontributory - Assessment and Plan (1) HTN (hypertension) Current Visit: No Status: Chronic Assessment and Plan: BP within acceptable range continue current management closely monitor BP (2) Altered mental status Current Visit: No Status: Resolved Assessment and Plan: Mental status at baseline no behavior disturbances reported will continue home meds for dementia (3) Alzheimer's dementia Current Visit: No Status: Chronic (4) HLD (hyperlipidemia) Current Visit: No Status: Chronic Assessment and Plan: continue statin therapy (5) Chest pain Current Visit: Yes Status: Resolved Assessment and Plan: s/p cardiac work up including stress test cardiology recommending medical management will continue Aspirin, Imdu, Lisinopril, Metoprolol, Statin therapy at this time no chest pain reported at this time (6) DVT prophylaxis Current Visit: No Status: Acute Assessment and Plan: heparin SQ - Time Spent with Patient Total time spent is greater than 50% in coordination of care (as documented) at patient's floor/unit and/or counseling patient: 25 - 35 minutes Plan of Care Discussed with: patient (patient/RN) Internal Medicine: Result - Labs CBC & Chem 7: 05/29/18 13:43 05/29/18 13:43 - ABG Interpretation ABG results: PT/INR, D-dimer PT 11.3 Seconds (9.4-12.1) 05/29/18 13:43 Consult Discharge Plan - Plan Instructions: Chest Pain (DC) Additional Instructions: Follow-up appointments: If there is not an appointment listed below, please call your physician and schedule a follow-up appointment. If you have congestive heart failure and your symptoms return, make an appointment with your physician. Medication List: Carry an up to date list of medications you are taking at all time. We have given you an updated medication list including any new medications that you have been prescribed. Please provide that list to your primary provider Symptoms: If your condition changes or you experience any of the following symptoms, notify your physician immediately: Unusual or worsening pain, fever, persistent nausea and vomiting, bleeding, increase in swelling (especially in your legs), sudden weight gain, extreme dizziness, chest pain, increased drainage or redness from a wound or incision. Go to the emergency department if you experience a problem with breathing. Weights: If you have a history of swelling or shortness of breath, weigh yourself daily and notify your physician if you have a weight gain of two or more pounds in one day or 5 or more pounds in a week. If you experience any of the warning signs for stroke: Sudden numbness or weakness of the face, arm or leg; especially on one side of the body, sudden confusion, trouble speaking or understanding, sudden trouble seeing in one or both eyes, sudden trouble walking, dizziness, loss of balance or coordination, sudden sever headache with no cause; Call 911 or go to the emergency room. Stroke is a medical emergency. Some risk factors for stroke: Age, cigarette smoking, diabetes, excessive alcohol consumption, family history, high blood pressure, overweight, physical inactivity, prior stroke, heart attack, diagnosis of carotid artery stenosis or other artery disease. If you smoke, STOP: Smoking or tobacco use significantly increases your risk of heart and lung disease. Your chance of disease greatly increases if you continue to smoke. For more information, call the [place] tobacco quit line for smoking cessation 1-220-CZJT-NOW ( ) Referrals: Linsey Jenkins MD [Non-Partnered Physician] - ([facility] has been requested. Our offices will call with an appointment time and date.) Tamiko Loco, ASSISTANT SCIENTIST [Primary Care Provider] - (Please call once discharged and schedule hospital follow up appointment for 7-10 days from date of discharge. ) Prescriptions: Isosorbide MONOnitrate (24 HR) [Imdur] 30 mg PO DAILY #30 tab.er.24h Metoprolol [Lopressor] 25 mg PO BID #60 tablet (1) HTN (hypertension) Qualifiers: Hypertension type: essential hypertension Qualified Code(s): I10 - Essential (primary) hypertension (2) Altered mental status Qualifiers: Altered mental status type: delirium Qualified Code(s): R41.0 - Disorientation, unspecified (3) Alzheimer's dementia Qualifiers: Alzheimer's disease onset: unspecified onset Dementia behavioral disturbance: with behavioral disturbance Qualified Code(s): G30.9 - Alzheimer's disease, unspecified; F02.81 - Dementia in other diseases classified elsewhere with behavioral disturbance (4) HLD (hyperlipidemia) Qualifiers: Hyperlipidemia type: pure hypercholesterolemia Qualified Code(s): E78.00 - Pure hypercholesterolemia, unspecified; E78.0 - Pure hypercholesterolemia (5) Chest pain Qualifiers: Chest pain type: unspecified Qualified Code(s): R07.9 - Chest pain, unspecified
[2018-06-03] MEDS: Ondansetron 4 MG/2 ML VIAL IVP PRN (18:25)
[2018-06-03] MEDS: Melatonin 3 MG TABLET PO SCH (20:46)
[2018-06-03] MEDS: amLODIPine 5 MG TABLET PO SCH (20:46)
[2018-06-04] MEDS: Acetaminophen 325 MG TABLET PO PRN ×4 (03:13→21:44)
[2018-06-04] MEDS: Ondansetron 4 MG/2 ML VIAL IVP PRN (03:44)
[2018-06-04] MEDS ORDERED: Menthol 9.1 MG LOZENGE PO PRN (04:01)
[2018-06-04] MEDS: *HR* Heparin 5,000 UNIT/ML VIAL SQ SCH ×2 (05:23→17:08)
[2018-06-04] MEDS: *HR* HYDROcodone/Acet 5/325 mg TABLET PO PRN ×2 (06:39→13:37)
[2018-06-04 08:04] LABS: Bilirubin,Urine Negative (Negative); Blood,Urine Negative (Negative); Clarity,Urine Clear (Clear); Color,Urine Yellow (Yellow); Glucose,Urine (UA) Normal (Normal); Ketones,Urine Negative (Negative); Leukocyte Esterase,Urine Negative (Negative); Nitrite,Urine Negative (Negative); Protein,Urine Negative (Neg-Trace); Specific Gravity,Urine 1.013 (1.010-1.025); Urobilinogen,Urine Normal (Normal)
[2018-06-04] MEDS: Aspirin 81 MG TAB.CHEW PO SCH (09:15)
[2018-06-04] MEDS: Finasteride 5 MG TABLET PO SCH (09:15)
[2018-06-04] MEDS: Lisinopril 20 MG TABLET PO SCH (09:15)
[2018-06-04] MEDS: Isosorbide MONOnitrate (24 HR) 30 MG TAB.ER.24H PO SCH (09:15)
--- NOTE | 2018-06-04 13:47 | Internal Med Progress Note ---
Hospitalist Progress Note - Encounter Date of Encounter: 06/04/18 Time of Encounter: 13:42 - Subjective Interval History: Pt seen and examined with family present at bedside. Pt remains pleasantly confused and denies any shortness of breath or chest pain at this time. As per daughter, has never had a formal diagnosis of dementia made and are requesting outpatient neurology follow up as well. Family also wishes to speak with social work job titles in regards to the duration of help they can get at home once patient is discharged from SNF. D/c pending placement. No overnight events reported. Ten point ROS is negative except as listed above - Exam Vitals: Temp Pulse Resp BP Pulse Ox 97.5 F L 57 16 99/60 98 06/04/18 11:33 06/04/18 11:33 06/04/18 11:33 06/04/18 11:33 06/04/18 11:33 Exam: Gen: Alert, awake, Oriented to self, pleasantly confused, has underlying dementia, no acute distress Chest: equal air entry bilaterally, No wheezing, No crackles, No rales Heart: S1S2+ RRR No murmurs Abd: Soft, NT, BS +, No organomegaly Ext: No edema, pulses are palpable, No calf tenderness Neuro : no focal neuro deficits, demented Skin: No rash. Rest of the physical exam is noncontributory - Assessment and Plan (1) HTN (hypertension) Current Visit: No Status: Chronic Assessment and Plan: noted to be hypotensive but clinically asymptomatic will hold antihypertensive medications for SBP<100 continue current management closely monitor BP (2) Altered mental status Current Visit: No Status: Resolved Assessment and Plan: Mental status at baseline no behavior disturbances reported will continue home meds for dementia (3) Alzheimer's dementia Current Visit: No Status: Chronic (4) HLD (hyperlipidemia) Current Visit: No Status: Chronic Assessment and Plan: continue statin therapy (5) Chest pain Current Visit: Yes Status: Resolved Assessment and Plan: s/p cardiac work up including stress test cardiology recommending medical management will continue Aspirin, Imdu, Lisinopril, Metoprolol, Statin therapy at this time no chest pain reported at this time (6) DVT prophylaxis Current Visit: No Status: Acute Assessment and Plan: heparin SQ - Time Spent with Patient Total time spent is greater than 50% in coordination of care (as documented) at patient's floor/unit and/or counseling patient: 25 - 35 minutes Plan of Care Discussed with: patient (patient/family/RN) Internal Medicine: Result - Labs CBC & Chem 7: 05/29/18 13:43 05/29/18 13:43 Labs: Urine 06/04/18 Range/Units 07:58 Urine Color Yellow (Yellow) Urine Clarity Clear (Clear) Urine pH 6.0 (5.0-8.0) pH Units Ur Specific [place] 1.013 (1.010-1.025) Urine Protein Negative (Neg-Trace) mg/dL Urine Glucose (UA) Normal (Normal) mg/dL - ABG Interpretation ABG results: PT/INR, D-dimer PT 11.3 Seconds (9.4-12.1) 05/29/18 13:43 Consult Discharge Plan - Plan Instructions: Chest Pain (DC) Additional Instructions: Follow-up appointments: If there is not an appointment listed below, please call your physician and schedule a follow-up appointment. If you have congestive heart failure and your symptoms return, make an appointment with your physician. Medication List: Carry an up to date list of medications you are taking at all time. We have given you an updated medication list including any new medications that you have been prescribed. Please provide that list to your primary provider Symptoms: If your condition changes or you experience any of the following symptoms, notify your physician immediately: Unusual or worsening pain, fever, persistent nausea and vomiting, bleeding, increase in swelling (especially in your legs), sudden weight gain, extreme dizziness, chest pain, increased drainage or redness from a wound or incision. Go to the emergency department if you experience a problem with breathing. Weights: If you have a history of swelling or shortness of breath, weigh yourself daily and notify your physician if you have a weight gain of two or more pounds in one day or 5 or more pounds in a week. If you experience any of the warning signs for stroke: Sudden numbness or weakness of the face, arm or leg; especially on one side of the body, sudden confusion, trouble speaking or understanding, sudden trouble seeing in one or both eyes, sudden trouble walking, dizziness, loss of balance or coordination, sudden sever headache with no cause; Call 911 or go to the emergency room. Stroke is a medical emergency. Some risk factors for stroke: Age, cigarette smoking, diabetes, excessive alcohol consumption, family history, high blood pressure, overweight, physical inactivity, prior stroke, heart attack, diagnosis of carotid artery stenosis or other artery disease. If you smoke, STOP: Smoking or tobacco use significantly increases your risk of heart and lung disease. Your chance of disease greatly increases if you continue to smoke. For more information, call the [place] tobacco quit line for smoking cessation 3-387-DLVD-NOW ( ) Referrals: Linsey Jenkins MD [Non-Partnered Physician] - ([facility] has been requested. Our offices will call with an appointment time and date.) Tamiko Loco CNP [Primary Care Provider] - (Please call once discharged and schedule hospital follow up appointment for 7-10 days from date of discharge. ) Prescriptions: Isosorbide MONOnitrate (24 HR) [Imdur] 30 mg PO DAILY #30 tab.er.24h Metoprolol [Lopressor] 25 mg PO BID #60 tablet (1) HTN (hypertension) Qualifiers: Hypertension type: essential hypertension Qualified Code(s): I10 - Essential (primary) hypertension (2) Altered mental status Qualifiers: Altered mental status type: delirium Qualified Code(s): R41.0 - Disorientation, unspecified (3) Alzheimer's dementia Qualifiers: Alzheimer's disease onset: unspecified onset Dementia behavioral disturbance: with behavioral disturbance Qualified Code(s): G30.9 - Alzheimer's disease, unspecified; F02.81 - Dementia in other diseases classified elsewhere with behavioral disturbance (4) HLD (hyperlipidemia) Qualifiers: Hyperlipidemia type: pure hypercholesterolemia Qualified Code(s): E78.00 - Pure hypercholesterolemia, unspecified; E78.0 - Pure hypercholesterolemia (5) Chest pain Qualifiers: Chest pain type: unspecified Qualified Code(s): R07.9 - Chest pain, unspecified
[2018-06-04] MEDS: amLODIPine 5 MG TABLET PO SCH (21:39)
[2018-06-04] MEDS: Melatonin 3 MG TABLET PO SCH (21:43)
[2018-06-05] MEDS: *HR* Heparin 5,000 UNIT/ML VIAL SQ SCH (06:06)
[2018-06-05] MEDS: Acetaminophen 325 MG TABLET PO PRN ×2 (06:12→10:30)
[2018-06-05] MEDS: Lisinopril 20 MG TABLET PO SCH (10:30)
[2018-06-05] MEDS: Finasteride 5 MG TABLET PO SCH (10:30)
[2018-06-05] MEDS: Isosorbide MONOnitrate (24 HR) 30 MG TAB.ER.24H PO SCH (10:30)
[2018-06-05] MEDS: *HR* HYDROcodone/Acet 5/325 mg TABLET PO PRN (10:30)
[2018-06-05] MEDS: Aspirin 81 MG TAB.CHEW PO SCH (10:31)
[2018-06-05 10:42] VITALS: BP 144/77
--- NOTE | 2018-06-05 11:25 | Internal Med Progress Note ---
Hospitalist Progress Note - Encounter Date of Encounter: 06/05/18 Time of Encounter: 11:21 - Subjective Interval History: Patient was seen and examined at bedside. He is more alert, awake and O to self. Denied any CP. He was not able to go to ECF on Tuesday due to staffing issues. - Exam Vitals: Temp Pulse Resp BP Pulse Ox 98.1 F 73 15 144/77 99 06/05/18 10:45 06/05/18 10:45 06/05/18 10:45 06/05/18 10:45 06/05/18 10:45 Exam: Gen: Alert, awake, Oriented to self, pleasantly confused, has underlying dementia, no acute distress Chest: Diminished BS b/l, no crackles no rales Heart: S1S2+ RRR No murmurs Abd: Soft, NT, BS +, No organomegaly Ext: No edema, pulses are palpable, No calf tenderness Neuro : no focal neuro deficits, demented Skin: No rash. - Assessment and Plan (1) Chest pain Current Visit: Yes Status: Resolved Assessment and Plan: His stress test came back as slightly abnormal. There is a small sized reversible perfusion defect which is mild in intensity in the mid-inferolateral segment. Card consulted.. who evaluated the pt and recommend medical management only started on ASA, Imdur and Metoprolol. Cont Lisinopril reviewed his lipid profile - LDL @ 78 appreciate cardiology recommendations Will d/c him to ECF with above mentioned meds in a stable condition. (2) HTN (hypertension) Current Visit: No Status: Chronic Assessment and Plan: Stable blood pressure with current medication (3) Altered mental status Current Visit: No Status: Resolved Assessment and Plan: Seems to be at baseline his altered mental status due to advanced dementia needed placement patient is getting discharged to ECF today (4) Alzheimer's dementia Current Visit: No Status: Chronic (5) HLD (hyperlipidemia) Current Visit: No Status: Chronic Assessment and Plan: continue statin therapy (6) DVT prophylaxis Current Visit: No Status: Acute Assessment and Plan: heparin SQ - Time Spent with Patient Total time spent is greater than 50% in coordination of care (as documented) at patient's floor/unit and/or counseling patient: Internal Medicine: Result - Labs CBC & Chem 7: 05/29/18 13:43 05/29/18 13:43 - ABG Interpretation ABG results: PT/INR, D-dimer PT 11.3 Seconds (9.4-12.1) 05/29/18 13:43 Consult Discharge Plan - Plan Instructions: Metoprolol (By mouth), Isosorbide Mononitrate (By mouth), Chest Pain (DC) Additional Instructions: Follow-up appointments: If there is not an appointment listed below, please call your physician and schedule a follow-up appointment. If you have congestive heart failure and your symptoms return, make an appointment with your physician. Medication List: Carry an up to date list of medications you are taking at all time. We have given you an updated medication list including any new medications that you have been prescribed. Please provide that list to your primary provider Symptoms: If your condition changes or you experience any of the following symptoms, notify your physician immediately: Unusual or worsening pain, fever, persistent nausea and vomiting, bleeding, increase in swelling (especially in your legs), sudden weight gain, extreme dizziness, chest pain, increased drainage or redness from a wound or incision. Go to the emergency department if you experience a problem with breathing. Weights: If you have a history of swelling or shortness of breath, weigh yourself daily and notify your physician if you have a weight gain of two or more pounds in one day or 5 or more pounds in a week. If you experience any of the warning signs for stroke: Sudden numbness or weakness of the face, arm or leg; especially on one side of the body, sudden confusion, trouble speaking or understanding, sudden trouble seeing in one or both eyes, sudden trouble walking, dizziness, loss of balance or coordination, sudden sever headache with no cause; Call 911 or go to the emergency room. Stroke is a medical emergency. Some risk factors for stroke: Age, cigarette smoking, diabetes, excessive alcohol consumption, family history, high blood pressure, overweight, physical inactivity, prior stroke, heart attack, diagnosis of carotid artery stenosis or other artery disease. If you smoke, STOP: Smoking or tobacco use significantly increases your risk of heart and lung disease. Your chance of disease greatly increases if you continue to smoke. For more information, call the [place] tobacco quit line for smoking cessation -NOW ( ) Referrals: Linsey Jenkins MD [Non-Partnered Physician] - ([facility] has been requested. Our offices will call with an appointment time and date.) Tamiko Loco, MUNICIPAL SERVICES MANAGER [Primary Care Provider] - (Please call once discharged and schedule hospital follow up appointment for 7-10 days from date of discharge. ) Prescriptions: HYDROcodone/Acet 5/325 mg [Allen 5-325 mg] 1 tab PO Q8HR PRN 5 Days #15 tablet PRN Reason: Moderate Pain Isosorbide MONOnitrate (24 HR) [Imdur] 30 mg PO DAILY #30 tab.er.24h Metoprolol [Lopressor] 25 mg PO BID #60 tablet (1) Chest pain Qualifiers: Chest pain type: unspecified Qualified Code(s): R07.9 - Chest pain, unspecified (2) HTN (hypertension) Qualifiers: Hypertension type: essential hypertension Qualified Code(s): I10 - Essential (primary) hypertension (3) Altered mental status Qualifiers: Altered mental status type: delirium Qualified Code(s): R41.0 - Disorientation, unspecified (4) Alzheimer's dementia Qualifiers: Alzheimer's disease onset: unspecified onset Dementia behavioral disturbance: with behavioral disturbance Qualified Code(s): G30.9 - Alzheimer's disease, unspecified; F02.81 - Dementia in other diseases classified elsewhere with behavioral disturbance (5) HLD (hyperlipidemia) Qualifiers: Hyperlipidemia type: pure hypercholesterolemia Qualified Code(s): E78.00 - Pure hypercholesterolemia, unspecified; E78.0 - Pure hypercholesterolemia
== END 2018-06-05 13:05 ==
LOC: EMEROOARM 12:29 → 3BNU 12:29 → SUATTDRO 16:04 → 3BNU 16:46
PROVIDERS: ADMIT Hospitalist; ATTEND Family Medicine

== ENCOUNTER 2021-04-22 05:17 | Observation (INO) ==
[2021-04-22] MEDS ORDERED: Naloxone 0.4 MG/ML INJ IVP PRN (08:32)
[2021-04-22] MEDS ORDERED: Melatonin 3 MG TABLET PO PRN (08:32)
[2021-04-22] MEDS ORDERED: Ondansetron ODT 4 MG TAB.RAPDIS SL PRN (08:32)
[2021-04-22] MEDS ORDERED: Acetaminophen 325 MG TABLET PO PRN (08:32)
[2021-04-22] MEDS: Finasteride 5 MG TABLET PO SCH (09:53)
[2021-04-22] MEDS: QUEtiapine Fumarate 25 MG TABLET PO SCH ×2 (09:53→19:48)
[2021-04-22] MEDS: Divalproex (12 HR) 250 MG TABLET PO SCH ×2 (09:53→19:48)
[2021-04-22] MEDS: Rivastigmine Patch 4.6 MG PATCH.TD24 TD SCH (09:57)
[2021-04-22] MEDS: *HR* Heparin 5,000 UNIT/ML VIAL SQ SCH ×2 (15:50→22:00)
[2021-04-22] MEDS ORDERED: traZODone 50 MG TABLET PO SCH (21:00)
[2021-04-22] MEDS ORDERED: Divalproex (12 HR) 500 MG TABLET PO SCH (21:00)
[2021-04-23 01:16] LABS: Basophils # 0.1 K/mcL (0.0-0.2); Basophils % 0.6 %; Eosinophils # 0.3 K/mcL (0.0-0.6); Eosinophils % 3.1 %; Hematocrit 41.1 % (37.5-50.1); Hemoglobin 14.2 g/dL (12.9-16.9); Immature Granulocytes % 0.5 % (0-4); Lymphocytes # 3.8 K/mcL (0.6-4.6); Lymphocytes % 35.7 %; Mean Corpuscular HGB Conc 34.5 g/dL (31.6-35.5); Mean Corpuscular Hemoglobin 31.3 pg (28.0-33.3); Mean Corpuscular Volume 90.7 fL (83.0-100.0); Mean Platelet Volume 10.8 fL (9.4-12.4); Monocytes # 1.4 K/mcL (0.0-1.3); Monocytes % 13.3 %; Platelet Count 232 K/mcL (140-400); Red Blood Count 4.53 M/mcL (4.19-5.50); Red Cell Distribution Width 13.2 % (11.5-14.5); Segmented Neutrophils % 46.8 %; White Blood Count 10.6 K/mcL (4.3-11.1)
[2021-04-23 01:23] LABS: Prothrombin Time 11.2 Seconds (9.4-12.1)
[2021-04-23 01:35] LABS: BUN/Creatinine Ratio 14 (6-26); Blood Urea Nitrogen 13 mg/dL (8-23); Calcium 9.5 mg/dL (8.6-10.3); Carbon Dioxide 27 mEq/L (23-29); Chloride 101 mEq/L (98-107); Glucose 91 mg/dL (70-105); Osmolality,Calculated 282 (280-300); Potassium 4.5 mEq/L (3.5-5.1); Sodium 136 mEq/L (136-145); eGFR For African Americans > 60 (> 60); eGFR For Non-African Americans > 60 (> 60)
[2021-04-23] MEDS: *HR* Heparin 5,000 UNIT/ML VIAL SQ SCH ×2 (06:00→13:10)
[2021-04-23] MEDS ORDERED: Aspirin 81 MG TAB.CHEW PO SCH (09:00)
[2021-04-23] MEDS ORDERED: amLODIPine 5 MG TABLET PO SCH (09:00)
[2021-04-23] MEDS: QUEtiapine Fumarate 25 MG TABLET PO SCH (09:56)
[2021-04-23] MEDS: Divalproex (12 HR) 250 MG TABLET PO SCH (09:56)
[2021-04-23] MEDS: Finasteride 5 MG TABLET PO SCH (09:56)
[2021-04-23] MEDS: Rivastigmine Patch 4.6 MG PATCH.TD24 TD SCH (09:57)
[2021-04-23 11:06] VITALS: PULSE 67
[2021-04-23 12:36] LABS: Influenza A PCR Negative (Negative); Influenza B PCR Negative (Negative); Resp. Syncytial Virus PCR Negative (Negative)
[2021-04-23 12:39] LABS: SARS-CoV-2 by PCR (In House) Negative (Negative)
[2021-04-23 15:47] VITALS: BP 129/84; TEMP 97.7; O2SAT 97
== END 2021-04-23 17:14 ==
LOC: 3ANU → SUATTDRO 08:15
PROVIDERS: ADMIT Internal Medicine; ATTEND Internal Medicine